=== PATIENT | male | born 1980 | race Caucasian/White ===

== ENCOUNTER 2016-10-06 14:22 | Outpatient (CLI) | payer MEDICAID ==
[~2016-10-06] VITALS: Ht 175.3 cm; Wt 69.5 kg
[~2016-10-06 14:22] MED LIST changes: -DICY20TA10 PO; -DONE10TA12 PO; -FLUO40CA12 PO; -GABA-488 PO; -MORP30CA16 PO; -OXYC-191 PO; -OXYC-202 PO
--- OUTSIDE RECORDS SUMMARY | 2016-10-06 14:30 | XMS REPORT | Continuity of Care Document ---
Author Author Jackelyn Ivey Jackelyn Address Unknown Phone Unavailable Care Team Providers Care Spray Technician Name Role Phone [employer] Unavailable Unavailable Problems Problem Status Onset Date Classification Date Reported Comments Source Acute diarrhea (disorder) Diagnosis 08/04/2016 [facility]. Intestinal obstruction co-occurrent and due to decreased peristalsis (disorder ) 07/31/2016 Diagnosis 08/04/2016 [facility]. Discharge Diagnosis: History of hydrocephalus 12/13/2015 12/17/2015 [facility] Discharge Diagnosis: Aching headache 12/12/20152015 [facility] Chronic migraine without aura, without mention of intractable migraine, without mention of status migrainosus 02/28/20152014 [facility] Drug induced headache, not elsewhere classified 02/28/2015 03/06/2015 [facility] Reaction to spinal or lumbar puncture 02/28/20152014 [facility] Headache 02/27/2015 03/06/2015 [facility] Obstructive hydrocephalus 03/06/2015 [facility] Opioid type dependence, in remission 12/26/2014 Diagnosis 12/31/2014 [facility]. Headache 11/18/2014 Diagnosis 11/23/2014 [facility]. Painful respiration 2014 Diagnosis 10/05/2014 [facility]. Post-traumatic headache, unspecified 07/26/2014 Diagnosis 07/31/2014 [facility]. Headache 05/11/2014 Diagnosis 05/15/2014 [facility]. Pain in limb 03/31/2014 Diagnosis 04/04/2014 [facility]. Personal history of other disorders of nervous system and sense organs 03/03/2014 Diagnosis 03/07/2014 [facility]. Tobacco user (finding) Resolved 05/27/2013 Problem 2016 Updated by Discern Expert based on Social History Documentation Added by Discern Expert based on Social History Documentation [email or web address] [employer] [facility], [place] [employer] [facility] [place] [employer] [facility], [place] [employer] [facility], [facility] Headache (finding) Active Problem 08/04/2016 [facility] [employer] [facility], [facility], [place] [employer] [facility], [facility] Headache disorder (disorder) Active Problem 08/04/2016 [place] [employer] [facility], [facility] Anxiety (finding) Active Problem 12/17/2015 [facility] Hydrocephalus (disorder) Active Problem 12/17/2015 [facility] Leukocytosis (disorder) Active Problem 12/17/2015 [facility] Migraine (disorder) Active Problem 12/17/2015 [facility] Anxiety state, unspecified 03/06/2015 [facility] Leukocytosis, unspecified 03/06/2015 [facility] Cannabis abuse, unspecified use 03/06/2015 [facility] History of tobacco use 03/06/2015 [facility] Unemployment 03/06/2015 [facility] Final: HEADACHES WO [facility] 03/06/2015 [facility] Other specified visual disturbances 03/02/2015 [facility] Medications Medication Details Route Status Patient Instructions Ordering Provider Order Date Source No Known Medications No known medications Active [place] [employer] [facility] Tdap 0.5 mL, SUSP, IM, ONCE, NOW, 03/09/11 13:58:00, Stop date 03/09/11 13:58:00 Inactive [facility] [place] [email or web address] [facility] propranolol 20 mg oral tablet </br>=40 mg, 2 tab, PO, BID, # 120 tab, 0 Refill(s), tab Active [facility] Acetaminophen 300 MG / butalbital 50 MG / Caffeine 40 MG Oral Capsule </br>1 cap, PO, Q4H, PRN Headache, # 10 cap, 1 Refill(s) Inactive [facility] Acetaminophen 325 MG / Hydrocodone Bitartrate 5 MG Oral Tablet [[place] 5/325] </br>1 tab, tab, ONCE, PO, Start date 03/01/15 11:52:00, Stop date 03/01/15 11: 52:00 </br>Notes: Not to exceed 4000 mg of acetaminophen TOTAL in 24 hours. TIME CRITICAL MED IF SCHEDULED Inactive [facility] Allergies, Adverse Reactions, Alerts Substance Category Reaction Severity Reaction type Status Date Reported Comments Source Morphine Assertion headache Drug intolerance [facility], [place] [employer] morphine drug intolerance headache Adverse Reaction Active [facility] Immunizations Immunization Date Given Site Status Last Updated Comments Source Tdap 03/09/2011 Left Deltoid tetanus/diphth/pertuss (Tdap) adult[facility]ad[facility], [place] [email or web address] [facility] tetanus/diphth/pertuss (Tdap) adult/adol 03/09/2011 completed [facility] No data available for this section No data available for this section [facility] Results Order Name Results Value Reference Range Date Interpretation Comments Source Consultation Consultation Patient: MAURIZIO PARRA Age: 35 years Sex: Male : 78 Associated Diagnoses: None Author: Michelle Balderas History of Present Illness Maurizio Parra is a 35 yo M with a PMHx significant for hydrocephalus s/p shunt removal in 2012. Patient presents to ED today with headache. Patient states that he has had about seven brain surgeries d/t hydrocephalus, the first around 2007 when he had a cerebral drain placed. He had a shunt placed at by Dr. Amaya with several subsequent revisions and a replacement. In 2012, the patient suffered an injury at work in which a heavy object was dropped on his head which resulted in shunt damage and the shunt was eventually removed at [facility] by Dr. Tao. Since that time, the patient has had chronic headaches, bilaterally retro-orbital. The headaches have become worse over the past 5-6 days. Denies fevers, chills or nuchal rigidity. Patient reports nausea and vomiting. Patient denies any recent change to his vision, although states that he just got new glasses yesterday. Patient was seen at [facility] ED in 2014 for similar complaints at which time patient was admitted with lumbar puncture was WNL and brain CT and MRI were obtained which did not demonstrate any acute intracranial process. CT Head was obtained today which demonstrated slight enlargement of 3rd ventricle and frontal horns of lateral ventricle. Review of Systems Constitutional: Negative except as documented in history of present illness. Eye: Negative except as documented in history of present illness. Ear/Nose/Mouth/Throat: Negative except as documented in history of present illness. Respiratory: Negative except as documented in history of present illness. Cardiovascular: Negative except as documented in history of present illness. Gastrointestinal: Negative except as documented in history of present illness. Genitourinary: Negative except as documented in history of present illness. Hematology/Lymphatics: Negative except as documented in history of present illness. Endocrine: Negative except as documented in history of present illness. Immunologic: Negative except as documented in history of present illness. Musculoskeletal: Negative except as documented in history of present illness. Integumentary: Negative except as documented in history of present illness. Neurologic: Negative except as documented in history of present illness. Psychiatric: Negative except as documented in history of present illness. Histories Past Medical History: Hydrocephalus, migraines, GERD Family History: Denies any significant FHx Procedure history: MRSA debridement of R axilla and L thigh "7 Cerebral Surgeries" - 4 at , 3 at [facility] - unsure of dates and exact procedures but states had a cerebral drain placed , a shunt placement, a shunt revision, and a shunt replacement and a shunt removal Social History Denies alcohol, tobacco and drug use. Physical Examination VS/Measurements Vital Signs 12/12/15 19:41 Temperature Route Oral Temperature Oral 97.9 DegF Heart Rate 80 bpm Resp. Rate 18 BRMIN Systolic BP 118 mmHg Diastolic BP 73 mmHg Oxygen Saturation 97 % Oxygen Therapy Room air Respiratory: Lungs are clear to auscultation, Respirations are non-labored, Breath sounds are equal, Symmetrical chest wall expansion. General: Alert and oriented, No acute distress. Cognition and Speech: Oriented, Speech clear and coherent. Eye: Pupils are equal, round and reactive to light, Extraocular movements are intact, Normal conjunctiva, Vision unchanged. HENT: Tympanic membranes are clear, Normal hearing, Oral mucosa is moist, No pharyngeal erythema, scars over right frontemporal scalp. Neck: Supple. Cardiovascular: Normal rate, Regular rhythm, No murmur, No gallop, Good pulses equal in all extremities, Normal peripheral perfusion. Musculoskeletal Normal range of motion. Normal strength. No tenderness. No swelling. No deformity. Normal gait. Integumentary: Warm, Dry, [place]. Neurologic: Alert, Oriented, Normal sensory, Normal motor function, No focal defects, Cranial Nerves II-XII are grossly intact. Review / Management CT Head w/o Cont [id number] - 02/25/15 15:09 Impression: No evidence of acute intracranial pathology. THIS IS AN ELECTRONICALLY VERIFIED REPORT 02/25/2015 3:25 PM: Jaime Brower M.D.GR:robert 03:24 PMT: 02/25/201503:25 pmRI MRI Brain w/o Cont [id number] - 03/01/15 09:26 Impression: 1. Stable dilation of the lateral ventricles and 3rd ventricle as compared to head CT of 02/25/2015. Given associated thinning of the corpus callosum, findings suggest chronicity. Differential considerations include aqueductus stenosis, likely from web or adhesion.2. Post surgical changes of right frontotemporal craniotomy and old right frontal ventriculostomy catheter tract.Dr. Faisal CarrizalesDr. Faisal Carrizales and the staff radiologist have jointly reviewed and interpreted the above examination CT Head w/o Cont [id number] - 12/12/15 20:49 Impression: 1. Enlargement of the ventricles, with slight interval enlargement of the third ventricle as well as the frontal horns of the lateral ventricles compared to the prior examination.2. No acute intracranial hemorrhage.3. Hypodensity in the right frontal region, stable.4. No depressed calvarial fracture. Portion of a prior shunt is visualized within the soft tissues of the right scalp, stable. THIS IS AN ELECTRONICALLY VERIFIED REPORT 2015 9:33 PM: Jaime Ashford M.D.TB:alexandria D: 201509:29 PMT: 12/12/201509:33 pmBO Impression and Plan Maurizio Parra is a 35 yo M with a PMHx significant for hydrocephalus s/p shunt removal in 2012 with slight interval enlargement of ventricles. -no need for acute neurosurgical intervention or admission at this time -request made for patient to follow up with Dr. Riggins in Neurosurgery Clinic Discussed case with Dr. Riggins. Michelle Balderas MD Emergency Medicine, PGY-1 Neurosurgery attending note: As above. I reviewed the imaging studies and discussed with the resident. CT scan is unchanged from previous scan in 2014. Patient's ventricles are slightly larger than his underlying edema but there is no evidence of active hydrocephalus. Suggested that the patient follow-up in the neurosurgery clinic for further evaluation. Possible lumbar puncture to measure opening pressure would be appropriate. 12/12/2015 [facility] CT Head w/o Cont [id number] CT Head w/o Cont [id number] Name: MAURIZIO PARRA CT Scan Accession Number Exam Exam Date/Time Ordering Physician [id number] CT Head w/o Cont 12/12/2015 20:49 CDT Joe Tubbs CPT code 37382 Reason For Exam (CT Head w/o Cont) headache, h/o hydrocephalus Report EXAMINATION: CT brain without contrast HISTORY: Headaches. History of hydrocephalus. Prior shunts. TECHNIQUE: Axial images were obtained through the brain without contrast administration. COMPARISON: 02/25/2015 FINDINGS: There is no depressed calvarial fracture. Burrholes within the calvarium are stable in appearance. There is no destructive osseous lesion. There is a portion of a prior shunt noted within the subcutaneous tissues of the right scalp, stable in appearance compared to the previous examination. There is no acute intracranial hemorrhage. There is no extra-axial fluid collection. The ventricles are enlarged. The third ventricle measures 1.6 cm, which is slightly larger than prior examination at which time it measured 1.3 cm. The frontal horns are also slightly larger than on the previous examination. Hypodensity in the right frontal region is stable. There is some periventricular hypodensity which has also remained stable compared to the previous examinations. IMPRESSION: 1. Enlargement of the ventricles, with slight interval enlargement of the third ventricle as well as the frontal horns of the lateral ventricles compared to the prior examination. 2. No acute intracranial hemorrhage. 3. Hypodensity in the right frontal region, stable. 4. No depressed calvarial fracture. Portion of a prior shunt is visualized within the soft tissues of the right scalp, stable. THIS IS AN ELECTRONICALLY VERIFIED REPORT 12/12/2015 9:33 PM: Jaime Ashford M.D. TB:tb 09:29 PM 09:33 pm Name: MAURIZIO PARRA CT Scan Accession Number Exam Exam Date/Time Ordering Physician [id number] CT Head w/o Cont 12/12/2015 20:49 CDT Joe Tubbs Report BOR Final Report Dictating Physician: Norma Marina ELECTRONIC SIGNATURE Signed: 12.12.2015 21:36 Signed by: Norma Marina Technologist: Hollie Forbes RT(R)(CT),Dale Yao RT(R) 12/12/2015 [facility] ED Note - Provider ED Note - Provider Patient: MAURIZIO PARRA Age: 35 years Sex: Male : 78 Associated Diagnoses: None Author: Joe Tubbs Basic Information History source: Patient. Arrival mode: Private vehicle. Additional information: Chief Complaint from Nursing Triage Note : Chief Complaint 12/12/15 19:41 Chief Complaint PT C/O HEADACHE AND DIZZINESS. PT HAS HYDROCEPHALUS , NO SHUNT CURRENTLY. DENIES VOMITING OR VISION CHANGES . History of Present Illness 35 y/o male with hydrocephalus and multiple prior surgeries presents for headache for the past week. Notes headache general and exactly like prior headaches. Also notes bilateral ear pressure. No f/c, n/v, dizziness, abd pain, chest pain, vision changes, numbness, tingling, weakness, trauma. He does not have a PCP or any home meds. He does not have insurance and has problems getting into clinics. Notes only medication that helps headache is dilaudid. Has tried toradol/compazine/zofran/benadryl/depakote/others in past without help. Notes problems since 2011 when he was hit in head at work and shunt malfunctioned and has had multiple surgeries since that time. Review of Systems Constitutional symptoms: Negative except as documented in HPI. Skin symptoms: Negative except as documented in HPI. Eye symptoms: Negative except as documented in HPI. ENMT symptoms: Negative except as documented in HPI. Respiratory symptoms: Negative except as documented in HPI. Cardiovascular symptoms: Negative except as documented in HPI. Gastrointestinal symptoms: Negative except as documented in HPI. Genitourinary symptoms: Negative except as documented in HPI. Musculoskeletal symptoms: Negative except as documented in HPI. Neurologic symptoms: Negative except as documented in HPI. Psychiatric symptoms: Negative except as documented in HPI. Additional review of systems information: All other systems reviewed and otherwise negative. Health Status Allergies: Allergic Reactions (Selected) No Known Allergies. Medications: (Selected) Prescriptions Prescribed propranolol 20 mg oral tablet: 40 mg, 2 tab, PO, BID, 120 tab, 0 Refill(s). Past Medical/ Family/ Social History Medical history h/o hydrocephalus s/p shunt and drain placements and removals. Surgical history: shunt and drain placements and removals. Family history: No family history items have been selected or recorded.. Social history: Alcohol 02/27/2015 Type: Beer Use: Past Comment: 12pack/week. Quit 2 years ago - 02/27/2015 16:21 - Kathrin Brown Recreational Drugs 02/27/2015 Frequency: Daily Type: Marijuana Use: Current Tobacco 02/27/2015 Type: Cigarettes Use: Current every day smoker Comment: 1 ciggarette/ day - 02/27/2015 16:21 - Kathrin Brown , Reviewed as documented in chart. Physical Examination Vital Signs Vital Signs 12/12/15 19:41 Temperature Route Oral Temperature Oral 97.9 DegF Heart Rate 80 bpm Resp. Rate 18 BRMIN Systolic BP 118 mmHg Diastolic BP 73 mmHg Oxygen Saturation 97 % Oxygen Therapy Room air . Weights and Measurements 12/12/15 19:41 Weight 73 kg Height 175 cm Body Mass Index 23.8 kg/m2 Weight Obtained Stated Weight . General: Alert, no acute distress. Skin: Warm, dry, pink. Head: Normocephalic, atraumatic. Neck: Supple, trachea midline. Eye: Pupils are equal, round and reactive to light, extraocular movements are intact. Ears, nose, mouth and throat: Tympanic membranes clear, oral mucosa moist, no pharyngeal erythema or exudate. Cardiovascular: Regular rate and rhythm, Normal peripheral perfusion, No edema. Respiratory: Lungs are clear to auscultation, respirations are non-labored, breath sounds are equal, Symmetrical chest wall expansion. Gastrointestinal: Soft, Nontender, Non distended, Normal bowel sounds. Musculoskeletal: Normal ROM, ambulatory with steady gait. Neurological: Alert and oriented to person, place, time, and situation, No focal neurological deficit observed, CN II-XII intact, normal sensory observed, normal motor observed, normal speech observed, normal coordination observed. Medical Decision Making Rationale: Will give pain meds and get head CT. Reassess.. Documents reviewed: Emergency department nurses' notes, emergency department records, prior records. Radiology results: IMPRESSION: 1. Enlargement of the ventricles, with slight interval enlargement of the third ventricle as well as the frontal horns of the lateral ventricles compared to the prior examination. 2. No acute intracranial hemorrhage. 3. Hypodensity in the right frontal region, stable. 4. No depressed calvarial fracture. Portion of a prior shunt is visualized within the soft tissues of the right scalp, stable. . Reexamination/ Reevaluation Time: 12/12/15 21:30:00 . Notes: Redose pain meds awaiting head CT. Time: 12/12/15 22:05:00 . Interventions: PowerOrders Patient Care: ED Consult (Order): 12/12/15 22:06, Neurosurgery. Notes: CT as above. Will have NSGY see him. . Time: 12/12/15 22:55:00 . Interventions: PowerOrders Non-Net Orders: Clinic Consult Neurosurgery HH (Order): 12/12/2015, headache, hydrocephalus, Clinically Significant MRI or CT Scan, 1 Week, Future Order, Dena Wheatley, Fidencio Non-Net Orders: ED Discharge Patient (Order): 12/12/15 22:56, Home. Notes: NSGY rec no intervention and to f/u in clinic. Pain improved. Return precautions given. He understood.. Impression and Plan Aching headache ([id number]) Hydrocephalus ([id number]) Plan Condition: Improved, Stable. Patient was given the following educational materials: Financial Assistance ( Custom). Follow up with: Follow up with primary care provider Take tylenol or ibuprofen as needed for pain. Follow up with your primary care doctor and Neurosurgery clinic. Return for any concerns. ; ; [facility]. Counseled: Patient, Regarding diagnosis, Regarding diagnostic results, Regarding treatment plan, Patient indicated understanding of instructions. Notes: Seen with Dr Wheatley. Attending Attestation Teaching-Supervisory Addendum I participated in the following activities of this patient's care: the medical history, the physical exam, medical decision making. I personally performed: supervision of the patient's care, the medical history, the physical exam, the medical decision making. The case was discussed with: the resident. Resident documentation: I agree with the resident's documentation. Results interpretation: I agree with the study interpretation in this patient's care. Notes: Patient interviewed and examined by me and I agree with above documentation and any changes/corrections are reflected in my note below. Attending signature: Dena Wheatley. 35 yo M with hydrocephalus (no shunt in), migraines, anxiety, PSA here with typical migraine. Not worst MORILLO of life, not thunderclap in onset. Afebrile, atraumatic, not on AC. Would like pain meds. VSS as above. Gen: NAD, A+Ox4, Neck : Supple, no tenderness, trachea midline, CV: RRR, nml S1 and S2, no edema, Lungs: CTAb, not labored, Abd: Soft, NTND, NRNG, +BS, Extrs: wnl, Neuro: A+Ox4, non focal, moving all 4 extrs. MORILLO: CT as above - will d/w Neurosurg-c, pain meds , dispo Dena Wheatley MD 12/12/2015 [facility] Discharge Summary Discharge Summary Patient: MAURIZIO PARRA Age: 34 years Sex: Male : 78 Associated Diagnoses: None Author: Gerda Irizarry Discharge Information Date of Admission: Admitted 02/27/2015, 03/01/2015. Attending Physician: Carolina Craig Primary Service: [facility]. Primary Diagnosis present or suspected on admission: Headache, worsening - ICD9 784.0 Secondary Diagnosis present or suspected on admission: Chronic migraine without aura - ICD9 346.70 Opioid-induced Headache Discharge or Transfer Condition: At discharge, Stable. Disposition: Home: Self-care. Services Provided in Hospital Consults Neurology consulted for intactable headache. Discharge Diet: Diet Type: Regular. Activity: Ambulate. Hospital Course Home Medication List Home Medications Current APAP/butalbital/caffeine: 1 cap, PO, Q4H, PRN: Headache, 10 cap, 1 Refill(s). propranolol: 40 mg, 2 tab, PO, BID, 120 tab, 0 Refill(s). MRI Head on 03/01: Impression: 1. Stable dilation of the lateral ventricles and 3rd ventricle as compared to head CT of 02/25/2015. Given associated thinning of the corpus callosum, findings suggest chronicity. Differential considerations include aqueductus stenosis, likely from web or adhesion. 2. Post surgical changes of right frontotemporal craniotomy and old right frontal ventriculostomy catheter tract. Mr. Parra is a 34 yo CM with a PMH of Hydrocephalus s/p shunt removal 2012, polysubstance abuse, and anxiety who presented to the ED with a CC of excruciating headache associated with nausea, photophobia, and phonophobia. Pt had been seen the previous day at [facility] for similar complaint. Pt states his headache had gotten worse and not resolved since his initial presentation. In the ED, results of prior lumbar puncture and CT were reviewed. Lumbar puncture WNL and CT did not demonstrate acute intracranial processes. Pt given diphenhydramine, metoclopramide, dilaudid 3 mg, and valium 5 mg. Pt remained restless and did not achieve relief with pain medication. As a result, pt was admitted to inpatient service. Upon initial evaluation, pt was mildly distressed complaining of excruciating headache that began in periorbital region wrapping around bilaterally and radiating down to his spine. Pt requested adjustment of pain management, requesting Throughout stay for a high dose of Dilaudid.He did not tolerate a dose of 50mcg Fentanyl and was switched back to Dilaudid 1mg Q3H Neurology was consulted.They recommended starting Caffeine pills and Propranolol 40mg. MRI done today shows no acute changes that can explain the intractable headache. On discharge today,patient is hemodynamically stable.He will go home with the above mentioned medications.PCP will follow up on pain management. Gerda Irizarry Internal Medicine PGY1 Attending Statement: I personally interviewed and examined Mr. Parra on the day of discharge, 03/01/15. Patient was ambulating and talking on the phone. He related headache was improved and was asking to go home. Neuro evaluation is detailed above and did not yield any acute issue. He will follow up with his local PCP. Carolina Craig MD molded grid and parts inspector 03/01/2015 [facility] Neurology Documents Neurology Documents Patient: MAURIZIO PARRA Age: 34 years Sex: Male : 78 Associated Diagnoses: None Author: Dereck Vu. Continues to complain of MORILLO, also notes worsening in back pain. Pt fixated on obtaining stronger pain medication, had to redirect to symptoms and exam 2-3 times a min. States dialudid only lasts for 2 hr out of 3, demands higher dose. Health Status Allergies: Allergic Reactions (Selected) No Known Allergies Current medications: (Selected) Inpatient Medications Ordered APAP/butalbital/caffeine: 1 tab, PO, Q4H, PRN: Headache Dilaudid: 1 mg, 1 mL, IVPush, Q3H, PRN: Pain, Breakthrough Valium: 10 mg, 2 tab, PO, Daily, PRN: Anxiety metoclopramide: 5 mg, 1 mL, IVPush, Q6H, PRN: Nausea/Vomiting ondansetron: 4 mg, 1 tab, PO, BID, PRN: Nausea/Vomiting propranolol: 40 mg, 2 tab, PO, BID Objective VS/Measurements Vital Signs 03/01/15 08:21 Temperature Oral 98.0 DegF Heart Rate 55 bpm LOW Resp. Rate 18 BRMIN Systolic BP 124 mmHg Diastolic BP 53 mmHg LOW Mean Arterial Pressure 77 mmHg BP Site Left Arm Oxygen Saturation 97 % Oxygen Therapy Room air , Bariatric Measurements : Bariatric View 03/01/15 05:00 Weight 72.8 kg Gen: Mild distress HEENT: normocephalic atruamatic Cards: RRR Resp: CTAB Extremities: no edema Neuro Exam: Neurological Mental Status Exam Arousal - Alert and interactive Orientation - Oriented to person, place, and time Attention - Intact Memory - 3/3 at 5 min Speech- normal rate and tone, fluent Neurological Elemental Examination: Cranial nerves: 1st cranial nerve: Not tested 2nd cranial nerve: VF intact, fundoscopic exam WNL 5th cranial nerve: symetrical to vibration, fine touch, and temp 7th cranial nerve: symetrical facial movements, no droop 8th cranial nerve: Not tested 11th cranial nerve: shoulder shrug 5/5 bilat 12th cranial nerve: tongue midline Sensory Exam: vibration, fine touch, and temp intact over all limbs Motor Exam: 5/5 all major muscle groups Coordination: F2N intact bilat Gait/Station: not assessed Deep tendon reflexes: Biceps Brachioradialis Patella Achilles Babinski R 2 2 2 2 Down L 2 2 2 2 Down Results Review LP 02/25/2015: Pt is left lateral decubitus, [id number] openning pressure, bloody tap but normal protein, glucose, and WBC CT Head 02/25/2015: FINDINGS: There is good villeda-white differentiation. The sulcal and gyral patterns are normal and abut the calvarium. The ventricles and subarachnoid spaces are normal. There is no evidence of hemorrhage or mass effect. The paranasal sinuses are well aerated without evidence of sinusitis. The calvarium is intact. The orbits are unremarkable. IMPRESSION: No evidence of acute intracranial pathology. MRI Brain 03/01/2015 Findings: Remote postsurgical changes of right frontotemporal craniotomy. Old right frontal ventriculostomy catheter tract is visualized. There is no restricted diffusion to indicate acute infarct. Tiny focus of gradient susceptibility in the right anterior limb/caudothalamic region likely relates to remote injury or trauma versus small cavernoma or calcification. No intracranial mass is identified. Stable dilation of the lateral and 3rd ventricles with thinning of the corpus callosum. The 3rd ventricle measures 13 mm, unchanged from the prior head CT. No evidence of Chiari malformation. Major arterial flow voids are present, indicating patency. The paranasal sinuses and mastoids are clear. The visualized orbits are unremarkable. Impression: 1. Stable dilation of the lateral ventricles and 3rd ventricle as compared to head CT of 02/25/2015. Given associated thinning of the corpus callosum, findings suggest chronicity. Differential considerations include aqueductus stenosis, likely from web or adhesion. 2. Post surgical changes of right frontotemporal craniotomy and old right frontal ventriculostomy catheter tract. Impression and Plan Pt is a 34 y/o CM with PMH of hydrocephalus with drain placement and subsequent removal, anxiety, h/o migranes, and h/o polysubstance abuse for whom neurology was consulted for the evaluation of intractable headaches. Pt is a poor historian 2/2 anxiety and pain. Burns-positive nature of HPI makes diagnosis of specfic MORILLO type impossible at this time. Unknown cause of hydrocephalus, but [place] records very clear that ICP does not play a significant role in his MORILLO. Suspect current headache multifactoral and includes rebound headache 2/2 opoid overuse vs spinal headache vs caffeine withdrawl headache vs atypical migrane vs post TBI headache. Feel that spinal MORILLO is unlikely given observed pt movements without noticable pain response and no MRI findings. 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 Pt exhibits strong cluser B traits with attempts to indimidate and bargain with staff for increased pain medications. Has lied several times about what other services/ nurses have done/said. Recs: - MRI brain as above, no cause identified. - Caffeine pills while inpatient, d/c on discharge - Propranolol 40mg BID, it appears pt has not used this class of medication for prophalaxis previously - Ibuprofen 800mg TID scheduled - Attempt to wean pt from narcotics as much as possible Neurology will sign off, page will questions Dereck Vu MD PGY1 Psychiatry Neurology attending: I saw and evaluated the patient on 03/01/15. I discussed the patient with Dr. Vu and agree with the findings and plan as documented. In addition, I note the following: Medication overuse headaches. MRI brain did not show acute abnormalities or underlying mass. Hydrocephalus chronic finding and probably not contributing to clinical presentation, patient had extensive evaluation in the past, including ICP monitoring ([facility]) and brain imaging with stable findings, condition probably related to congenital problem (could be aqueductus stenosis) but no clear documentation on prior records. Would recommend continue pain management and avoid chronic opioid use if possible. Patient was advised about the plan, including follow up with PCP and consider pain clinic referral in the future if needed. 03/01/2015 [facility] MRI Brain wo Cont [id number] MRI Brain wo Cont [id number] Name: MAURIZIO PARRA MRI Accession Number Exam Exam Date/Time Ordering Physician [id number] MRI Brain w/o Cont 03/01/2015 09:26 CDT Gerda Irizarry CPT code 42583 Reason For Exam (MRI Brain w/o Cont) headache Report Procedure: MRI Brain wo Cont [id number] Reason for exam: headache ; history of hydrocephalus Comparison: Head CT from 02/25/2015 Technique: Whole brain noncontrast 5 mm sagittal T1, 5 mm axial T2-SHAWN, 5 mm axial T2-FLAIR images, DWI with ADC maps, 5 mm axial T1-weighted images and axial GRE images. Findings: Remote postsurgical changes of right frontotemporal craniotomy. Old right frontal ventriculostomy catheter tract is visualized. There is no restricted diffusion to indicate acute infarct. Tiny focus of gradient susceptibility in the right anterior limb/caudothalamic region likely relates to remote injury or trauma versus small cavernoma or calcification. No intracranial mass is identified. Stable dilation of the lateral and 3rd ventricles with thinning of the corpus callosum. The 3rd ventricle measures 13 mm, unchanged from the prior head CT. No evidence of Chiari malformation. Major arterial flow voids are present, indicating patency. The paranasal sinuses and mastoids are clear. The visualized orbits are unremarkable. Impression: 1. Stable dilation of the lateral ventricles and 3rd ventricle as compared to head CT of 02/25/2015. Given associated thinning of the corpus callosum, findings suggest chronicity. Differential considerations include aqueductus stenosis, likely from web or adhesion. 2. Post surgical changes of right frontotemporal craniotomy and old right frontal ventriculostomy catheter tract. Dr. Faisal Carrizales and the staff radiologist have jointly reviewed and interpreted the above examination. Final Report Dictating Physician: Faisal Carrizales Resident Physician: Faisal Carrizales ELECTRONIC SIGNATURE Signed: 03.01.2015 13:14 Signed by: Atilio Burroughs M.D. Technologist: Ale Rider, RT(R)(CT)(MR),Serene Cam, RT(R)(MR) 03/01/2015 [facility] Student Note - Education Only Student Note - Education Only Patient: MAURIZIO PARRA Age: 34 years Sex: Male : [birth year] Associated Diagnoses: None Author: Jackeline Tavera Discharge Information Date of Admission: Admitted 02/26/2015. Hospital Course Mr. Parra is a 34 yo CM with a PMH of Hydrocephalus s/p shunt removal 2012, polysubstance abuse, and anxiety who presented to the ED with a CC of excruciating headache associated with nausea, photophobia, and phonophobia. Pt had been seen the previous day at [facility] for similar complaint. Pt states his headache had gotten worse and not resolved since his initial presentation. In the ED, results of prior lumbar puncture and CT were reviewed. Lumbar puncture WNL and CT did not demonstrate acute intracranial processes. Pt given diphenhydramine, metoclopramide, dilaudid 3 mg, and valium 5 mg. Pt remained restless and did not achieve relief with pain medication. As a result, pt was admitted to inpatient service. Upon initial evaluation, pt was mildly distressed complaining of excruciating headache that began in periorbital region wrapping around bilaterally and radiating down to his spine. Pt requested adjustment of pain management, requesting decreased dosing of Dilaudid at shorter intervals. Pt was switched to Dilaudid 1 mg Q3H. Throughout stay 03/01/2015 [facility] Student Note - Education Only Student Note - Education Only Patient: MAURIZIO PARRA Age: 34 years Sex: Male : [birth year] Associated Diagnoses: None Author: Jackeline Tavera Discharge Information Date of Admission: Admitted 02/26/2015. Hospital Course Mr. Parra is a 34 yo CM with a PMH of Hydrocephalus s/p shunt removal 2012, polysubstance abuse, and anxiety who presented to the ED with a CC of excruciating headache associated with nausea, photophobia, and phonophobia. Pt had been seen the previous day at [facility] for similar complaint. Pt states his headache had gotten worse and not resolved since his initial presentation. In the ED, results of prior lumbar puncture and CT were reviewed. Lumbar puncture WNL and CT did not demonstrate acute intracranial processes. Pt given diphenhydramine, metoclopramide, dilaudid 3 mg, and valium 5 mg. Pt remained restless and did not achieve relief with pain medication. As a result, pt was admitted to inpatient service. Upon initial evaluation, pt was mildly distressed complaining of excruciating headache that began in periorbital region wrapping around bilaterally and radiating down to his spine. Pt requested adjustment of pain management, requesting Throughout stay 03/01/2015 [facility] Urinalysis UA Leuk Est Negative (02/28/15 11:40 AM) Negative 02/28/2015 [facility] Urine Drug Screen U Barbiturates Negative *NA* (02/28/15 11:40 AM) 2014 [facility] Urine culture bacterial No growth at 24 hours 2014 [facility] Neurology Documents Neurology Documents Patient: MAURIZIO PARRA Age: 34 years Sex: Male : [birth year] Associated Diagnoses: None Author: Dereck Vu Chief Complaint 02/27/15 15:54 "It's worse, I was here last night". Reports here last noc for MORILLO and had LP done. "From my eyes to my back, everything hurts". Reports pain worsened after getting home from ER visit at [place]. + blurry vision. Pt. went to [facility] this morning History of Present Illness Mr. Parra is a 34 y/o CM with pmh of hydrocephalus since 2006, anxiety, and history of polysubstance abuse. He presented to the ED 02/26/2015 with MORILLO, he was also seen in the ED 02/25/2015 for MORILLO. Pt has been having headaches since the age of 26, no headaches in childhood. Pt unable to give definate frequency of headaches, but seem to range from 1-2 a month to daily. Headaches are usually throbbing and are bilaterally fronto-occipital and retroorbital with some radiation down the neck. Pt states pain radiates further down his back after LP in ER. Notes photophobia, phonophobia, n/v, double vision, blurry vision, pain on extreme gaze. Denies incontinence, seizures, blindness, gait disturbances, or dysmetria. Pt states pain is 10/10 and has been since admitted. Pt was sleeping at begining of examination, became increasingly distressed during examination and frequently asked for pain medication. Review of Systems 12 point review of systems negative except as above Health Status Allergies: Allergic Reactions (Selected) No Known Allergies Current medications: (Selected) Inpatient Medications Ordered APAP/butalbital/caffeine: 1 tab, PO, Q4H, PRN: Headache Valium: 10 mg, 1 tab, PO, Daily, PRN: Anxiety fentaNYL: 50 mcg, 1 mL, IVPush, Q2H metoclopramide: 15 mg, 3 mL, IVPush, Q4H, PRN: Nausea/Vomiting ondansetron: 4 mg, 1 tab, PO, BID, PRN: Nausea/Vomiting Histories Past Medical History: h/o migraines, h/o hydrocephalus of unknown cause, anxiety Past Surgical History: MRSA debridement of R axilla and L thigh "7 Cerebral Surgeries" - 4 at , 3 at [facility] - unsure of dates and exact procedures but states had a cerebral drain placed , a shunt placment, a shunt revision, and a shunt replacment. Shunt was removed in the past Family History: Sister with fibromyalgia Mother, Father, and 3 Brothers living and healthy with no known medical conditions Social History: Single, has 1 son unemployed Smokes 1 cigar daily, former smoker of 1/2 ppd x 5 years quit in 2013. Smokes marijuana daily Denies Alcohol Denies illicits Physical Examination VS/Measurements Vital Signs 02/28/15 12:00 Temperature Oral 98.4 DegF Heart Rate 87 bpm Resp. Rate 16 BRMIN Systolic BP 126 mmHg Diastolic BP 71 mmHg Mean Arterial Pressure 89 mmHg BP Site Left Arm Cuff Size Adult Long Cuff Oxygen Saturation 97 % Oxygen Therapy Room air , Bariatric Measurements : Bariatric View 02/28/15 05:00 Weight 69.7 kg Gen: Moderate distress HEENT: normocephalic atruamatic Cards: RRR Resp: CTAB Extremities: no edema Neuro Exam: Neurological Mental Status Exam Arousal - Alert and interactive Orientation - Oriented to person, place, and time Attention - Intact Memory - 3/3 at 5 min Speech- normal rate and tone, fluent Neurological Elemental Examination: Cranial nerves: 1st cranial nerve: Not tested 2nd cranial nerve: VF intact, fundoscopic exam WNL 5th cranial nerve: symetrical to vibration, fine touch, and temp 7th cranial nerve: symetrical facial movements, no droop 8th cranial nerve: Not tested 11th cranial nerve: shoulder shrug 5/5 bilat 12th cranial nerve: tongue midline Sensory Exam: vibration, fine touch, and temp intact over all limbs Motor Exam: 5/5 all major muscle groups Coordination: F2N intact bilat Gait/Station: not assessed Deep tendon reflexes: Biceps Brachioradialis Patella Achilles Babinski R 2 2 2 2 Down L 2 2 2 2 Down Health Maintenance Health Maintenance Pending (in the next year) Due HIV Testing due 02/28/15 One-time only Lipid Screening due 02/28/15 and every 5 yr MMR Vaccine Dose 1 due 02/28/15 One-time only Tetanus Vaccine due 02/28/15 and every 10 yr Due In Future Influenza Vaccine not due until 03/21/15 and every 1 yr Satisfied (in the past 1 year) There are no satisfied recommendations within the defined date range Review / Management Results review: Lab results 02/28/15 11:40 U Amphetamines Negative U Barbiturates Negative U Benzodiazepines Positive U Cannabinoids Positive U Cocaine Negative U Opiates Positive U PCP Negative . LP 02/25/2015: Pt is left lateral decubitus, [id number] openning pressure, bloody tap but normal protein, glucose, and WBC CT Head 02/25/2015: FINDINGS: There is good villeda-white differentiation. The sulcal and gyral patterns are normal and abut the calvarium. The ventricles and subarachnoid spaces are normal. There is no evidence of hemorrhage or mass effect. The paranasal sinuses are well aerated without evidence of sinusitis. The calvarium is intact. The orbits are unremarkable. IMPRESSION: No evidence of acute intracranial pathology. Impression and Plan Pt is a 34 y/o CM with PMH of hydrocephalus with drain placement and subsequent removal, anxiety, h/o migranes, and h/o polysubstance abuse for whom neurology was consulted for the evaluation of intractable headaches. Pt is a poor historian 2/2 anxiety and pain. Burns-positive nature of HPI makes diagnosis of specfic MORILLO type impossible at this time. Unknown cause of hydrocephalus, but [facility] records very clear that ICP does not play a significant role in his MORILLO. Suspect current headache multifactoral and includes rebound headache 2/2 opoid overuse vs spinal headache vs caffeine withdrawl headache vs atypical migrane vs post TBI headache. Feel that spinal MORILLO is unlikely given observed pt movements without noticable pain response. Obtaining records from as to initial indication for shunt and initial presentation/cause of hydrocephalus will be ramachandran for buttermaker continuous churn therapy success. Recs: - MRI brain - Caffeine pills while inpatient, d/c on discharge - Propranolol 40mg BID, it appears pt has not used this class of medication for prophalaxis previously - Ibuprofen 800mg TID scheduled - Attempt to wean pt from narcotics as much as possible - No blood patch at this time, will continue to monitor Neurology will continue to follow, page with questions Dereck Vu MD PGY1 Psychiatry Neurology attending: I saw and evaluated the patient on 02/28/15. I discussed the patient with Dr. Vu and agree with the findings and plan as documented. In addition, I note the following: Consult requested by: Dr. Craig (Internal Medicine Department) History: Headaches have been chronic per patient report (years), localized at the top of his head and radiated to his whole head, pressure-type in quality, associated with photophobia, phonophobia and nausea. Patient reports worsening of the headaches with Valsalva maneuver and with position changes, this has happened chronically. He has tried numerous medications in the past for headache prevention without success. Patient denies family history of headaches or migraines. He reports worsening symptoms after lumbar puncture yesterday. Exam: Neuro exam: Alert, oriented x 3, following commands. Speech with intact comprehension, repetition and naming. No aphasia or dysarthria. CN: II-XII: Visual patel full to finger confrontation, pupils are equal and reactive to light, funduscopic exam with no papilledema, extraocular eye movements are intact. No nystagmus. Normal sensation. Shrug shoulder is symmetric. Tongue is midline. Motor: 5/5 in both upper and lower extremities. Normal tone, no abnormal movements during exam. Sensory intact to all modalities including pinprick, temperature and vibration in both upper and lower extremities. Coordination is intact to [id number] bilaterally. DTRs: 2+ in biceps, triceps, patellar reflex bilaterally, 1+ ankle reflex bilaterally. Babinski sign is absent, clonus is not elicited. Gait was not assessed Imaging: CT head non-contrast: No acute abnormality, chronic hydrocephalus (similar findings compared to previous CT scans at [facility]). Assessment: Patient with history of chronic daily headaches. Given chronic opiate use, main diagnosis is compatible with medication overuse headaches. Patient also has some features of migraines and component of post spinal headache is also possible. CSF studies, including opening pressure is basically unremarkable, CT scan had noncontrast showed chronic findings suggestive of hydrocephalus ( unclear etiology, probably congenital), but similar findings compared to previous studies done at . Neurological exam with no papilledema. Hydrocephalus is less likely to explain worsening headaches given stable brain imaging, unremarkable CSF findings as well as funduscopic exam. We recommend propranolol as prophylactic agent for headaches (however patient has tried numerous medications in the past without benefit), another consideration could be venlafaxine use in the future if needed given significant anxiety reported, decrease the amount of pain medications including opiates due to medication overuse headaches. We advised patient to keep appointment with psychiatry to manage his underlying mood problems which may also contribute to his multiple symptoms. Recommendations: 1. Continue with pain management, keep good hydration including use of IV fluids. 2. Start propranolol 40 mg by mouth bid for headache prophylaxis. 3. Consider use of antiemetics, NSAIDs (toradol, ibuprofen or naproxen) and/or oral caffeine. 4. MRI brain without contrast to evaluate for intracranial abnormalities. 02/28/2015 [facility] Student Note - Education Only Student Note - Education Only Patient: MAURIZIO PARRA Age: 34 years Sex: Male : 78 Associated Diagnoses: None Author: Jackeline Tavera Subjective Pt states his headache has not resolved. Pt rates pain at 9/10. States his pain medication has not helped. He is requesting pain medication Q2h and is willing to decrease dose. Pt reports he has been vomiting since yesterday, has not ate food. Pt reports NV. Pt states he has not urinated or had a BM. Health Status Current medications: (Selected) Inpatient Medications Ordered Dilaudid: 2 mg, 1 mL, IVPush, Q3H, PRN: Pain Severe Valium: 10 mg, 1 tab, PO, Daily, PRN: Anxiety metoclopramide: 15 mg, 3 mL, IVPush, Q4H, PRN: Nausea/Vomiting ondansetron: 4 mg, 1 tab, PO, BID, PRN: Nausea/Vomiting Objective VS/Measurements Vital Signs 02/28/15 12:00 Temperature Oral 98.4 DegF Heart Rate 87 bpm Resp. Rate 16 BRMIN Systolic BP 126 mmHg Diastolic BP 71 mmHg Mean Arterial Pressure 89 mmHg BP Site Left Arm Cuff Size Adult Long Cuff Oxygen Saturation 97 % Oxygen Therapy Room air General: Alert and oriented, Mild distress. Eye: pinpoint pupils. HENT: Normal hearing. Neck: Supple, Non-tender. Respiratory: Lungs are clear to auscultation, Respirations are non-labored, Breath sounds are equal, Symmetrical chest wall expansion. Cardiovascular: Normal rate, Regular rhythm, No murmur, Good pulses equal in all extremities, No edema. Gastrointestinal: Soft, Non-tender, Non-distended, decreased bowel sounds. Musculoskeletal Normal range of motion. Normal strength. tremor . Integumentary: Warm, Dry. Neurologic: Alert, Oriented, Normal sensory, Normal motor function, No focal defects, Cranial Nerves II-XII are grossly intact, Normal deep tendon reflexes. Psychiatric: Cooperative. Results Review General results Today's results 02/28/15 11:40 Creatinine, Urine Random 299.4 mg/dL NA U Amphetamines Negative U Barbiturates Negative U Benzodiazepines Positive U Cannabinoids Positive U Cocaine Negative U Opiates Positive U PCP Negative 02/28/15 02:55 Sodium 138 mmol/L Potassium 4.6 mmol/L Chloride 102 mmol/L CO2 22 mmol/L Anion Gap 14 mmol/L Glucose 85 mg/dL BUN 11 mg/dL Creatinine 0.71 mg/dL LOW BUN/Creat Ratio 15.5 GFR -M[place] >90 mL/min/1.73m2 GFR Non -M[place] >90 mL/min/1.73m2 Calcium 9.0 mg/dL Osmo (Calc) 285 mOsm/kg 3/cmm 6/cmm Hemoglobin 14.1 g/dL Hematocrit 43.5 % MCV 95.8 FL MCH 31.0 PG XR Chest 2 Views [id number] - 02/27/15 05:25 Impression: No acute cardiopulmonary process.Dr. Andrew CasperDr. Andrew Casper and the staff radiologist have jointly reviewed and interpreted the above examination CT Head w/o Cont [id number] - 02/25/15 15:09 Impression: No evidence of acute intracranial pathology. THIS IS AN ELECTRONICALLY VERIFIED REPORT 02/25/2015 3:25 PM: Oscar Casillas M.D. Oscar Casillas M.D.GR:robert 03:24 PMT: 02/25/201503:25 pmRI Impression and Plan Mr. Parra is a 34 yo CM with a PMH of Hydrocephalus, poly substance abuse, and anxiety who presented with a CC of MORILLO persisted for 4x without resolve. MORILLO: Opiod/drug withdrawal vs hydrocephalus vs infection vs intractable MORILLO -CT completed at ER visit 02/25 did not indicate acute intracranial pathology -LP completed 02/25 revealed opening pressure 21 cm, WBC 1, RBC 9; CSF stain negative -Pt reports hx of brain surgery starting in 2006 at and [facility], records requested -Pt will need outpatient f/u with Neuro -Adjust Dilaudid to 2 mg Q2H -Order UDS, CRP Leukocytosis -WBC 9.0 trending down, afebrile -Order UA, sputum culture, blood culture -Will not start abx at this time Anxiety -Continue home medication Valium 10 mg 02/28/2015 [facility] Inpatient Progress Note Inpatient Progress Note Patient: MAURIZIO PARRA Age: 34 years Sex: Male : [birth year] Associated Diagnoses: None Author: Carolina Craig continues to complain of headache nad nausea.Headache is at .Dilaudid dose decreased to 2mg Q3H this morning since nurses called in to say he has been really somnolent with 2.5mg. Records from and [facility] yet to be recieved. Objective General: Alert and oriented, Mild distress, crying when discussing pain management.. Eye: Pupils are equal, round and reactive to light, Vision unchanged, EOM painful+. Respiratory: Lungs are clear to auscultation, Respirations are non-labored, Breath sounds are equal. Cardiovascular: Normal rate, Regular rhythm, No murmur. Gastrointestinal: Soft, Non-tender, Non-distended, Normal bowel sounds. Neurologic: Alert, Oriented, Normal sensory, Normal motor function, No focal defects, Normal deep tendon reflexes. Does have hand rest tremor, not worse with intention. Assessment Last Vital Signs 02/28/15 07:52:12 Heart Rate 69 bpm Respiratory Rate 17 BRMIN 98.4 DegF BP Primary (Left Arm) 147/54 BP Optional () / Height 175 cm Weight 69.7 kg BMI 23.7 kg/m2 Last Lab Results BMP: (Date 02/28/15 ) Hematology Tests: (Date) Others: (Date) Lipid Profile: ( Date ) Sodium 138 mmol/L Hgb 14.1 (02/28/15) TSH () Triglycerides Potassium 4.6 mmol/L HgbA1C () CPK () Cholesterol Phosphorus WBC 9.00 (02/28/15) AST /ALT () HDL Magnesium PLT 141 (02/28/15) Tropinin () LDL Creatinine 0.71 mg/dL INR () Albumin () BUN 11 mg/dL Ur MAB/Cr () CrCl 0.71 ml/min Plan 1. Headache 2/2 Opioid-induced vs increased icp 2/2 hydrocephalus: does not appear to have an acute change. We will get Neurology's input on diagnosis and treatment. Withdrawal is a consideration with no urine drug test and tremulousness. As has been sommulent, will begin to decrease IV narcotics and then proceed as per Neuro recs. We are attempting to get UDS. Appreciate neuro seeing. 2. Leukocytosis, resolving. No fever. Not able to evaluate UA as not collected. Gerda Irizarry, PGY-1 Attending Statement: I personally interviewed and examined Mr. Parra on . I confirmed the history and PE as noted above by Dr. Irizarry. I reviewed the data with the team and directed the plan. Carolina Craig MD molded grid and parts inspector 02/28/2015 [facility] Chemistry Potassium 4.6 mmol/ L 3.6 - 5.1 02/28/2015 [facility] Hematology Baso % 0.6 % 0.0 - 2.0 02/28/2015 [facility] GS Specimen rejected: Contains >25 squamous epithelial cells. Please resubmit. Person Notified: Yanique Dutta on 02/28/15 at 0850 on 4 green [id number]. 02/28/2015 [facility] Inpatient Progress Note Inpatient Progress Note Patient: MAURIZIO PARRA Age: 34 years Sex: Male : 78 Associated Diagnoses: None Author: Yola Castañeda I was called by the caring nurse that the patient has nausea and had an episode of billious vomiting Impression: opiod or headache induced Plan: Add metoclopramide 10 mg I.V. q 6 hours Yola Castañeda M.D. PGY-1, Internal Medicine Pager [phone] 02/27/2015 [facility] Blood culture bacterial No growth at 5 days. 2014 [facility] Blood culture bacterial No growth at 5 days. 2014 [facility] Student Note - Education Only Student Note - Education Only Patient: MAURIZIO PARRA Age: 34 years Sex: Male : [birth year] Associated Diagnoses: None Author: Jackeline Tavera Subjective Mr. Parra states his headache has gotten worse since last night. He describes the pain as excruciating 04/28. He reports pain subsided to 2 after receiving dilaudid 2mg. He describest the MORILLO starting behind his eyes and wrapping around his head bilaterally going down his neck and back. Pt reports difficulty with memory. MORILLO is associated with photophobia, phonophobia, nausea, and diziness. Pt reports clear productive cough. Pt denies vomiting. ROS completed, positives noted above. Health Status Current medications: (Selected) Inpatient Medications Ordered Dilaudid: 3 mg, 3 mL, IVPush, Q2H, PRN: Pain Severe Valium: 10 mg, 1 tab, PO, Daily, PRN: Anxiety Objective VS/Measurements Vital Signs 02/27/15 06:05 Heart Rate 57 bpm LOW Resp. Rate 18 BRMIN Systolic BP 123 mmHg Diastolic BP 67 mmHg Mean Arterial Pressure 86 mmHg Oxygen Saturation 97 % Oxygen Therapy Room air General: Alert and oriented, Mild distress, Pt shivering, sitting upright in bed and rocking, visibly in pain, tearful. Eye: Extraocular movements are intact, pupils constricted. HENT: frontal and maxillary sinus TTP. Neck: Supple, No lymphadenopathy, TTP posteriorly . Respiratory: Lungs are clear to auscultation, Respirations are non-labored, Breath sounds are equal, Symmetrical chest wall expansion. Cardiovascular: Normal rate, Regular rhythm, No murmur. Gastrointestinal: Soft, Non-tender. Musculoskeletal Normal range of motion. Normal strength. strength 5/5, cervical and thoracic spine TTP. Neurologic: Alert, Oriented, Normal motor function, No focal defects, Cranial Nerves II-XII are grossly intact, Normal deep tendon reflexes. Psychiatric: Cooperative. Results Review General results Today's results 02/26/15 23:17 Sodium 141 mmol/L Potassium Hemolysis Chloride 105 mmol/L CO2 23 mmol/L Anion Gap 13 mmol/L Glucose 95 mg/dL BUN 8 mg/dL Creatinine 0.82 mg/dL LOW BUN/Creat Ratio 9.8 LOW GFR -Moldovan >90 mL/min/1.73m2 GFR Non -Moldovan >90 mL/min/1.73m2 Calcium 9.3 mg/dL Osmo (Calc) 290 mOsm/kg 3/cmm HI 6/cmm Hemoglobin 13.9 g/dL LOW Hematocrit 41.8 % CT Head w/o Cont [id number] - 02/25/15 15:09 Impression: No evidence of acute intracranial pathology. THIS IS AN ELECTRONICALLY VERIFIED REPORT 02/25/2015 3:25 PM: Oscar Casillas M.D. Oscar Casillas M.D.GR:robert 03:24 PMT: 02/25/201503:25 pmRI XR Chest 02/27/15 No acute cardiopulm process Impression and Plan Mr. Parra is a 34 yo CM with a PMH of Hydrocephalus, poly substance abuse, and anxiety who presented with a CC of MORILLO persisted for 4x without resolve. MORILLO: Opiod/drug withdrawal vs hydrocephalus vs encephalitis -CT completed at ER visit 02/25 did not indicate acute intracranial pathology -LP completed 02/25 revealed opening pressure 21 cm, WBC 1, RBC 9; CSF stain negative -Pt reports hx of brain surgery starting in 2006 at and [facility], records requested -Pt will need outpatient f/u with Neuro -Start Caffeine pills -Adjust Dilaudid to 2.5 mg Q2H -Order UDS, CRP Leukocytosis -WBC elevated 16.8, afebrile -Order UA, sputum culture, blood culture -Will not start abx at this time Anxiety -Continue home medication Valium 10 mg 02/27/2015 [facility] XR Chest 2 Views [id number] XR Chest 2 Views [id number] Name: MAURIZIO PARRA Diagnostic Radiology Accession Number Exam Exam Date/Time Ordering Physician [id number] XR Chest 2 Views 02/27/2015 05:25 CDT Bianca Navarro CPT code 32655 Reason For Exam (XR Chest 2 Views) Cough, leukocytosis Report Study: XR Chest 2 Views [id number] Reason for exam: Cough, leukocytosis Comparison: None. Findings: Lungs: Normal lung volume. No focal consolidations. Normal pulmonary vasculature. Pleura: No pleural effusion or pneumothorax. Heart and mediastinum: The cardiomediastinal silhouette and great vessels are normal. Bones: No acute osseous abnormality. Remote left posterior lower rib fractures. Impression: No acute cardiopulmonary process. Dr. Andrew Casper and the staff radiologist have jointly reviewed and interpreted the above examination. Final Report Dictating Physician: Andrew Casper Resident Physician: Andrew Casper ELECTRONIC SIGNATURE Signed: 02.27.2015 18:38 Signed by: Faby Neal Technologist: Shanell Nassar RT(R)(CT) 02/27/2015 [facility] Blood Bank Cumulativ ABORH TYPE A POS 02/27/2015 [facility] POS 02/27/2015 [facility] Chemistry CO2 23 mmol/L 22 - 32 02/27/2015 [facility] Hematology NRBC Auto 0.0 / 100WBC 02/27/2015 [facility] Special Hematology Sed Rate 5 mm/h 1 - 10 02/27/2015 [facility] History and Physical History and Physical Patient: MAURIZIO PARRA Age: 34 years Sex: Male : [birth year] Associated Diagnoses: None Author: Bianca Navarro Chief Complaint 02/26/15 19:27 "It's worse, I was here last night". Reports here last noc for MORILLO and had LP done. "From my eyes to my back, everything hurts". Reports pain worsened after getting home from ER visit at [place]. + blurry vision. Pt. went to [facility] this morning History of Present Illness Mr. Parra is a 34 y/o male with past medical history significant for Hydrocephalus since 2006, anxiety, and history of polysubstance abuse. He presented to the ED today with MORILLO, he was also seen in the ED yesterday for MORILLO. MORILLO started Thursday, he woke up with it. It is located retro-orbital b/l and radiates down his neck and his back to his waistline. The pain started as retro- ortibal and didn't start to radiate until he received the Lumbar Puncture in ED yesterday. It is a 10/10 and throbbing in nature. It has been constant since onset. It is worse with bending forward, coughing, laughing, sneezing, and bearing down. It is better when he lays down and turns the lights off. It is associated with photosensitivity, neck stiffness, nausea, llightheadedness, dizziness, presyncope, blurry vision, double vision, ocular pain with eye movement. He denies fever/chills, vomiting, diarrhea, loss of bowel/bladder control, syncope. He reports similar episodes in the past, he averages 1-2 episodes per month but never this severe. His previous episodes are a 6-7/10. He reports a constant headache at baseline that doesn't require pain medication if it is <4-5/10. He has been seeing a new PCP Dr. Easton Chappell for the last month. He switched his medication from Dilaudid 16 mg q d to Oxycodone 20 mg q d last week and patient believes he is having a rebound headache because of this. He reports that he has been on the Dilaudid 16 mg q d for at least the last year and it is the only thing that controls his pain. Review of Systems ROS positive for chronic tingling in b/l hands, cough producing clear phlegm, headache, nausea, blurry/double vision, lightheadedness, dizziness, neack pain, eye pain, back pain, photosynsitivity, otherwise negative. Health Status Allergies: Allergic Reactions (Selected) No Known Allergies Current medications: Medications (10) Active Scheduled: (10) diazepam , PYXIS, ONCE diazepam 10mg/2ml inj 5 mg 1 mL, IVPush, ONCE diphenhydrAMINE inj 50 mg/ml 25 mg 0.5 mL, IVPush, ONCE HYDROmorphone 2 mg/ml inj 2 mg 1 mL, IVPush, ONCE ketorolac 30mg/1ml inj 30 mg 1 mL, IVPush, ONCE metoclopramide 10 mg/2 ml inj 10 mg 2 mL, IVPush, ONCE ondansetron , PYXIS, ONCE ondansetron 4 mg/2 ml inj 4 mg 2 mL, IVPush, ONCE sodium chloride , PYXIS, ONCE sodium chloride , PYXIS, ONCE Continuous: (0) PRN: (0) Problem list: All Problems Anxiety / SNOMED CT 17970261 / Confirmed Hydrocephalus / SNOMED CT 376643136 / Confirmed Migraines / SNOMED CT 67893180 / Confirmed Histories Past Medical History: All Problems Anxiety / SNOMED CT 72286647 / Confirmed Hydrocephalus / SNOMED CT 180371150 / Confirmed Migraines / SNOMED CT 04174320 / Confirmed Procedure history: No active procedure history items have been selected or recorded. Past Surgical History: MRSA debridement of R axilla and L thigh "7 Cerebral Surgeries" - 4 at , 3 at [facility] - unsure of dates and exact procedures but states had a cerebral drain placed , a shunt placment, a shunt revision, and a shunt replacment. Family History: Sister with fibromyalgia Mother, Father, and 3 Brothers living and healthy with no known medical conditions Social History: Single, has 1 son unemployed Smokes 1 cigar daily, former smoker of 1/2 ppd x 5 years quit in 2013. Smokes marijuana daily Denies Alcohol Denies illicits Physical Examination VS/Measurements Vital Signs 02/26/15 21:41 Temperature Route Oral Temperature Oral 98.0 DegF Heart Rate 79 bpm Resp. Rate 20 BRMIN Systolic BP 120 mmHg Diastolic BP 56 mmHg LOW Oxygen Saturation 100 % Oxygen Therapy Room air 02/26/15 19:27 Temperature Route Oral Temperature Oral 98.1 DegF Heart Rate 68 bpm Resp. Rate 20 BRMIN Systolic BP 107 mmHg Diastolic BP 63 mmHg Oxygen Saturation 97 % Oxygen Therapy Room air General: Alert, no acute distress. Skin: Warm, dry, pink. Head: Normocephalic, atraumatic. Eye: Pupils are equal, extraocular movements are intact, normal conjunctiva. Cardiovascular: Regular rate and rhythm, No murmur, Normal peripheral perfusion , No edema. Respiratory: Lungs are clear to auscultation, respirations are non-labored, breath sounds are equal, Symmetrical chest wall expansion. Gastrointestinal: Soft, Nontender, non distended, bowel sounds present Musculoskeletal: Normal ROM, normal strength, Extremities: no clubbing, cyanosis, edema Neurological: Alert and oriented to person, place, time, and situation, No focal neurological deficit observed, normal motor observed, normal speech observed. Impression and Plan Headache -differential includes: rebound MORILLO/opioid withdrawal, Hydrocephalus, Intractable MORILLO vs Migraine -If pain continues consider Neuro Consult and MRI brain vs Repeat Lumbar Puncture -On previous ED visit on 02/25/15: Given dilaudid as requested with partial relief, CT here was WNL, records from unenlightening. Attempted Compazine cocktail, 30 minutes later pt states no relief. Performed LP 8mL clear fluid was obtained, opening pressure was 21cm, normal except RBC: 9. CSF culture was neg. Pain controlled, He was discharged to f/u with PCP in several days, advised further f/u with Neurology or Neurosurgery. -Dilaudid 3 mg q 3 h prn headache Leukocytosis -UA -Chest X ray -sputum culture -monitor CBC/BMP Anxiety -continue home dose Vallium 10 mg q d Bianca Navarro PGY-1 Internal Medicine - Requesting outside records from and [facility] for Discharge summaries, med recs, and imaging. Agree with above assessment and plan. In brief, Mr Parra is a 34 yo male with past medical history significant Hydrocephalus since 2006, anxiety, and history of polysubstance abuse presenting with intractable headache. Of note, pt was seen in ED 02/25/15 when LP was performed and CT head negative. Pt states headache is a chronic issue, occuring when pt wakes up, associated with nausea, photophobia, blurry vison, mostly pre-frontal, non radiating. He does admit to narcotic dependence in the past. He is being seen by new PCP, Dr. 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 he was switched from dilaudid to oxycodone within the past month and states MORILLO has been more recurrent since then. In ED, pt has had multiple doses of dilaudid and toradol, which pt states has helped alleviate his MORILLO breifly. Labs significant for leukocytosis. ROS: +productive cough (clear sputum) PE: Afebrile. Mild distress 2/2 MORILLO/Pain. RRR. CTAB. Abdo soft/NT/ND +BS. No edema BLE. PERRLA. ASSESSMENT: Intractable MORILLO 2/2 rebound morillo from opiod withdrawal, MORILLO vs migraine , NPH?, Leukocytosis, Anxiety PLAN: CT head and LP negative on 02/25/15. Pt with chronic headaches. Will attempt pain control with dilaudid 3 mg q2H (pt is narcotic dependent, decreased interval from q3H to q2H). If pain persists, primary team to consider neuro consult vs repeat LP vs MRI brain. Will request records from and [facility] for further look into hydrocephalus and associated procedures. Will order U/A, CXR and sputum culture as pt with productive cough + leukocytosis. Hold on abx therapy for now. Shelly Payton MD PGY -2 continues to complain of severe 10/10 headache this AM.He has newly developed chills and is warm to touch. ROS: - Neurological examination: Limited EOM due to pain+. Normal sendory and motor function in all 4 extremities.Normal DTRs. Management: - LP study was normal except for 9 RBCs - Will order CRP and UDS - Will follow up on results of Urine analyisis and cultures - WIll perform Fundoscopy to look for signs od increased icp - WIll start Caffeine pills - Decrease dose of Dilaudid to 2.5mg Q2h for pain control as 3mg is causing the patient to sleep too much. Gerda Irizarry Internal Medcine PGY1 Attending Statement: I personally interviewed and examined Mr. Parra on for his admission evaluation. I confirmed the history and PE as noted above by Dr. Navarro, Dr. Payton, and Dr. Irizarry. I reviewed the data with the team and directed the plan. Carolina Craig MD molded grid and parts inspector 02/27/2015 [facility] ED Note - Provider ED Note - Provider Patient: MAURIZIO PARRA Age: 34 years Sex: Male : 78 Associated Diagnoses: None Author: Fer Barber Basic Information History source: Patient. History limitation: None. Additional information: Chief Complaint from Nursing Triage Note : Chief Complaint 02/26/15 19:27 Chief Complaint "It's worse, I was here last night". Reports here last noc for MORILLO and had LP done. "From my eyes to my back, everything hurts ". Reports pain worsened after getting home from ER visit at [place]. + blurry vision. Pt. went to [facility] this morning 02/25/15 12:18 Chief Complaint HERE FOR MORILLO THAT STARTED 3-4 DAYS AGO WIITH NAUSEA HAS HX OF 7 BRAIN SURGERIES AND HIS SHUNT WAS REMOVED . History of Present Illness 34 YO M with PMH of hydrocephalus and multiple brain surgeries who presents with two days of headache. Has chronic headaches, and this is similar in nature but worse in severity. Was seen yesterday with negative LP and CT head. Has PCP who manages pain with Valium and Oxycodone. This has been insufficient. Deneis f /c, recent illness, neck pain, COB, CP> Headache unchanged by position or activity. Review of Systems Constitutional symptoms: No fever, no chills, no weakness. Skin symptoms: No rash, no pruritus, no lesion. Eye symptoms: No recent vision problems, no pain, no discharge, no blurred vision. ENMT symptoms: No ear pain, no sore throat, no nasal congestion. Respiratory symptoms: No shortness of breath, no cough. Cardiovascular symptoms: No chest pain, no palpitations. Gastrointestinal symptoms: No abdominal pain, no nausea, no vomiting, no diarrhea. Genitourinary symptoms: No dysuria, no hematuria, no discharge. Musculoskeletal symptoms: No back pain, no Muscle pain, no Joint pain. Neurologic symptoms: Headache, no numbness, no tingling. Health Status Allergies: Allergic Reactions (Selected) No Known Allergies. Medications: Valium, oxycodone. Past Medical/ Family/ Social History Medical history h/o hydrocephalus s/p shunt and drain placements and removals. Social history: Tobacco - Denies Alcohol - Denies Other drugs - MJ, not today. Problem list: All Problems Anxiety / SNOMED CT 96240484 / Confirmed Hydrocephalus / SNOMED CT 413803007 / Confirmed Migraines / SNOMED CT 58502944 / Confirmed. Physical Examination Vital Signs Vital Signs 02/26/15 19:27 Temperature Route Oral Temperature Oral 98.1 DegF Heart Rate 68 bpm Resp. Rate 20 BRMIN Systolic BP 107 mmHg Diastolic BP 63 mmHg Oxygen Saturation 97 % Oxygen Therapy Room air . General: Alert, moderate distress. Skin: Warm, dry, pink, intact, no rash. Head: Normocephalic, atraumatic. Neck: Trachea midline, no tenderness, no JVD, no LAD. Eye: Pupils are equal, round and reactive to light, extraocular movements are intact, normal conjunctiva. Ears, nose, mouth and throat: Oral mucosa moist, no pharyngeal erythema or exudate. Cardiovascular: Regular rate and rhythm, No murmur, Normal peripheral perfusion , No edema. Respiratory: Lungs are clear to auscultation, respirations are non-labored, breath sounds are equal, Symmetrical chest wall expansion. Chest wall: No tenderness, No deformity. Musculoskeletal: Normal ROM, normal strength, no tenderness, no swelling, no deformity. Gastrointestinal: Soft, Nontender, Non distended, Normal bowel sounds, No organomegaly. Neurological: Alert and oriented to person, place, time, and situation, No focal neurological deficit observed, CN II-XII intact, normal sensory observed, normal motor observed, normal speech observed, normal coordination observed. Medical Decision Making Rationale: Pain acute on chronic. Will attempt pain control. Story atypical for spinal headache. Concern for IC abnormality or infection low.. Documents reviewed: Emergency department nurses' notes, emergency department records, prior records. Orders Launch Orders Laboratory: Type and Screen (Order): Stat, ST, 02/26/15 22:45, Blood Sedimentation rate (Order): STAT, ST, 02/26/15 22:45, Blood Basic Metabolic Profile (Order): STAT, 02/26/15 22:45, Blood, Nurse Collect CBC w/auto diff (Order): STAT, 02/26/15 22:45, Blood, Nurse Collect Patient Care: Peripheral IV Insertion (Order): 02/26/15 22:45 Pharmacy: hydromorphone (Order): 2 mg, IVPush, ONCE. Results review: Lab results : All Laboratory 02/26/15 23:31 I ABORH A POS 02/26/15 23:17 Sodium 141 mmol/L Potassium Hemolysis Chloride 105 mmol/L CO2 23 mmol/L Anion Gap 13 mmol/L Glucose 95 mg/dL BUN 8 mg/dL Creatinine 0.82 mg/dL LOW BUN/Creat Ratio 9.8 LOW GFR -Moldovan >90 mL/min/1.73m2 GFR Non -Moldovan >90 mL/min/1.73m2 Calcium 9.3 mg/dL Osmo (Calc) 290 mOsm/kg 3/cmm HI 6/cmm Hemoglobin 13.9 g/dL LOW Hematocrit 41.8 % MCV 92.9 FL MCH 30.8 PG MCHC 33.2 % 3/cmm MPV 8.4 FL RDW 14.5 % Gran % 79.4 % HI Lymph % 13.7 % LOW [place] % 6.0 % Eos % 0.4 % LOW Baso % 0.5 % 3/cmm HI 3/cmm 3/cmm HI 3/cmm 3/cmm NRBC Auto 0.0 /100WBC NA I ABORH A POS ABSC INT Negative Sed Rate 5 mm/hr . Notes: Appreciate hemolyzed potassium. Not required for presentation and patient refusing redraw. Otherwise, appreciate leukocytosis. Will plan for pain control admission.. Reexamination/ Reevaluation Interventions: PowerOrders Pharmacy: diphenhydramine (Order): 25 mg, IVPush, ONCE metoclopramide (Order): 10 mg, IVPush, ONCE ketorolac (Order): 30 mg, IVPush, ONCE . Notes: Headache persists.. Time: 02/27/15 02:09:00 . Interventions: [facility]ders Pharmacy: Valium (Order): 5 mg, IVPush, ONCE , [facility]ders Pharmacy: Zofran (Order): 4 mg, IVPush, ONCE , PowerOrders Patient Care: Urinalysis POC (Order): 02/27/15 02:13, ONCE . Notes: Spoke [facility] admitting team. Informed of patient course and status. Will take admission. Spoke with patient. Requesting more pain control and nausea control. Informed of lab results. Discussed plan to admit. Patient agreed with plan and verbalized understanding. . Time: 02/27/15 02:58:00 . Interventions: PowerOrders Pharmacy: Dilaudid (Order): 2 mg, IVPush, ONCE . Notes: Patient still in pain.. Time: 02/27/15 04:01:00 . Notes: Inpatient orders placed. ERNIE to admitting team. . Impression and Plan MORILLO (headache) (ICD9 784.0) Plan Condition: Stable. Disposition: Admit: to Inpatient Unit. Counseled: Patient, Regarding diagnosis, Regarding diagnostic results, Regarding treatment plan, Regarding prescription, Patient indicated understanding of instructions. Notes: Fer Barber MD, EM PGY-2 . Attending Attestation Teaching-Supervisory Addendum I participated in the following activities of this patient's care: the medical history, the physical exam, medical decision making. I personally performed: the medical history, the physical exam. The case was discussed with: the resident. Resident documentation: I agree with the resident's documentation. Attending signature: Severino Gray. Pt with a headache that is not able to go away with days worth of treatment. pt was seen here yesterday and had an LP done. He came back because headhace isn't going away. pt is requiring very high dose of opioids for headache. the amount of meds he is requiring is concerning so I feel like he needs to be admitted for further work up. Pt is currently sleeping in room 02/26/2015 [facility] CSF Studies CSF Protein 28.0 mg/dL 15.0 - 45.0 2014 [facility] GS No WBC's seen. No organisms seen. Due to insufficient volume, sensitivity of microbial culture may be compromised. 02/26/2015 [facility] CT Head w/o Cont [id number] CT Head w/o Cont [id number] Name: MAURIZIO PARRA CT Scan Accession Number Exam Exam Date/Time Ordering Physician [id number] CT Head w/o Cont 02/25/2015 15:09 CDT Rell Watson CPT code 50161 Reason For Exam (CT Head w/o Cont) headache, h/o hydrocephalus Report EXAMINATION: CT OF THE HEAD WITHOUT CONTRAST HISTORY: Headache COMPARISON: None TECHNIQUE: Examination performed without contrast. For point a mm axial images were obtained. FINDINGS: There is good villeda-white differentiation. The sulcal and gyral patterns are normal and abut the calvarium. The ventricles and subarachnoid spaces are normal. There is no evidence of hemorrhage or mass effect. The paranasal sinuses are well aerated without evidence of sinusitis. The calvarium is intact. The orbits are unremarkable. IMPRESSION: No evidence of acute intracranial pathology. THIS IS AN ELECTRONICALLY VERIFIED REPORT 02/25/2015 3:25 PM: Oscar Casillas M.D. Oscar Casillas M.D. GR:robert 03:24 PM 03:25 pm MARIAM Final Report Dictating Physician: Oscra Casillas ELECTRONIC SIGNATURE Signed: 02.25.2015 15:28 Signed by: Oscar Casillas Technologist: Heidi Mackay, RT(R)(CT) 02/25/2015 [facility] ED Note - Provider ED Note - Provider Patient: MAURIZIO PARRA Age: 34 years Sex: Male : 78 Associated Diagnoses: None Author: Parish Contreras Basic Information History source: Patient. Additional information: Chief Complaint from Nursing Triage Note : Chief Complaint 02/25/15 12:18 Chief Complaint HERE FOR MORILLO THAT STARTED 3- 4 DAYS AGO ANNE-MARIE MCKAY HAS HX OF 7 BRAIN SURGERIES AND HIS SHUNT WAS REMOVED . History of Present Illness 34 yo M presents with headache. Current headache X 4 days. Pain is located at bilateral retroorbital area and bifrontal, states this is the same headache he has been having ever since his shunt was removed. States mild worsening of blurry vision. States he has shunt placed for hydrocephalus, 7 operations that has to do with shunt placement/revision/removal. Shunt was taken out in 2012. Denies fever/ chills, n/v, neck pain/stiffness, Patient states he is on oxycodone 20mg, dilaudid 2 mg, that is prescribed by his PCP. Patient does not follow up with a neurosurgeon. Review of Systems Constitutional symptoms: Negative except as documented in HPI. Skin symptoms: Negative except as documented in HPI. Eye symptoms: Negative except as documented in HPI. ENMT symptoms: Negative except as documented in HPI. Respiratory symptoms: Negative except as documented in HPI. Cardiovascular symptoms: Negative except as documented in HPI. Gastrointestinal symptoms: Negative except as documented in HPI. Genitourinary symptoms: Negative except as documented in HPI. Musculoskeletal symptoms: Negative except as documented in HPI. Neurologic symptoms: Negative except as documented in HPI. Psychiatric symptoms: Negative except as documented in HPI. Health Status Allergies: Allergic Reactions (Selected) No Known Allergies. Past Medical/ Family/ Social History Medical history h/o hydrocephalus s/p shunt placement and removal. Surgical history: shunt placement/removal. Social history: Denies tobacco, etoh. + MJ. . Physical Examination Vital Signs Vital Signs 02/25/15 12:18 Temperature Route Oral Temperature Oral 98.2 DegF Heart Rate 74 bpm Resp. Rate 20 BRMIN Systolic BP 129 mmHg Diastolic BP 72 mmHg Oxygen Saturation 99 % Oxygen Therapy Room air . General: Alert, no acute distress. Skin: Warm, dry, pink. Head: Normocephalic, atraumatic. Eye: Pupils are equal, round and reactive to light, extraocular movements are intact, normal conjunctiva. Ears, nose, mouth and throat: Oral mucosa moist, no pharyngeal erythema or exudate. Cardiovascular: Regular rate and rhythm, No murmur, Normal peripheral perfusion , No edema. Respiratory: Lungs are clear to auscultation, respirations are non-labored, breath sounds are equal, Symmetrical chest wall expansion. Gastrointestinal: Soft, Nontender. Musculoskeletal: Normal ROM, normal strength, no swelling. Neurological: Alert and oriented to person, place, time, and situation, No focal neurological deficit observed, normal motor observed, normal speech observed, normal coordination observed, Neg cerebellar signs. Medical Decision Making Documents reviewed: Emergency department nurses' notes, prior records. Orders Launch Orders Patient Care: Peripheral IV Insertion (Order): 02/25/15 13:14 Radiology: CT Head w/o Cont [id number] (Order): Stat, 02/25/15 13:14, headache, h/o hydrocephalus, ED Location 20 , Launch Orders Pharmacy: Dilaudid (Order): 1 mg, IVPush, ONCE . Results review: Lab results : All Laboratory 02/25/15 19:17 CSF Appearance Clear CSF Xanthochromia Negative CSF WBC Count 1 /cmm (Modified) CSF RBC Count 9 /cmm HI CSF Protein 28.0 mg/dL CSF Glucose 66 mg/dL . Radiology results: Emergency physician interpretation: WNL, CT Head w/o Cont [id number] - 02/25/15 15:09 Impression: No evidence of acute intracranial pathology. THIS IS AN ELECTRONICALLY VERIFIED REPORT 02/25/2015 3:25 PM: Jaime Brower M.D.GR:robert D: :24 PMT: :[address] Head w/o cont IMPRESSION: No evidence of acute intracranial pathology. THIS IS AN ELECTRONICALLY VERIFIED REPORT 02/25/2015 3:25 PM: Jaime Brower M.D. GR:robert 03:24 PM T: :25 pm RIL Signature Line Final Report Reexamination/ Reevaluation Time: 02/25/15 15:00:00 . Interventions: Power[facility] Pharmacy: Dilaudid (Order): 1 mg, IVPush, ONCE . Notes: Patient states he gets 2mg Dilaudid, requesting another dose. ERNIE to Dr. Contreras at shift change. Pending CT Head and records from and [facility]. . Time: 02/25/15 15:36:00 . Interventions: [email or web address] Pharmacy: Benadryl (Order): 25 mg, IVPush, ONCE Compazine (Order): 10 mg, IVPush, ONCE Toradol (Order): 30 mg, IVPush, ONCE Sodium Chloride 0.9% (Normal Saline bolus) (Order): 1,000 mL, IVPB, ONCE . Time: 02/25/15 17:15:00 . Assessment: Patient states pain uncontrolled. Agrees to LP and was told will get dilaudid for pain control. - Iván Contreras. Interventions: [email or web address] Laboratory: CSF culture (Order): Collect Routine, 02/25/15 17:16, Cerebrospinal Fluid, Nurse Collect CSF protein (Order): STAT, 02/25/15 17:16, Cerebrospinal Fluid CSF Glucose (Order): STAT, 02/25/15 17:16, Cerebrospinal Fluid CSF cell count (Order): STAT, ST, 02/25/15 17:16, Cerebrospinal Fluid Patient Care: ED Supply Setup (Order): 02/25/15 17:16, Lidocaine 1% w/ epi 1:100,000 20 mL vial, Lumbar Puncture, Chlorhexidine, Spinal needle 20G 3-1/2" . Time: 02/25/15 20:18:00 . Vital signs results included from flowsheet : Vital Signs 02/25/15 18:59 Temperature Oral 97.6 DegF Heart Rate 64 bpm Resp. Rate 18 BRMIN Systolic BP 125 mmHg Diastolic BP 80 mmHg Mean Arterial Pressure 95 mmHg BP Site Right Arm Cuff Size Adult Regular Cuff Oxygen Saturation 96 % Assessment: Patient states pain resolved and wants to go home. Marii cazares phone number [phone] or [phone] d/w Dr. Strauss who agrees with this plan. Strict return precuations given. . Procedure Lumbar Puncture Time: 02/25/15 18:28:00 . Confirmed: Patient, procedure, and site correct. Consent: Patient, Has signed consent. Indication: Headache. Pre procedure exam: Circulation, motor, and sensory intact. Procedural sedation: None. Monitoring: Cardiac, blood pressure, continuous pulse oxymetry. Patient position: Lateral decubitus. Location: L4-L5. Preparation: Skin prepped with betadine, Local anesthesia: 8 ml 1% lidocaine injected locally. Technique: 20 gauge spinal needle inserted, Opening pressure 22 cm, Fluid return : clear. Post procedure exam: Circulation, motor, sensory examination intact. Patient tolerated: Well. Complications: None. Performed by: Resident, Dr. Iván Contreras. Total time: 30 minutes. Impression and Plan Episodic headache (ICD9 784.0) Plan Condition: Improved, Stable. Disposition: Discharged: ED Discharge(02/25/15 20:18:00, Home), time 02/25/15 20:18:00, to home. Patient was given the following educational materials: Follow up with: [facility] You were seen here today for headache. While you were here we gave you medications for your headache. Please call our neurology clinic for further evaluation. Please return to the emergency department if you develop worsening headache, fever > 100.4, persistent vomiting, blurry vision or any other concern. . Counseled: Patient, Regarding diagnosis, Regarding diagnostic results, Regarding treatment plan, Patient indicated understanding of instructions. Notes: Mayelin Watson PGY-3. Attending Attestation Teaching-Supervisory Addendum I participated in the following activities of this patient's care: the medical history, the physical exam, medical decision making. I personally performed: supervision of the patient's care, the medical history, the physical exam, the medical decision making. The case was discussed with: the resident: Rell Watson . Procedures: I directly supervised the entire procedure, type: lumbar puncture. Resident documentation: I agree with the resident's documentation. Results interpretation: I agree with the study interpretation in this patient's care. 8mL clear fluid was obtained, opening pressure was 21cm, pt tolerated procedure. Sent to lab to eval for xanthocrhomia / leukocytosis: negative. Pain controlled, will dc to f/u with PCP in several days , advised further f/u with Neurology or Neurosurgery advisable. Attending signature: Arian Guzmán. Attending Medical Decision Making Orders Launch Orders Diagnosis: *Lumbar Puncture, Diagnostic (Prof [id number]) (Order): 1, 02/25/15 18:26, Episodic headache, 02/25/15 18:26 , Launch Orders Diagnosis: *Level 4 ED Visit (Prof [id number]) (Order): 1, 02/25/15 20:40, Episodic headache , 02/25/15 20:40 . 02/25/2015 [facility] Vital Signs Vital Sign Value Date Comments Source Systolic BP 121 mmHg 2015 [facility] Diastolic BP 74 mmHg 2015 [facility] Mean Arterial Pressure 90 mmHg 12/13/2015 [facility] Oxygen Therapy Room air </br>(12/12/15 11:08 PM) 12/13/2015 [facility] Oxygen Saturation 98 % 2015 [facility] Temperature Oral 98.1 [degF] 12/13/2015 [facility] Resp. Rate 18 BRMIN 2015 [facility] Heart Rate 82 bpm 12/13/2015 [facility] Systolic BP 118 mmHg 2015 [facility] Diastolic BP 73 mmHg 2015 [facility] Oxygen Saturation 97 % 2015 [facility] Oxygen Therapy Room air </br>(12/12/15 7:41 PM) 12/13/2015 [facility] Temperature Route Oral </br>(12/12/15 7:41 PM) 12/13/2015 [facility] Temperature Oral 97.9 [degF] 12/13/2015 [facility] Heart Rate 80 bpm 12/13/2015 [facility] Resp. Rate 18 BRMIN 2015 [facility] Heart Rate 55 bpm 03/01/2015 [facility] BP Site Left Arm </br>(03/01/15 8:21 AM) 03/01/2015 [facility] Systolic BP 124 mmHg 2014 [facility] Diastolic BP 53 mmHg 2014 [facility] Oxygen Saturation 97 % 2014 [facility] Oxygen Therapy Room air </br>(03/01/15 8:21 AM) 03/01/2015 [facility] Temperature Oral 98.0 [degF] 03/01/2015 [facility] Resp. Rate 18 BRMIN 2014 [facility] Mean Arterial Pressure 77 mmHg 03/01/2015 [facility] Temperature Oral 97.8 [degF] 03/01/2015 [facility] Systolic BP 128 mmHg 2014 [facility] Diastolic BP 70 mmHg 2014 [facility] Oxygen Saturation 97 % 2014 [facility] BP Site Left Arm </br>(03/01/15 4:39 AM) 03/01/2015 [facility] Oxygen Therapy Room air </br>(03/01/15 4:39 AM) 03/01/2015 [facility] Cuff Size Adult Long Cuff </br>(03/01/15 4:39 AM) 03/01/2015 [facility] Resp. Rate 20 BRMIN 2014 [facility] Heart Rate 60 bpm 03/01/2015 [facility] Oxygen Saturation 96 % 2014 [facility] Oxygen Therapy Room air </br>(02/28/15 11:41 PM) 03/01/2015 [facility] Resp. Rate 20 BRMIN 2014 [facility] Systolic BP 122 mmHg 2014 [facility] Diastolic BP 62 mmHg 2014 [facility] Heart Rate 65 bpm 03/01/2015 [facility] Temperature Oral 98.3 [degF] 03/01/2015 [facility] Cuff Size Adult Long Cuff </br>(02/28/15 11:41 PM) 03/01/2015 [facility] BP Site Right Arm </br>(02/28/15 11:41 PM) 03/01/2015 [facility] Cuff Size Adult Long Cuff </br>(02/28/15 7:47 PM) 03/01/2015 [facility] Mean Arterial Pressure 89 mmHg 02/28/2015 [facility] Mean Arterial Pressure 85 mmHg 02/28/2015 [facility] Mean Arterial Pressure 95 mmHg 02/27/2015 [facility] Heart Rate 92 bpm 02/27/2015 [facility] Oxygen Saturation 98 % 2014 [facility] Temperature Oral 98.7 [degF] 02/27/2015 [facility] Oxygen Therapy Room air </br>(02/27/15 2:01 PM) 02/27/2015 [facility] Resp. Rate 18 BRMIN 2014 [facility] BP Site Right Arm </br>(02/27/15 2:01 PM) 02/27/2015 [facility] Systolic BP 124 mmHg 2014 [facility] Diastolic BP 80 mmHg 2014 [facility] Oxygen Therapy Room air </br>(02/27/15 11:45 AM) 02/27/2015 [facility] Oxygen Saturation 95 % 2014 [facility] Oxygen Therapy Room air </br>(02/27/15 10:45 AM) 02/27/2015 [facility] Oxygen Saturation 95 % 2014 [facility] BP Site Right Arm </br>(02/27/15 8:39 AM) 02/27/2015 [facility] Cuff Size Adult Regular Cuff </br>(02/27/15 8:39 AM) 02/27/2015 [facility] Systolic BP 145 mmHg 2014 [facility] Diastolic BP 71 mmHg 2014 [facility] Mean Arterial Pressure 96 mmHg 02/27/2015 [facility] Resp. Rate 18 BRMIN 2014 [facility] Heart Rate 73 bpm 02/27/2015 [facility] Temperature Oral 97.5 [degF] 02/27/2015 [facility] Mean Arterial Pressure 86 mmHg 02/27/2015 [facility] Resp. Rate 18 BRMIN 2014 [facility] Heart Rate 57 bpm 02/27/2015 [facility] Systolic BP 123 mmHg 2014 [facility] Diastolic BP 67 mmHg 2014 [facility] Temperature Route Oral </br>(02/26/15 9:41 PM) 02/27/2015 [facility] Temperature Oral 98.0 [degF] 02/27/2015 [facility] Temperature Route Oral </br>(02/26/15 7:27 PM) 02/27/2015 [facility] BP Site Right Arm </br>(02/25/15 6:59 PM) 02/25/2015 [facility] Mean Arterial Pressure 95 mmHg 02/25/2015 [facility] Cuff Size Adult Regular Cuff </br>(02/25/15 6:59 PM) 02/25/2015 [facility] Temperature Oral 97.6 [degF] 02/25/2015 [facility] Resp. Rate 18 BRMIN 2014 [facility] Heart Rate 64 bpm 02/25/2015 [facility] Systolic BP 125 mmHg 2014 [facility] Diastolic BP 80 mmHg 2014 [facility] Oxygen Saturation 96 % 2014 [facility] Systolic BP 129 mmHg 2014 [facility] Diastolic BP 72 mmHg 2014 [facility] Oxygen Therapy Room air </br>(02/25/15 12:18 PM) 02/25/2015 [facility] Oxygen Saturation 99 % 2014 [facility] Temperature Oral 98.2 [degF] 02/25/2015 [facility] Resp. Rate 20 BRMIN 2014 [facility] Heart Rate 74 bpm 02/25/2015 [facility] Temperature Route Oral </br>(02/25/15 12:18 PM) 02/25/2015 [facility] Encounters Location Location Details Encounter Type Encounter Number Reason For Visit Attending Provider ADM Date DC Date Status Source [facility] CD:[id number] Emergency [id number] RICHARDDAX MOJICA 07/04/2012 Active [facility] CD:350427 Emergency [id number] KOLTON REESELIN 07/06/2012 07/06/2012 Active [facility] CD:573467 Emergency [id number] Jamil Carlitos 07/28/2012 Active [facility] CD:889475 Emergency [id number] RICHARD MOJICA 08/05/2012 Active [facility] CD:478894 Emergency [id number] RICHARD MOJICA 08/09/2012 Active [facility] CD:233656 Emergency [id number] Efrain Marilynnshwetha 12/03/2012 12/03/2012 [facility] CD:893529 Emergency [id number] Efrain Katshwetha 01/30/2013 01/30/2013 [facility] CD:806706 Emergency [id number] Osama Santino 01/30/2013 01/31/2013 Active [facility] CD:594301 Emergency [id number] Efrain Subramanianasani 03/05/2013 03/05/2013 Active [facility] CD:121171 Emergency [id number] SAMUEL LINDSAYGENESIS 03/06/2013 Active [facility]. [facility] CD:445161 Emergency [id number] Oscar Santino 03/07/2013 03/07/2013 Active [facility] CD:236308 Emergency [id number] KOLTON PETE 03/12/2013 03/12/2013 Active [facility]. [facility] CD:826570 Emergency [id number] Efrain Ortiz 03/12/2013 03/12/2013 [facility] CD:821686 Emergency [id number] Samuel Sabrina 03/13/2013 03/13/2013 [facility] CD:792484 Emergency [id number] Emir Oliva 03/18/2013 03/18/2013 [facility] CD:022489 Emergency [id number] Rafal Queen 2013 2013 [facility] CD:616066 Emergency [id number] Oscar De 05/06/2013 05/06/2013 Active [facility] CD:548352 Emergency [id number] Parviz Pinedo 05/06/2013 05/06/2013 Active [facility] CD:756463 Emergency [id number] Samuel Dyre 05/24/2013 Active [facility] CD:944440 Clinic ( Outpatient) [id number] Enrrique Baron 05/26/2013 Active [facility] CD:606649 Clinic ( Outpatient) [id number] Enrrique Baron 05/27/2013 Active [facility] CD:201912 Emergency [id number] Samuel Bennett 05/29/2013 05/29/2013 [facility] CD:437298 Emergency [id number] Oscar De 06/07/2013 06/07/2013 Active [facility] CD:183519 Emergency [id number] Richard Forensic Psychiatrist 03/01/2014 Active [facility] [employer] [facility] Emergency [id number] Enrrique Baron 03/01/2014 03/03/2014 [facility] CD:[id number] Clinic ( Outpatient) [id number] Demetris Kroen 03/03/2014 Active [facility] [id number] Demetris Kroen 03/03/2014 03/04/2014 [facility] [id number] Demetris Kroen 03/31/2014 04/01/2014 [facility] CD:007960 Emergency [id number] SAMUEL DANIEL 04/13/2014 Active [facility] CD:095437 Emergency [id number] DENISE MORELAND 04/18/2014 Active [facility] CD:[id number] Clinic ( Outpatient) [id number] Demetris Kroen 04/27/2014 Active [facility] [id number] Demetris Kroen 04/27/2014 04/28/2014 [facility] CD:[id number] Clinic ( Outpatient) [id number] Demetris Kroen 04/28/2014 Active [facility] CD:[id number] Clinic ( Outpatient) [id number] Demetris Kroen 05/11/2014 Active [facility] [id number] Demetris Kroen 05/11/2014 05/12/2014 [facility] CD:569460 Emergency [id number] Dereck Adebayo 06/29/2014 06/29/2014 Active [facility] CD:847566 Emergency [id number] Richard Montes 06/30/2014 Active [facility] Cancel/No Show [id number] Demetris Hernandez 07/14/2014 07/12/2014 [facility] CD:399024 Emergency [id number] Dereck Fiore 07/26/2014 07/26/2014 Active [facility] CD:740916 Emergency [id number] Cosme Gaitan 09/30/2014 09/30/2014 Active [facility] CD:229316 Emergency [id number] Rafal Williambry 10/05/2014 10/05/2014 Active [facility] CD:951091 Emergency [id number] Dereck Fiore 10/06/2014 10/06/2014 Active [facility] CD:602931 Emergency [id number] Oscar De 11/18/2014 11/18/2014 Active [facility] CD:213318 Emergency [id number] Cruzito Tierney 12/26/2014 12/26/2014 Active [facility] CD:973450 Emergency [id number] Rafla Queen 12/28/2014 12/28/2014 Active [facility] Emergency [id number] Samson Gamal 02/25/2015 02/26/2015 [facility] Emergency [id number] Ronny Monroe 02/27/2015 02/27/2015 [facility] Inpatient Admission [id number] Carolina Kiara 05/201503/01/2015 [facility] Emergency [id number] Dena Wheatley 12/13/2015 12/13/2015 [facility] CD:025846 Inpatient [id number] Easton Houston 07/31/2016 [facility] [employer] Procedures Procedure Code Date Perfomer Comments Source No data available for this section [facility] Plan of Care Social History Assessment and Plan Assessment and Plan Date Source Title:ED Discharge Instructions Author:Slime New Date:12/12/[address] [address] Emergency Department [phone] Emergency Department Discharge Instructions Name : MAURIZIO PARRA Visit Date: 12/12/2015 7:41 PM Reason For Visit: HEADACHE Comment: Emergency Department Care Providers: Thank you for the opportunity to provide your emergency medical care. It is important that you understand that emergency medical services are not a substitute for complete medical care. For your protection, make arrangements to see the doctor indicated below. All smokers are encouraged to stop smoking. If you would like help, talk to your doctor or call [facility] [place] [facility] at 0-433-XBWUNOW ([phone]- 5924). If you have thoughts about committing suicide or otherwise hurting yourself, please call 911 or call Crisis Line at . If your primary care provider is a [facility] physician or you would like to establish care at [facility] please call [phone] to schedule an appointment. If you are a new patient you may have to wait up to 60 days for a scheduled appointment. If you need to establish care sooner, you may want to look for other options. PAYMENT GUIDELINES FOR [facility] PATIENTS: [facility] now requires all self-pay and partial C discount patients to make a down payment before receiving non-emergency care. In most cases, your down payment will be 25 percent of your charges. If you currently receive a 100% [facility] discount , these new guidelines do not apply to you. We accept khan, check, Visa and MasterCard. If you are a self-pay patient and would like to discuss discounted services or Medicaid, please contact [facility] at [phone]. Remember: at the time of your appointment, you must present a photo ID as well as your insurance card or the required down payment, or your appointment will be rescheduled for another day. If you have commercial insurance and C is not on your list of providers, please call your insurance company and make your follow-up appointment with your PCP or a provider who takes your insurance. FIDEL MAURIZIO BARAJAS has been given the following list of patient education materials, prescriptions and follow-up instructions: Follow-up Instructions: With: Address: When: [facility] [address] [place] [address] [place] [address] Work (1) With: Address: When: Follow up with primary care provider Comments: Take tylenol or ibuprofen as needed for pain. Follow up with your primary care doctor and Neurosurgery clinic. Return for any concerns. Patient Education Materials : Financial Assistance [facility] (No Appointment Necessary) Fourth floor, off the clinic elevators (former patient registration) [address] [place] [address] Thursday/Thursday 7:30 am - 6:00 pm Thursday, and Thursday 7:30 am - 5:00 pm Prescription leaflets: Prescriptions : No Prescriptions given this visit Comment: Your Upcoming Appointments/Edith proximas citas Please bring all home medications to every visit with us at [facility]. Your safety and education around medications is our goal. (Prescription , non prescription and herbal supplements) Date Time Location Appointment Type Provider No Appointments found Future Orders Placed Today/ Ordenes de Doctor Order Name Details Ordering Provider Clinic Consult Neurosurgery HH Requested Start Date/Time: 12/12/15 22:55:00 Reason For Exam: headache, hydrocephalus Clinically Significant MRI or CT Scan: Yes RTC Appointment Request: 1 Week Future Order: Yes Requesting Attending Physician: Dena Wheatley Stop Date/Time: 12/12/15 22:55:00 Joe Tubbs Inpatient Follow Up Neurosurgery Clinic Requested Start Date/Time: 12/12/15 23: 03:00 Reason For Exam: history of hydrocephalus with slight enlargement of ventricles on CT scan RTC Appointment Request: 1 Week Callback Requested Provider: Sandip Riggins Special Instructions: Patient requested that his fianceSwapna be contacted at the number provided to make the appointment as he has memory difficulties Future Order: Yes Stop Date/Time: 12/12/15 23:03:00 Michelle Balderas Major procedures/tests performed during your ED visit: Laboratory Orders No laboratory orders were placed. Radiology Orders Name Status Details CT Head w/o Cont [id number] Completed Stat, 12/12/15 20:31:00, headache, h/o hydrocephalus, ED Location 13 [ ] (If checked) Do not drive or operate heavy machinery for 12 hours. The exam and treatment that you received today has been provided on an emergency basis only. If your problem worsens or new symptoms appear, contact your doctor or return to this facility for further care. YOU MUST MAKE A FOLLOW-UP APPOINTMENT IN THE CLINIC LISTED ABOVE TO RECEIVE YOUR TEST RESULTS! Take Charge of Your Health with [facility] Sign up today for [facility] for access to your health records 09/02. [employer] allows you to: Request an appointment Check your lab results Communicate with your providers and care team See provider notes from your visit View immunization records View current medication Sign up Today! Ask your healthcare provider or a [facility] associate for help, or email [email or web address] MAURIZIO PARRA, have received the attached patient education materials/instructions and have verbalized understanding/Yo recibi educacion, materiales instrucciones de paciente y se me a explicado verbalmente para mi propia comprension: Patient/Guardian Signature Date Firma de paciente/guardian Fecha Witness Signature Date Firma de Testigo Fecha [facility] Title:Neurosurgery consultation Author:Michelle Balderas Date:12/12/15 Patient: MAURIZIO PARRA Age: 35 years Sex: Male : 78 Associated Diagnoses: None Author: Michelle Balderas History of Present Illness Maurizio Parra is a 35 yo M with a PMHx significant for hydrocephalus s/p shunt removal in 2012. Patient presents to ED today with headache. Patient states that he has had about seven brain surgeries d/t hydrocephalus, the first around 2007 when he had a cerebral drain placed. He had a shunt placed at by Dr. Amaya with several subsequent revisions and a replacement. In 2012, the patient suffered an injury at work in which a heavy object was dropped on his head which resulted in shunt damage and the shunt was eventually removed at [facility] by Dr. Tao. Since that time, the patient has had chronic headaches, bilaterally retro-orbital. The headaches have become worse over the past 5-6 days. Denies fevers, chills or nuchal rigidity. Patient reports nausea and vomiting. Patient denies any recent change to his vision, although states that he just got new glasses yesterday. Patient was seen at [facility] ED in 2014 for similar complaints at which time patient was admitted with lumbar puncture was WNL and brain CT and MRI were obtained which did not demonstrate any acute intracranial process. CT Head was obtained today which demonstrated slight enlargement of 3rd ventricle and frontal horns of lateral ventricle. Review of Systems Constitutional: Negative except as documented in history of present illness. Eye: Negative except as documented in history of present illness. Ear/Nose/Mouth/Throat: Negative except as documented in history of present illness. Respiratory: Negative except as documented in history of present illness. Cardiovascular: Negative except as documented in history of present illness. Gastrointestinal: Negative except as documented in history of present illness. Genitourinary: Negative except as documented in history of present illness. Hematology/Lymphatics: Negative except as documented in history of present illness. Endocrine: Negative except as documented in history of present illness. Immunologic: Negative except as documented in history of present illness. Musculoskeletal: Negative except as documented in history of present illness. Integumentary: Negative except as documented in history of present illness. Neurologic: Negative except as documented in history of present illness. Psychiatric: Negative except as documented in history of present illness. Histories Past Medical History: Hydrocephalus, migraines, GERD Family History: Denies any significant FHx Procedure history: MRSA debridement of R axilla and L thigh "7 Cerebral Surgeries" - 4 at , 3 at [facility] - unsure of dates and exact procedures but states had a cerebral drain placed, a shunt placement, a shunt revision, and a shunt replacement and a shunt removal Social History Denies alcohol, tobacco and drug use. Physical Examination VS/Measurements Vital Signs 12/12/15 19:41 Temperature Route Oral Temperature Oral 97.9 DegF Heart Rate 80 bpm Resp. Rate 18 BRMIN Systolic BP 118 mmHg Diastolic BP 73 mmHg Oxygen Saturation 97 % Oxygen Therapy Room air Respiratory: Lungs are clear to auscultation, Respirations are non-labored, Breath sounds are equal, Symmetrical chest wall expansion. General: Alert and oriented, No acute distress. Cognition and Speech: Oriented, Speech clear and coherent. Eye: Pupils are equal, round and reactive to light, Extraocular movements are intact, Normal conjunctiva, Vision unchanged. HENT: Tympanic membranes are clear, Normal hearing, Oral mucosa is moist, No pharyngeal erythema, scars over right frontemporal scalp. Neck: Supple. Cardiovascular: Normal rate, Regular rhythm, No murmur, No gallop, Good pulses equal in all extremities, Normal peripheral perfusion. Musculoskeletal Normal range of motion. Normal strength. No tenderness. No swelling. No deformity. Normal gait. Integumentary: Warm, Dry, [place]. Neurologic: Alert, Oriented, Normal sensory, Normal motor function, No focal defects, Cranial Nerves II-XII are grossly intact. Psychiatric: Cooperative, Appropriate mood & affect. Review / Management CT Head w/o Cont [id number] - 02/25/15 15:09 Impression: No evidence of acute intracranial pathology. THIS IS AN ELECTRONICALLY VERIFIED REPORT 02/25/2015 3:25 PM: Oscar Casillas M.D. Oscar Casillas M.D.GR:robert 03:24 PMT: 02/25/201503:25 pmRI MRI Brain w/o Cont [id number] - 03/01/15 09:26 Impression: 1. Stable dilation of the lateral ventricles and 3rd ventricle as compared to head CT of 02/25/2015. Given associated thinning of the corpus callosum, findings suggest chronicity. Differential considerations include aqueductus stenosis, likely from web or adhesion.2. Post surgical changes of right frontotemporal craniotomy and old right frontal ventriculostomy catheter tract.Dr. Faisal CarrizalesDr. Faisal Carrizales and the staff radiologist have jointly reviewed and interpreted the above examination CT Head w/o Cont [id number] - 12/12/15 20:49 Impression: 1. Enlargement of the ventricles, with slight interval enlargement of the third ventricle as well as the frontal horns of the lateral ventricles compared to the prior examination.2. No acute intracranial hemorrhage.3. Hypodensity in the right frontal region, stable.4. No depressed calvarial fracture. Portion of a prior shunt is visualized within the soft tissues of the right scalp, stable. THIS IS AN ELECTRONICALLY VERIFIED REPORT 12/12/2015 9:33 PM: Norma Marina M.D. Norma Marina M.D.TB:alexandria 09:29 PMT: 09:33 pmBO Impression and Plan Maurizio Parra is a 35 yo M with a PMHx significant for hydrocephalus s/p shunt removal in 2012 with slight interval enlargement of ventricles. -no need for acute neurosurgical intervention or admission at this time -request made for patient to follow up with Dr. Riggins in Neurosurgery Clinic Discussed case with Dr. Riggins. Michelle Balderas MD Emergency Medicine, PGY-1 Addendum Neurosurgery attending note: by Gilson As above. I reviewed the imaging studies and discussed with the resident. CT scan is , Sandip W unchanged from previous scan in 2014. Patient's ventricles are slightly larger than his on December 12, underlying edema but there is no evidence of active hydrocephalus. Suggested that the 2015 15:00 patient follow-up in the neurosurgery clinic for further evaluation. Possible lumbar puncture to measure opening pressure would be appropriate. [facility] Title:Headache *ED Author:Joe Tubbs Date:12/12/15 Impression and Plan Aching headache ([id number]) Hydrocephalus ([id number] G91) Plan Condition: Improved, Stable. Patient was given the following educational materials: Financial Assistance ( Custom). Follow up with: Follow up with primary care provider Take tylenol or ibuprofen as needed for pain. Follow up with your primary care doctor and Neurosurgery clinic. Return for any concerns. ; ; [facility]. Counseled: Patient, Regarding diagnosis, Regarding diagnostic results, Regarding treatment plan, Patient indicated understanding of instructions. Notes: Seen with Dr Wheatley. [facility] Title:Admission H&P * Author:Bianca Navarro Date:02/27/15 Patient: MAURIZIO PARRA Age: 34 years Sex: Male : 78 Associated Diagnoses: None Author: Bianca Navarro Chief Complaint 02/26/15 19:27 "It's worse, I was here last night". Reports here last noc for MORILLO and had LP done. "From my eyes to my back, everything hurts". Reports pain worsened after getting home from ER visit at [place]. + blurry vision. Pt. went to [facility] this morning History of Present Illness Mr. Parra is a 34 y/o male with past medical history significant for Hydrocephalus since 2006, anxiety, and history of polysubstance abuse. He presented to the ED today with MORILLO, he was also seen in the ED yesterday for MORILLO. MORILLO started Thursday, he woke up with it. It is located retro-orbital b/l and radiates down his neck and his back to his waistline. The pain started as retro- ortibal and didn't start to radiate until he received the Lumbar Puncture in ED yesterday. It is a 10/10 and throbbing in nature. It has been constant since onset. It is worse with bending forward, coughing, laughing, sneezing, and bearing down. It is better when he lays down and turns the lights off. It is associated with photosensitivity, neck stiffness, nausea, llightheadedness, dizziness, presyncope, blurry vision, double vision, ocular pain with eye movement. He denies fever/chills, vomiting, diarrhea, loss of bowel/bladder control, syncope. He reports similar episodes in the past, he averages 1-2 episodes per month but never this severe. His previous episodes are a 6-7/10. He reports a constant headache at baseline that doesn't require pain medication if it is Review of Systems ROS positive for chronic tingling in b/l hands, cough producing clear phlegm, headache, nausea, blurry/double vision, lightheadedness, dizziness, neack pain, eye pain, back pain, photosynsitivity, otherwise negative. Health Status Allergies: Allergic Reactions (Selected) No Known Allergies Current medications: Medications (10) Active Scheduled: (10) diazepam , PYXIS, ONCE diazepam 10mg/2ml inj 5 mg 1 mL, IVPush, ONCE diphenhydrAMINE inj 50 mg/ml 25 mg 0.5 mL, IVPush, ONCE HYDROmorphone 2 mg/ml inj 2 mg 1 mL, IVPush, ONCE ketorolac 30mg/1ml inj 30 mg 1 mL, IVPush, ONCE metoclopramide 10 mg/2 ml inj 10 mg 2 mL, IVPush, ONCE ondansetron , PYXIS, ONCE ondansetron 4 mg/2 ml inj 4 mg 2 mL, IVPush, ONCE sodium chloride , PYXIS, ONCE sodium chloride , PYXIS, ONCE Continuous: (0) PRN: (0) Problem list: All Problems Anxiety / SNOMED CT 97601929 / Confirmed Hydrocephalus / SNOMED CT 224857351 / Confirmed Migraines / SNOMED CT 31493789 / Confirmed Histories Past Medical History: All Problems Anxiety / SNOMED CT 20474998 / Confirmed Hydrocephalus / SNOMED CT 170722005 / Confirmed Migraines / SNOMED CT 89832984 / Confirmed Procedure history: No active procedure history items have been selected or recorded. Past Surgical History: MRSA debridement of R axilla and L thigh "7 Cerebral Surgeries" - 4 at , 3 at [facility] - unsure of dates and exact procedures but states had a cerebral drain placed, a shunt placment, a shunt revision, and a shunt replacment. Family History: Sister with fibromyalgia Mother, Father, and 3 Brothers living and healthy with no known medical conditions Social History: Single, has 1 son unemployed Smokes 1 cigar daily, former smoker of 1/2 ppd x 5 years quit in 2013. Smokes marijuana daily Denies Alcohol Denies illicits Physical Examination VS/Measurements Vital Signs 02/26/15 21:41 Temperature Route Oral Temperature Oral 98.0 DegF Heart Rate 79 bpm Resp. Rate 20 BRMIN Systolic BP 120 mmHg Diastolic BP 56 mmHg LOW Oxygen Saturation 100 % Oxygen Therapy Room air 02/26/15 19:27 Temperature Route Oral Temperature Oral 98.1 DegF Heart Rate 68 bpm Resp. Rate 20 BRMIN Systolic BP 107 mmHg Diastolic BP 63 mmHg Oxygen Saturation 97 % Oxygen Therapy Room air General: Alert, no acute distress. Skin: Warm, dry, pink. Head: Normocephalic, atraumatic. Eye: Pupils are equal, extraocular movements are intact, normal conjunctiva. Cardiovascular: Regular rate and rhythm, No murmur, Normal peripheral perfusion , No edema. Respiratory: Lungs are clear to auscultation, respirations are non-labored, breath sounds are equal, Symmetrical chest wall expansion. Gastrointestinal: Soft, Nontender, non distended, bowel sounds present Musculoskeletal: Normal ROM, normal strength, Extremities: no clubbing, cyanosis, edema Neurological: Alert and oriented to person, place, time, and situation, No focal neurological deficit observed, normal motor observed, normal speech observed. Impression and Plan Headache -differential includes: rebound MORILLO/opioid withdrawal, Hydrocephalus, Intractable MORILLO vs Migraine -If pain continues consider Neuro Consult and MRI brain vs Repeat Lumbar Puncture -On previous ED visit on 02/25/15: Given dilaudid as requested with partial relief, CT here was WNL, records from unenlightening. Attempted Compazine cocktail, 30 minutes later pt states no relief. Performed LP ~8mL clear fluid was obtained, opening pressure was ~21cm, normal except RBC: 9. CSF culture was neg. Pain controlled, He was discharged to f/u with PCP in several days, advised further f/u with Neurology or Neurosurgery. -Dilaudid 3 mg q 3 h prn headache Leukocytosis -UA -Chest X ray -sputum culture -monitor CBC/BMP Anxiety -continue home dose Vallium 10 mg q d Bianca Navarro PGY-1 Internal Medicine Addendum - Requesting outside records from and [facility] for Discharge summaries, med recs, and by imaging. Bianca Navarro on 27 February 2015 04:11 Addendum Agree with above assessment and plan. In brief, Mr Parra is a 34 yo male with past by Tata , medical history significant Hydrocephalus since 2006, anxiety, and history of Shelly L on polysubstance abuse presenting with intractable headache. Of note , pt was seen in ED 02/25/15 when LP was performed and CT head negative. Pt states headache is a chronic issue, 2014 06:43 occuring when pt wakes up, associated with nausea, photophobia, blurry vison, mostly pre-frontal, non radiating. He does admit to narcotic dependence in the past. He is being seen by new PCP, Dr. 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 he was switched from dilaudid to oxycodone within the past month and states MORILLO has been more recurrent since then. In ED, pt has had multiple doses of dilaudid and toradol, which pt states has helped alleviate his MORILLO breifly. Labs significant for leukocytosis. ROS: +productive cough (clear sputum) PE: Afebrile. Mild distress 2/2 MORILLO/Pain. RRR. CTAB. Abdo soft/NT/ND +BS. No edema BLE. PERRLA. ASSESSMENT: Intractable MORILLO 2/2 rebound morillo from opiod withdrawal, MORILLO vs migraine, NPH?, Leukocytosis, Anxiety PLAN: CT head and LP negative on 02/25/15. Pt with chronic headaches. Will attempt pain control with dilaudid 3 mg q2H (pt is narcotic dependent, decreased interval from q3H to q2H). If pain persists, primary team to consider neuro consult vs repeat LP vs MRI brain. Will request records from and [facility] for further look into hydrocephalus and associated procedures. Will order U/A, CXR and sputum culture as pt with productive cough + leukocytosis. Hold on abx therapy for now. Shelly Payton MD PGY -2 Addendum continues to complain of severe 10/10 headache this AM.He has newly developed by Edie aguila and is warm to touch. , Gerda ROS: B on - Neurological examination: Limited EOM due to pain+. Normal sendory and motor function in February all 4 extremities.Normal DTRs. 2014 12:26 Management: - LP study was normal except for 9 RBCs - Will order CRP and UDS - Will follow up on results of Urine analyisis and cultures - WIll perform Fundoscopy to look for signs od increased icp - WIll start Caffeine pills - Decrease dose of Dilaudid to 2.5mg Q2h for pain control as 3mg is causing the patient to sleep too much. Gerda Irizarry Internal Medcine PGY1 Addendum Attending Statement: I personally interviewed and examined Mr. Parra on 02/27/15 for his by Kiara , admission evaluation. I confirmed the history and PE as noted above by Dr. Navarro, Dr. Carolina Payton, and Dr. Irizarry. I reviewed the data with the team and directed the plan. 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 Disposition: Admit: to Inpatient Unit. Counseled: Patient, Regarding diagnosis, Regarding diagnostic results, Regarding treatment plan, Regarding prescription, Patient indicated understanding of instructions. Notes: Fer Barber MD, EM PGY-2 . [facility] Title:Inpatient Clinical Summary Author:Rosa Casey Date:03/01/15 [facility] Patient Discharge Instructions Visit Information/Informacion de Visita Name/Nombre:MAURIZIO PARRA Date of /Fecha de Nacimiento: 1980 12:00 AM Current Date/Time/Fecha/Hora Actual: 03/01/15 13:51:39 Physicians/Medicos Clinic Provider/Proveedor de Clinica: Resident Provider: Bianca Navarro Attending Provider: Carolina Craig Discharge Diagnosis/Diagnstico al ser dado de david: Analgesic rebound headache ; Chronic migraine without aura; Headache, worsening; Hydrocephalus; Post lumbar puncture headache The [facility] would like to thank you for allowing us to assist you with your healthcare needs. The following includes patient education materials and information regarding your injury/illness. [facility] quisieran agradecerle por permitirnos ayudarlo con edith necesidades sobre franco cuidado de shai. A continuacin incluimos materiales para la educacin al paciente e informacin sobre franco nick/enfermedad. Discharge Information Discharge Vitals: No Language Spoken: [place] Citizen Collateral Specialist Needed at Discharge: No Pain Present Upon Discharge: Yes Discharge STK Dx: No Discharge VTE Dx: No Location of Pain: Head Patient's Discharge Diet is: Regular Patient's Discharge Activity is: As Tolerated Patient Discharged to: Home Acute Nursing/Discharge Grid IV Removed: Yes Telemetry Removed: Yes Personal belongings returned: Yes Home medications retrieved from pharmacy: No Comment: n/a All outstanding immunizations administered: No Comment: n/a Valuables/Belongings ED Valuables and Belongings Grid Clothing (Valuables and Belongings) Clothing Valuables/Belongings Admission With patient Jewelry (Valuables and Belongings) Jewlery Valuables/Belongings Admission Denies Medications (Valuables and Belongings) Meds Valuables/Belongings Admission Denies Other Valuables (Valuables/Belongings) Other Valuables/Belongings Admission With patient Weapons Declared (Valuables/Belongings): No Medication List/Lista de Medicamentos Please take only the medications listed below/Por favor tome slo los medicamentos mostrados a continuacin Fill New Prescriptions: APAP/butalbital/caffeine (acetaminophen/butalbital/caffeine 300 mg-50 mg-40 mg oral capsule) 1 cap By Mouth Every 4 Hours as needed for Headache 1 Refills propranolol (propranolol 20 mg oral tablet) 40 mg By Mouth twice per day Please contact your primary care physician to discuss all medications. Por favor comunquese con franco doctor de cabecera para discutir todos edith medicamentos Additional Patient Information/Informacion Adicional del Paciente: Height: 5 ft 8 in Weight: 160 lb 7 oz Blood Pressure: 124/53 mmHg Future Orders Placed Today/Ordenes de Doctor If you haven't been contacted for an appointment within two weeks, please call for [facility] or for [place]. Por favor llame al [facility] o [place] , en chidi no lo hayan llamado dentro de dos semanas para darle oracio ammon. Your Upcoming Appointments/Edith proximas citas Please bring all home medications to every visit with us at [facility]. Your safety and education around medications is our goal. (Prescription , non prescription and herbal supplements) Date Time Location Appointment Type Provider No Appointments found MAURIZIO PARRA has been given the following list of follow-up instructions, prescriptions, and patient education materials/ se le morillo dado la siguiente lista de instrucciones de seguimiento, recetas y materiales de educaci n al paciente: Patient Follow-up Information/Informacion de seguimiento del paciente Prescription leaflets, if any, will display below/ Si hay algunas recetas, se mostrarn a continuacin acetaminophen, butalbital, and caffeine (a SEET a MIN oh fen, bue GISELL bi gisell, and KAF een) Alagesic, Anolor 300, Esgic, Fioricet, Margesic, Medigesic, Orbivan, Repan What is the most important information I should know about acetaminophen, butalbital, and caffeine? You should not use this medicine if you have porphyria, or if you have recently used alcohol, sedatives, tranquilizers, or other narcotic medications. Do not use this medicine if you have taken an MAO inhibitor in the past 14 days. A dangerous drug interaction could occur. MAO inhibitors include isocarboxazid, linezolid, phenelzine, rasagiline, selegiline, and tranylcypromine. Do not take more of this medication than is recommended. An overdose of acetaminophen can damage your liver or cause . Call your doctor at once if you have nausea, pain in your upper stomach, itching, loss of appetite, dark urine, francisco-colored stools, or jaundice (yellowing of your skin or eyes). In rare cases, acetaminophen may cause a severe skin reaction. Stop taking this medicine and call your doctor right away if you have skin redness or a rash that spreads and causes blistering and peeling. What is acetaminophen, butalbital, and caffeine? Acetaminophen is a pain reliever and fever divisional human resources director. Butalbital is in a group of drugs called barbiturates. It relaxes muscle contractions involved in a tension headache. Caffeine is a central nervous system stimulant. It relaxes muscle contractions in blood vessels to improve blood flow. Acetaminophen, butalbital, and caffeine is a combination medicine used to treat tension headaches that are caused by muscle contractions. Acetaminophen, butalbital, and caffeine may also be used for purposes not listed in this medication guide. What should I discuss with my healthcare provider before taking acetaminophen, butalbital, and caffeine? Do not use this medicine if you have taken an MAO inhibitor in the past 14 days. A dangerous drug interaction could occur. MAO inhibitors include isocarboxazid, linezolid, phenelzine, rasagiline, selegiline, and tranylcypromine. You should not use acetaminophen, butalbital, and caffeine if you are allergic to it, if you have porphyria, or if you have recently used alcohol, sedatives, tranquilizers, or other narcotic medications. To make sure acetaminophen, butalbital, and caffeine is safe for you, tell your doctor if you have: liver disease, cirrhosis, a history of alcoholism or drug addiction, or if you drink more than 3 alcoholic beverages per day; kidney disease; asthma, sleep apnea, or other breathing disorder; stomach ulcer or bleeding; a history of skin rash caused by any medication; a history of mental illness or suicidal thoughts; or if you use medicine to prevent blood clots. Butalbital may be habit forming. Never share this medicine with another person, especially someone with a history of drug abuse or addiction. Keep the medication in a place where others cannot get to it. FDA category C. It is not known whether acetaminophen, butalbital, and caffeine will harm an unborn baby. Tell your doctor if you are or plan to become while using this medication. This medicine can pass into breast milk and may harm a nursing baby. Tell your doctor if you are breast-feeding a baby. How should I take acetaminophen, butalbital, and caffeine? Follow all directions on your prescription label. Do not take more of this medication than recommended. An overdose can damage your liver or cause . Tell your doctor if the medicine seems to stop working as well in relieving your pain. Take the medicine with food or milk if it upsets your stomach. Store at room temperature away from moisture and heat. Keep track of the amount of medicine used from each new bottle. Butalbital is a drug of abuse and you should be aware if anyone is using your medicine improperly or without a prescription. What happens if I miss a dose? Since this medicine is used when needed, you may not be on a dosing schedule. If you are on a schedule, use the missed dose as soon as you remember. Skip the missed dose if it is almost time for your next scheduled dose. Do not use extra medicine to make up the missed dose. What happens if I overdose? Seek emergency medical attention or call the Poison Help line at 7-414-498- 3800. An overdose of acetaminophen, butalbital, and caffeine can be fatal. The first signs of an acetaminophen overdose include loss of appetite, nausea, vomiting, stomach pain, sweating, and confusion or weakness. Later symptoms may include pain in your upper stomach, dark urine, and yellowing of your skin or the whites of your eyes. Overdose symptoms may also include insomnia, restlessness, tremor, diarrhea, increased shallow breathing, uneven heartbeats, seizure (convulsions), or fainting. What should I avoid while taking acetaminophen, butalbital, and caffeine? This medication can cause side effects that may impair your thinking or reactions. Be careful if you drive or do anything that requires you to be awake and alert. Avoid drinking alcohol. It may increase your risk of liver damage while taking acetaminophen. Ask a doctor or pharmacist before using any other cold, allergy, pain, or sleep medication. Acetaminophen (sometimes abbreviated as APAP) is contained in many combination medicines. Taking certain products together can cause you to get too much acetaminophen which can lead to a fatal overdose. Check the label to see if a medicine contains acetaminophen or APAP. While you are taking this medication, avoid taking diet pills, caffeine pills, or other stimulants (such as ADHD medications) without your doctor's advice. What are the possible side effects of acetaminophen, butalbital, and caffeine? Get emergency medical help if you have any of these signs of an allergic reaction: hives; difficulty breathing; swelling of your face, lips, tongue, or throat. In rare cases, acetaminophen may cause a severe skin reaction that can be fatal. This could occur even if you have taken acetaminophen in the past and had no reaction. Stop taking this medicine and call your doctor right away if you have skin redness or a rash that spreads and causes blistering and peeling. If you have this type of reaction, you should never again take any medicine that contains acetaminophen. Stop using this medicine and call your doctor at once if you have: confusion, seizure (convulsions); shortness of breath; a light-headed feeling, like you might pass out; or nausea, upper stomach pain, itching, loss of appetite, dark urine, francisco- colored stools, jaundice (yellowing of the skin or eyes). Common side effects may include: drowsiness, dizziness; feeling anxious or restless; drunk feeling; or sleep problems (insomnia). This is not a complete list of side effects and others may occur. Call your doctor for medical advice about side effects. You may report side effects to FDA at 6-676-JVS-2862. What other drugs will affect acetaminophen, butalbital, and caffeine? Taking this medicine with other drugs that make you sleepy or slow your breathing can cause dangerous or life-threatening side effects. Ask your doctor before taking acetaminophen, butalbital, and caffeine with a sleeping pill, narcotic pain medicine, muscle relaxer, or medicine for anxiety, depression, or seizures. Other drugs may interact with acetaminophen, butalbital, and caffeine, including prescription and lvzq-ahg-jlgwlnk medicines, vitamins, and herbal products. Tell each of your health care providers about all medicines you use now and any medicine you start or stop using. Where can I get more information? Your pharmacist can provide more information about acetaminophen, butalbital, and caffeine. Remember, keep this and all other medicines out of the reach of children, never share your medicines with others, and use this medication only for the indication prescribed. Every effort has been made to ensure that the information provided by [facility]. ('[employer]') is accurate, up-to-date, and complete, but no guarantee is made to that effect. Drug information contained herein may be time sensitive. [facility] information has been compiled for use by healthcare practitioners and consumers in the [place] and therefore [facility] does not warrant that uses outside of the [place] are appropriate, unless specifically indicated otherwise. [employer] drug information does not endorse drugs, diagnose patients or recommend therapy. [employer] drug information is an informational resource designed to assist licensed healthcare practitioners in caring for their patients and/or to serve consumers viewing this service as a supplement to, and not a substitute for, the expertise, skill, knowledge and judgment of healthcare practitioners. The absence of a warning for a given drug or drug combination in no way should be construed to indicate that the drug or drug combination is safe, effective or appropriate for any given patient. [facility] does not assume any responsibility for any aspect of healthcare administered with the aid of information [facility] provides. The information contained herein is not intended to cover all possible uses, directions, precautions, warnings, drug interactions, allergic reactions, or adverse effects. If you have questions about the drugs you are taking, check with your doctor, nurse or pharmacist. Copyright 4995-4115 [employer]. Version: 6.01. Revision Date: 2012. propranolol (pro PRAN oh lol) Hemangeol, Inderal LA, Inderal XL, InnoPran XL What is the most important information I should know about propranolol? You should not use this medicine if you are allergic to propranolol, if you have asthma, very slow heart beats, or a serious heart condition such as 'sick sinus syndrome' or 'AV block' (unless you have a pacemaker). Babies who weigh less than 4.5 pounds should not be given Hemangeol oral liquid. What is propranolol? Propranolol is a beta-radha. Beta-blockers affect the heart and circulation ( blood flow through arteries and veins). Propranolol is used to treat tremors, angina (chest pain), hypertension (high blood pressure), heart rhythm disorders, and other heart or circulatory conditions. It is also used to treat or prevent heart attack, and to reduce the severity and frequency of migraine headaches. Hemangeol (propranolol oral liquid 4.28 milligrams) is given to infants who are at least 5 weeks old to treat a genetic condition called infantile hemangiomas. Hemangiomas are caused by blood vessels grouping together in an abnormal way. These blood vessels form benign (non-cancerous) growths that can develop into ulcers or red estrada on the skin. Hemangiomas can also cause more serious complications inside the body (in the liver, brain, or digestive system). Propranolol may also be used for purposes not listed in this medication guide. What should I discuss with my healthcare provider before taking propranolol? You should not use propranolol if you are allergic to it, or if you have: asthma; very slow heart beats that have caused you to faint; or a serious heart condition such as 'sick sinus syndrome' or 'AV block' ( unless you have a pacemaker). Babies who weigh less than 4.5 pounds should not be given Hemangeol oral liquid. To make sure propranolol is safe for you, tell your doctor if you have: a muscle disorder; bronchitis, emphysema, or other breathing disorders; low blood sugar, or diabetes (propranolol can make it harder for you to tell when you have low blood sugar); slow heartbeats, low blood pressure; congestive heart failure; depression; liver or kidney disease; a thyroid disorder; pheochromocytoma (tumor of the adrenal gland); or problems with circulation (such as Raynaud's syndrome). FDA category C. It is not known whether propranolol will harm an unborn baby. Tell your doctor if you are or plan to become while using this medicine. Propranolol can pass into breast milk and may harm a nursing baby. Tell your doctor if you are breast-feeding a baby. How should I take propranolol? Follow all directions on your prescription label. Your doctor may occasionally change your dose to make sure you get the best results. Do not take this medicine in larger or smaller amounts or for longer than recommended. Adults may take propranolol with or without food, but take it the same way each time. Take this medicine at the same time each day. Do not crush, chew, break, or open an extended-release capsule. Swallow it whole. Hemangeol must be given to an infant during or just after a feeding. Doses should be spaced at least 9 hours apart. Make sure your child gets fed regularly while taking this medicine. Tell your doctor when the child has any changes in weight. Hemangeol doses are based on weight in children, and any changes may affect your child's dose. Call your doctor if a child taking Hemangeol is sick with vomiting, or has any loss of appetite. Measure liquid medicine with the dosing syringe provided, or with a special dose -measuring spoon or medicine cup. If you do not have a dose-measuring device, ask your pharmacist for one. Do not shake Hemangeol liquid. Your blood pressure will need to be checked often. If you need surgery, tell the surgeon ahead of time that you are using propranolol. You may need to stop using the medicine for a short time. Do not skip doses or stop using propranolol suddenly. Stopping suddenly may make your condition worse. Follow your doctor's instructions about tapering your dose. This medicine can cause unusual results with certain medical tests. Tell any doctor who treats you that you are using propranolol. If you are being treated for high blood pressure, keep using this medicine even if you feel well. High blood pressure often has no symptoms. You may need to use blood pressure medicine for the rest of your life. Propranolol is only part of a complete program of treatment for hypertension that may also include diet, exercise, and weight control. Follow your diet, medication, and exercise routines very closely if you are being treated for hypertension. Store at room temperature away from moisture and heat. Do not allow liquid medicine to freeze. Throw away any unused Hemangeol 2 months after you first opened the bottle. What happens if I miss a dose? For regular (short-acting) propranolol: Take the missed dose as soon as you remember. Skip the missed dose if your next dose is less than 4 hours away. For extended-release propranolol (Inderal LA, InnoPran XL and others): Take the missed dose as soon as you remember. Skip the missed dose if your next dose is less than 8 hours away. Do not take extra medicine to make up the missed dose. What happens if I overdose? Seek emergency medical attention or call the Poison Help line at . Overdose symptoms may include slow or uneven heartbeats, dizziness, weakness, or fainting. What should I avoid while taking propranolol? Avoid drinking alcohol. It may increase your blood levels of propranolol. Avoid getting up too fast from a sitting or lying position, or you may feel dizzy. Get up slowly and steady yourself to prevent a fall. What are the possible side effects of propranolol? Get emergency medical help if you have any of these signs of an allergic reaction: hives; difficult breathing; swelling of your face, lips, tongue, or throat. Call your doctor at once if you have: slow or uneven heartbeats; a light-headed feeling, like you might pass out; wheezing or trouble breathing; shortness of breath (even with mild exertion), swelling, rapid weight gain; sudden weakness, vision problems, or loss of coordination (especially in a child with hemangioma that affects the face or head); cold feeling in your hands and feet; depression, confusion, hallucinations; liver problems--nausea, upper stomach pain, itching, tired feeling, loss of appetite, dark urine, francisco-colored stools, jaundice (yellowing of the skin or eyes); low blood sugar--headache, hunger, weakness, sweating, confusion, irritability, dizziness, fast heart rate, or feeling jittery; low blood sugar in a baby--pale skin, blue or purple skin, sweating, fussiness, crying, not wanting to eat, feeling cold, drowsiness, weak or shallow breathing (breathing may stop for short periods), seizure (convulsions) , or loss of consciousness; or severe skin reaction--fever, sore throat, swelling in your face or tongue, burning in your eyes, skin pain, followed by a red or purple skin rash that spreads (especially in the face or upper body) and causes blistering and peeling. Common side effects may include: nausea, vomiting, diarrhea, constipation, stomach cramps; decreased sex drive, impotence, or difficulty having an orgasm; sleep problems (insomnia); or tired feeling. This is not a complete list of side effects and others may occur. Call your doctor for medical advice about side effects. You may report side effects to FDA at 3-897-CJB-8247. What other drugs will affect propranolol? Tell your doctor about all medicines you use, and those you start or stop using during your treatment with propranolol, especially: a blood thinner--warfarin, Coumadin, Jantoven; an antidepressant--amitriptyline, clomipramine, desipramine, imipramine, and others; drugs to treat high blood pressure or a prostate disorder--doxazosin, prazosin, terazosin; heart or blood pressure medicine--amiodarone, diltiazem, propafenone, quinidine, verapamil, and others; NSAIDs (nonsteroidal anti-inflammatory drugs)--aspirin, ibuprofen (Advil, Motrin), naproxen (Aleve), celecoxib, diclofenac, indomethacin, meloxicam, and others; or steroid medicine-prednisone and others. This list is not complete. Other drugs may interact with propranolol, including prescription and yghc-cyt-ljgzrgx medicines, vitamins, and herbal products. Not all possible interactions are listed in this medication guide. Where can I get more information? Your pharmacist can provide more information about propranolol. Remember, keep this and all other medicines out of the reach of children, never share your medicines with others, and use this medication only for the indication prescribed. Every effort has been made to ensure that the information provided by [facility]. ('[employer]') is accurate, up-to-date, and complete, but no guarantee is made to that effect. Drug information contained herein may be time sensitive. [facility] information has been compiled for use by healthcare practitioners and consumers in the [place] and therefore [facility] does not warrant that uses outside of the [place] are appropriate, unless specifically indicated otherwise. [employer] drug information does not endorse drugs, diagnose patients or recommend therapy. [employer] drug information is an informational resource designed to assist licensed healthcare practitioners in caring for their patients and/or to serve consumers viewing this service as a supplement to, and not a substitute for, the expertise, skill, knowledge and judgment of healthcare practitioners. The absence of a warning for a given drug or drug combination in no way should be construed to indicate that the drug or drug combination is safe, effective or appropriate for any given patient. [facility] does not assume any responsibility for any aspect of healthcare administered with the aid of information [facility] provides. The information contained herein is not intended to cover all possible uses, directions, precautions, warnings, drug interactions, allergic reactions, or adverse effects. If you have questions about the drugs you are taking, check with your doctor, nurse or pharmacist. Copyright 3615-9516 [facility] Version: 05.21. Revision Date: 2013. Patient Instructions/Instrucciones para el Paciente All smokers are encouraged to stop smoking. If you would like help, talk to your doctor or call [facility] [place] [facility]uit[facility] at 6-670-UIZNNOW (3-259-719- 0360). If you have thoughts about committing suicide or otherwise hurting yourself, please call 911 or call Crisis Line at . Migraine Headache A migraine headache is very bad, throbbing pain on one or both sides of your head. Talk to your doctor about what things may bring on (trigger ) your migraine headaches. HOME CARE Only take medicines as told by your doctor. Lie down in a dark, quiet room when you have a migraine. Keep a journal to find out if certain things bring on migraine headaches. For example, write down: What you eat and drink. How much sleep you get. Any change to your diet or medicines. Lessen how much alcohol you drink. Quit smoking if you smoke. Get enough sleep. Lessen any stress in your life. Keep lights dim if bright lights bother you or make your migraines worse. GET HELP RIGHT AWAY IF: Your migraine becomes really bad. You have a fever. You have a stiff neck. You have trouble seeing. Your muscles are weak, or you lose muscle control. You lose your balance or have trouble walking. You feel like you will pass out (faint ), or you pass out. You have really bad symptoms that are different than your first symptoms. MAKE SURE YOU: Understand these instructions. Will watch your condition. Will get help right away if you are not doing well or get worse. Document Released: 04/14/2009 Document Revised: 09/27/2012 Document Reviewed: [facility] Patient Information 2013 [employer]. Take Charge of Your Health with [facility] Sign up today for [facility] for access to your health records 09/02. [facility] allows you to: Request an appointment Check your lab results Communicate with your providers and care team See provider notes from your visit View immunization records View current medication Sign up Today! Ask your healthcare provider or a [facility] associate for help, or email [email or web address]. [email or web address] Title:Discharge Summary Author:Gerda Irizarry Date:03/01/15 Discharge Information Date of Admission: Admitted 02/27/2015, 03/01/2015. Attending Physician: Carolina Craig Primary Service: [facility]. Primary Diagnosis present or suspected on admission: Headache, worsening - ICD9 784.0 Secondary Diagnosis present or suspected on admission: Chronic migraine without aura - ICD9 346.70 Opioid-induced Headache Discharge or Transfer Condition: At discharge, Stable. Disposition: Home: Self-care. Services Provided in Hospital Consults Neurology consulted for intactable headache. Discharge Diet: Diet Type: Regular. Activity: Ambulate. [facility] Title:Neuro F/u Author:Dereck Vu Date:03/01/15 Patient: MAURIZIO PARRA Age: 34 years Sex: Male : 78 Associated Diagnoses: None Author: Dereck Vu Subjective NAEON. Continues to complain of MORILLO, also notes worsening in back pain. Pt fixated on obtaining stronger pain medication, had to redirect to symptoms and exam 2-3 times a min. States dialudid only lasts for 2 hr out of 3, demands higher dose. Health Status Allergies: Allergic Reactions (Selected) No Known Allergies Current medications: (Selected) Inpatient Medications Ordered APAP/butalbital/caffeine: 1 tab, PO, Q4H, PRN: Headache Dilaudid: 1 mg, 1 mL, IVPush, Q3H, PRN: Pain, Breakthrough Valium: 10 mg, 2 tab, PO, Daily, PRN: Anxiety metoclopramide: 5 mg, 1 mL, IVPush, Q6H, PRN: Nausea/Vomiting ondansetron: 4 mg, 1 tab, PO, BID, PRN: Nausea/Vomiting propranolol: 40 mg, 2 tab, PO, BID Objective VS/Measurements Vital Signs 03/01/15 08:21 Temperature Oral 98.0 DegF Heart Rate 55 bpm LOW Resp. Rate 18 BRMIN Systolic BP 124 mmHg Diastolic BP 53 mmHg LOW Mean Arterial Pressure 77 mmHg BP Site Left Arm Oxygen Saturation 97 % Oxygen Therapy Room air , Bariatric Measurements : Bariatric View 03/01/15 05:00 Weight 72.8 kg Gen: Mild distress HEENT: normocephalic atruamatic Cards: RRR Resp: CTAB Extremities: no edema Neuro Exam: Neurological Mental Status Exam Arousal - Alert and interactive Orientation - Oriented to person, place, and time Attention - Intact Memory - 3/3 at 5 min Speech- normal rate and tone, fluent Neurological Elemental Examination: Cranial nerves: 1st cranial nerve: Not tested 2nd cranial nerve: VF intact, fundoscopic exam WNL 3rd, 4th & 6th cranial nerves: PERRL, EOMI, MORILLO worsens with extreme gaze 5th cranial nerve: symetrical to vibration, fine touch, and temp 7th cranial nerve: symetrical facial movements, no droop 8th cranial nerve: Not tested 9th & 10th cranial nerves: palate raise symetrical 11th cranial nerve: shoulder shrug 5/5 bilat 12th cranial nerve: tongue midline Sensory Exam: vibration, fine touch, and temp intact over all limbs Motor Exam: 5/5 all major muscle groups Coordination: F2N intact bilat Gait/Station: not assessed Deep tendon reflexes: Biceps Brachioradialis Patella Achilles Babinski R 2 2 2 2 Down L 2 2 2 2 Down Results Review LP 02/25/2015: Pt is left lateral decubitus, [id number] openning pressure, bloody tap but normal protein, glucose, and WBC CT Head 02/25/2015: FINDINGS: There is good villeda-white differentiation. The sulcal and gyral patterns are normal and abut the calvarium. The ventricles and subarachnoid spaces are normal. There is no evidence of hemorrhage or mass effect. The paranasal sinuses are well aerated without evidence of sinusitis. The calvarium is intact. The orbits are unremarkable. IMPRESSION: No evidence of acute intracranial pathology. MRI Brain 03/01/2015 Findings: Remote postsurgical changes of right frontotemporal craniotomy. Old right frontal ventriculostomy catheter tract is visualized. There is no restricted diffusion to indicate acute infarct. Tiny focus of gradient susceptibility in the right anterior limb/caudothalamic region likely relates to remote injury or trauma versus small cavernoma or calcification. No intracranial mass is identified. Stable dilation of the lateral and 3rd ventricles with thinning of the corpus callosum. The 3rd ventricle measures 13 mm, unchanged from the prior head CT. No evidence of Chiari malformation. Major arterial flow voids are present, indicating patency. The paranasal sinuses and mastoids are clear. The visualized orbits are unremarkable. Impression: 1. Stable dilation of the lateral ventricles and 3rd ventricle as compared to head CT of 02/25/2015. Given associated thinning of the corpus callosum, findings suggest chronicity. Differential considerations include aqueductus stenosis, likely from web or adhesion. 2. Post surgical changes of right frontotemporal craniotomy and old right frontal ventriculostomy catheter tract. Impression and Plan Pt is a 34 y/o CM with PMH of hydrocephalus with drain placement and subsequent removal, anxiety, h/o migranes, and h/o polysubstance abuse for whom neurology was consulted for the evaluation of intractable headaches. Pt is a poor historian 2/2 anxiety and pain. Burns-positive nature of HPI makes diagnosis of specfic MORILLO type impossible at this time. Unknown cause of hydrocephalus, but [facility] records very clear that ICP does not play a significant role in his MORILLO. Suspect current headache multifactoral and includes rebound headache 2/2 opoid overuse vs spinal headache vs caffeine withdrawl headache vs atypical migrane vs post TBI headache. Feel that spinal MORILLO is unlikely given observed pt movements without noticable pain response and no MRI findings. 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 Pt exhibits strong cluser B traits with attempts to indimidate and bargain with staff for increased pain medications. Has lied several times about what other services/ nurses have done/said. Recs: - MRI brain as above, no cause identified. - Caffeine pills while inpatient, d/c on discharge - Propranolol 40mg BID, it appears pt has not used this class of medication for prophalaxis previously - Ibuprofen 800mg TID scheduled - Attempt to wean pt from narcotics as much as possible Neurology will sign off, page will questions Dereck Vu MD PGY1 Psychiatry Addendum Neurology attending: by I saw and evaluated the patient on 03/01/15. I discussed the patient with Dr. Vu and Nelson agree with the findings and plan as documented. In addition, I note the following: tillo , Medication overuse headaches. MRI brain did not show acute abnormalities or underlying Darwin F on mass. 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 Would recommend continue pain management and avoid chronic opioid use if possible. Patient was advised about the plan, including follow up with PCP and consider pain clinic referral in the future if needed. [facility] Title:Medicine Progress Note Author:Carolina Craig Date:02/28/15 Plan 1. Headache 2/2 Opioid-induced vs increased icp 2/2 hydrocephalus: does not appear to have an acute change. We will get Neurology's input on diagnosis and treatment. Withdrawal is a consideration with no urine drug test and tremulousness. As has been sommulent, will begin to decrease IV narcotics and then proceed as per Neuro recs. We are attempting to get UDS. Appreciate neuro seeing. 2. Leukocytosis, resolving. No fever. Not able to evaluate UA as not collected. Gerda Irizarry, PGY-1 Attending Statement: I personally interviewed and examined Mr. Parra on . I confirmed the history and PE as noted above by Dr. Irizarry. I reviewed the data with the team and directed the plan. Carolina Craig MD molded grid and parts inspector [facility] Family History Value Date Source Advance Directives Order Name Results Value Date Source
[2016-10-06] MEDS ORDERED: FLUO40CA12 PO (14:39)
[2016-10-06] MEDS ORDERED: MORP30CA16 PO (14:39)
[2016-10-06] MEDS ORDERED: DICY20TA10 PO (14:39)
[2016-10-06] MEDS ORDERED: GABA-488 PO (14:39)
[2016-10-06] MEDS ORDERED: DONE10TA12 PO (14:39)
[2016-10-06] MEDS ORDERED: OXYC-202 PO (14:39)
[2016-10-06 14:44] VITALS: BP 114/64
[2016-10-06 15:53] LABS: BASOPHILS % (AUTO) 0 % (0-10); EOSINOPHILS # (AUTO) 0.1 10^3/uL (0.0-0.3); EOSINOPHILS % (AUTO) 2 % (0-10); LYMPHOCYTES # (AUTO) 3.2 X 10^3 (1.0-4.0); LYMPHOCYTES % (AUTO) 36 % (12-44); MEAN CORPUSCULAR HEMOGLOBIN 32 PG (25-34); MEAN CORPUSCULAR HGB CONC 35 G/DL (32-36); MEAN CORPUSCULAR VOLUME 91 FL (80-99); MEAN PLATELET VOLUME 9.4 FL (7.4-10.4); MONOCYTES # (AUTO) 0.8 X 10^3 (0.0-1.0); MONOCYTES % (AUTO) 9 % (0-12); NEUTROPHILS # (AUTO) 4.8 X 10^3 (1.8-7.8); NEUTROPHILS % (AUTO) 54 % (42-75); PLATELET COUNT 215 10^3/uL (130-400); RED BLOOD COUNT 4.98 10^6/uL (4.35-5.85); RED CELL DISTRIBUTION WIDTH 12.9 % (10.0-14.5)
[2016-10-06 16:11] LABS: ALANINE AMINOTRANSFERASE 23 U/L (0-55); ALBUMIN 4.5 G/DL (3.2-4.5); ANION GAP 13 MMOL/L (5-14); ASPARTATE AMINO TRANSFERASE 25 U/L (5-34); BILIRUBIN,DIRECT 0.2 MG/DL (0.0-0.3); BILIRUBIN,INDIRECT 0.3 MG/DL; BILIRUBIN,TOTAL 0.5 MG/DL (0.1-1.0); BLOOD UREA NITROGEN 8 MG/DL (7-18); BUN/CREATININE RATIO 9; CALCIUM 9.4 MG/DL (8.5-10.1); CARBON DIOXIDE 21 MMOL/L (21-32); CHLORIDE 104 MMOL/L (98-107); CREATININE SERUM 0.86 MG/DL (0.60-1.30); GFR ESTIMATED > 60; GLUCOSE 80 MG/DL (70-105); POTASSIUM 4.3 MMOL/L (3.6-5.0); SODIUM 138 MMOL/L (135-145); TOTAL PROTEIN 7.6 G/DL (6.4-8.2)
== END 2016-10-06 16:00 | disposition home or self-care (01) ==
LOC: PREOP 14:22
PROVIDERS: ATTEND Surgery
DX: Z01.812 Encounter for preprocedural laboratory examination (principal); K82.8 Other specified diseases of gallbladder
CPT/HCPCS: 36415; 80053; 80076; 82248; 85025

== ENCOUNTER → 2016-10-06 | Outpatient (CLI) | payer MEDICAID ==
[~2016-10-06] MED LIST: CLON2TAB45 PO; CYCL10TA9 PO; DICY20TA10 PO; DONE10TA12 PO; FLUO20CA25 PO; FLUO40CA12 PO; GABA-488 PO; HYDR2TAB31 PO; MORP30CA16 PO; OXYC-191 PO; OXYC-202 PO
--- NOTE | 2016-10-06 12:18 | Diagnostic Imaging Report ---
PROCEDURE: US Gallbladder. TECHNIQUE: Multiple real-time grayscale images were obtained over the right upper quadrant in various projections. INDICATION: Right abdominal pain. FINDINGS: The visualized portions of the pancreas appear unremarkable. The liver demonstrates no focal lesion. Hepatopetal flow in the portal vein is seen. No intrahepatic biliary dilatation is noted. The CBD is 4 mm in caliber. The gallbladder demonstrates no stones or wall thickening. A small amount of layering sludge, however, is seen. The right kidney is 10.6 cm in length with no hydronephrosis or focal lesion. No fluid collection in the upper right abdomen. IMPRESSION: Mild layering sludge in the gallbladder is seen with no stones or evidence of cholecystitis. Dictated by: Dictated on workstation # [id number]
== END ==
LOC: RAD 11:32
PROVIDERS: ATTEND Nurse Practitioner Community Health
DX: R10.11 Right upper quadrant pain (principal)
CPT/HCPCS: 76705

== ENCOUNTER 2016-10-10 07:28 | Day surgery (SDC) | payer MEDICAID ==
[~2016-10-10] VITALS: Ht 175.3 cm; Wt 69.5 kg
[~2016-10-10 07:28] MED LIST changes: +DICY20TA10 PO; +DONE10TA12 PO; +FLUO40CA12 PO; +GABA-488 PO; +MORP30CA16 PO; +OXYC-202 PO
--- NOTE | 2016-10-10 07:34 | Progress Note-Pre Operative ---
Pre-Operative Progress Note H&P Reviewed The H&P was reviewed, patient examined and no changes noted. Date H&P Reviewed: Oct 10, 2016 Time H&P Reviewed: 07:34 Pre-Operative Diagnosis: Sludge in GB WALDO WRAY MD Oct 10, 2016 7:34 am
[2016-10-10] MEDS ORDERED: ceFAZolin 1 GM/NS 50 ML IVPB IV ONE ×2 (07:45)
[2016-10-10] MEDS ORDERED: metroNIDAZOLE 500 MG/100 ML IVPB (PRE-MIX) IV ONE (07:45)
[2016-10-10] MEDS ORDERED: fentaNYL INJECTION 250 MCG/5 ML AMP ONE (07:47)
[2016-10-10] MEDS ORDERED: KETAMINE HCL 100 MG/ML 5 ML VIAL ONE (07:47)
[2016-10-10] MEDS ORDERED: ONDANSETRON 4 MG/2 ML (SDV) Z0FRAN ONE (07:47)
[2016-10-10] MEDS ORDERED: ROCURONIUM 50 MG/5 ML (ZEMURON) VIAL IV ONE ×2 (07:47→09:30)
[2016-10-10] MEDS ORDERED: proPOfol 200 MG/20 ML (DIPRIVAN) VIAL IV ONE (07:47)
[2016-10-10] MEDS ORDERED: BUP/EPI 0.25% 1:200,000 (MARCAINE) 30 ML VIAL ONE (07:48)
[2016-10-10] MEDS ORDERED: MIDAZOLAM 2 MG/2 ML (VERSED) VIAL ONE ×2 (07:49→08:22)
[2016-10-10] MEDS ORDERED: FAMOTIDINE 20MG/2ML IV (PEPCID) IV ONE (08:00)
[2016-10-10] MEDS ORDERED: fentaNYL INJECTION 100 MCG/2 ML AMP IV ONE (08:00)
[2016-10-10] MEDS: LACTATED RINGERS 1,000 ML IV PRN ×2 (08:10→09:03)
[2016-10-10] MEDS ORDERED: LACTATED RINGERS 1,000 ML IV ONE ×2 (08:17→08:58)
[2016-10-10] MEDS ORDERED: SEVOFLURANE (ULTANE) 15 ML INHAL SOLN ONE ×2 (08:17→09:51)
[2016-10-10] MEDS ORDERED: GLYCOPYRROLATE 0.2 MG/ML (ROBINUL) 2 ML VIAL ONE ×2 (08:54→09:36)
[2016-10-10 09:08] VITALS: BP_SYST 0; BP_SYST 121; BP_DIAS 0; BP_DIAS 71
[2016-10-10] MEDS ORDERED: NEOSTIGMINE (BLOXIVERZ ) 1 MG/1ML 10 ML VIAL ONE (09:36)
[2016-10-10] MEDS ORDERED: KETOROLAC 30 MG/ML VIAL ONE (09:45)
[2016-10-10] MEDS ORDERED: morphine INJ 10 MG/ML 1ML (SYR OR VIAL) ONE (09:45)
--- NOTE | 2016-10-10 09:55 | Progress Note-Post Operative ---
Post-Operative Progess Note Pre-Operative Diagnosis Sludge in GB Post-Operative Diagnosis same Post-Op Procedure Note Date of Procedure: Oct 10, 2016 Name of Procedure: robotic-assisted cholecystectomy Cholangiogram( NORMAL) Anesthesia Type Gen. Estimated blood loss (mL): minimal Specimen(s) collected gallbladder WALDO WRAY MD Oct 10, 2016 9:55 am
[2016-10-10] MEDS ORDERED: OXYC-191 PO (09:56)
--- NOTE | 2016-10-10 09:57 | Discharge Inst-Simple/Standard ---
Discharge Inst-Standard Discharge Medications New, Converted or Re-Newed RX: RX on Chart Patient Instructions/Follow Up Plan of Care/Instructions/FU: ddressings off in 48 hours. Incentive spirometry. Follow-up in 3 weeks. Activity as Tolerated: Yes Discharge Diet: No Restrictions WALDO WRAY MD Oct 10, 2016 9:57 am
[2016-10-10] MEDS ORDERED: ONDANSETRON 4 MG/2 ML (SDV) Z0FRAN IV PRN (10:15)
[2016-10-10] MEDS: HYDROmorphone (DILAUDID) 2 MG/ML VIAL IV PRN ×4 (10:23→10:53)
[2016-10-10 11:15] VITALS: BP 127/60
[2016-10-10] MEDS ORDERED: oxyCODONE/APAP 10/325MG (PERCOCET 10) TABLET PO ONE ×2 (11:20→11:30)
--- NOTE | 2016-10-10 11:28 | OPERATIVE REPORT ---
PROCEDURE PHYSICIAN: WALDO WRAY DATE OF PROCEDURE: 10/10/2016 PREOPERATIVE DIAGNOSIS: Sludge in the gallbladder. POSTOPERATIVE DIAGNOSIS: Sludge in the gallbladder. OPERATION: 1. Robotic assisted cholecystomy. 2. Intraoperative cholangiogram. SURGEON: Michi. ANESTHESIA: General anesthesia. BLOOD LOSS: Minimal FLUIDS: 1600 mL crystalloids. TYPE OF WOUND: Type I (clean wound). INDICATION FOR THE PROCEDURE: Evaluation for right upper quadrant abdominal pain confirmed sludge in the gallbladder. Therefore, he was offered cholecystectomy using minimally invasive technique with robotic assistance, combined with cholangiogram, to rule out choledocholithiasis. Informed consent was obtained after reviewing the operative details and complications of wound infection, bile leak and persistence of his pain. It is notable that his pain was out of proportion to what would be expected from uncomplicated sludge, compounded by chronic pain syndrome and narcotic use. DESCRIPTION OF PROCEDURE: He was placed supine on the operative table and general anesthesia induced using an endotracheal tube. A gram of Ancef and 500 mg of Flagyl were administered intravenously as prophylaxis against wound infection. Sequential compression devices were placed around his legs, to minimize the risk of venous thrombosis. Abdomen was prepared and draped in the usual sterile manner. A supraumbilical incision was made and pneumoperitoneum established using a Veress needle. Intra-abdominal pressure was maintained at 15 mmHg. A 12 mm trocar was placed and anatomy visualized using a 30 degree laparoscope associated with da Alessio system. The gallbladder was obscured by adhesions involving the pylorus of the stomach and small bowel over the epigastric and right upper quadrant regions. In addition, previously placed CONCRETE ENGINEER shunt catheters were also seen over the right upper quadrant and along the midline. Under direct view, I placed an 8 mm cannula over each side of the abdomen, followed by a 5 mm trocar over the epigastric area, avoiding the small bowel, that was adherent to the anterior abdominal wall. The patient was then turned into reverse Trendelenburg position with the right side tilted up. The robotic system was then docked in place. The fundus of the gallbladder was visualized and retracted using a grasper introduced via the 5 mm trocar. The pylorus of the stomach was taken down carefully using hook cautery without any iatrogenic injury. Peritoneum overlying Calot's triangle was then incised using hook cautery, delineating the cystic duct and artery. Cholangiogram was obtained using a Taut catheter. It revealed normal anatomy with no filling defects in the common bile duct. There was no ductal dilatation either. The contrast flowed freely into the duodenum. The catheter was then removed and the cystic duct controlled using locking clips. The cystic artery was also divided between locking clips. Cholecystectomy was then completed using hook cautery. Hemostasis was satisfactory. The gallbladder was then placed in an EndoCatch bag and removed via the supraumbilical trocar site. The fascia over this incision was then closed using number 1 Vicryl using an Endo Close device, under direct laparoscopic view. Skin incisions were closed using 4-0 Vicryl, in a subcuticular fashion. 0.25% Marcaine with epinephrine was infiltrated along the incision both preemptively and at the conclusion of the operation. He tolerated the procedure well, was extubated in the operating room and taken to the recovery room in a stable condition. [place], sponges, and instruments were correct at the end of operation. Job ID: [id number] Dictated Date: 10/10/2016 09:54:09 Taffy Puller Date: 10/10/2016 11:11:51 / soumya GUTIERREZ
[2016-10-10 11:45] VITALS: BP 127/63
[2016-10-10] MEDS ORDERED: HYDROmorphone (DILAUDID) 2 MG/ML VIAL IVP PRN (12:00)
[2016-10-10 12:15] VITALS: BP 124/74
[2016-10-10 12:35] VITALS: BP 124/74
--- NOTE | 2016-10-10 14:37 | Diagnostic Imaging Report ---
Intraoperative view. INDICATION: Abdominal pain. Cholecystectomy performed by Dr. Borden. 44 seconds of fluoroscopy time is provided. 10 cc of Omnipaque-300 is injected in the cystic duct. FINDINGS: Normal caliber of the CBD is demonstrated with no filling defect to suggest stone or obstruction. There is overlapping density of contrast in the distal aspect of the CBD from overlying contrast within the duodenal lumen. Partial opacification of intrahepatic biliary ducts is seen with no definite abnormality. IMPRESSION: No evidence of CBD obstruction. Dictated by: Dictated on workstation # [id number]
--- OUTSIDE RECORDS SUMMARY | 2016-10-12 11:58 | XMS REPORT ---
Author JUSTIN Shah [facility] eClinicalWorks Address Unknown Phone Unavailable Care Team Providers Care Building Inspector Name Role Phone JUSTIN JEFFERY CP Unavailable Allergies, Adverse Reactions, Alerts Substance Reaction Event Type N.K.D.A. Info Not Available Non Drug Allergy Problems Problem Type Condition Code Onset Dates Condition Status Assessment Dental caries K02.9 Active Medications Medication Code System Code Instructions Start Date End Date Status Dosage Winger [facility] [address]-19 5-325 MG Orally every 6 hrs 1 tablet as needed Amoxicillin [facility] [address]-84 500 MG Orally 4 times a day 1 tablet Procedures Procedure Coding System Code Date EXTRAC ERUPTED TOOTH/EXPOSED ROOT CPT-4 D7140 Aug 14, 2015 EXTRAC ERUPTED TOOTH/EXPOSED ROOT CPT-4 D7140 Aug 14, 2015 Vital Signs Date/Time: Aug 22, 2015 Blood Pressure Diastolic 67 mmHg Blood Pressure Systolic 126 mmHg Results No Known Results Summary Purpose eClinicalWorks Submission
--- OUTSIDE RECORDS SUMMARY | 2016-10-12 11:58 | XMS REPORT | Continuity of Care Document ---
Author Author [facility] Organization [facility] Address Unknown Phone Unavailable Care Team Providers Care Tar Boiler Name Role Phone Self, Referral PCP Unavailable Source Comments Some departments are not documenting in the electronic medical record. If you do not see the information that you expected, contact Release of Information in the Health Information Management department at [phone] for further assistance in locating additional records.[facility] Active Allergies and Adverse Reactions No Known Allergies Current Medications Prescription Sig. Disp. Refills Start End Date Status Date citalopram (CELEXA) 10 mg Take 10 mg by mouth Active tablet daily. clonazePAM (KLONOPIN) 2 Take 2 mg by mouth twice Active mg tablet daily. oxyCODONE-acetaminophen Take 1 Tab by mouth twice Active (PERCOCET; ENDOCET) daily 10-325 mg tablet carisoprodol(+) (SOMA) Take 350 mg by mouth Active 350 mg tablet daily. ranitidine(+) (ZANTAC) Take 150 mg by mouth as Active 150 mg tablet Needed. HYDROmorphone (DILAUDID) Take 2 mg by mouth every Active 2 mg tablet [address] Take 20 mg by mouth Active (PROTONIX) 20 mg tablet daily. rejwcufsu-gmauytgpl-[id number] Apply 1 Patch to affected 21 Patch 0 Active ol 1-0.0375-5 % ptmd area daily. 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 Acute infection of nasal sinus 08/27/2007 Hydrocephalus 08/02/2007 Immunizations Name Dates Previously Given Next Due FLU VACCINE >3YO 06/08/2012 (Preservative Free) Pneumococcal Vaccine 01/31/2013, 01/12/2012 (23-Mone Adult) Social History Tobacco Use Types Packs/Day Years Used Date Former Smoker 0.5 10 Smokeless Tobacco: Former User Comments: quite 4 months ago Alcohol Use Drinks/Week oz/Week Comments Yes drinks monthly Last Filed Vital Signs Vital Sign Reading Time Taken Blood Pressure 137/68 12/17/2015 4:10 PM CDT Pulse 108 12/17/2015 4:10 PM CDT Temperature 36.5 C (97.7 F) 04/23/2015 10:46 AM CDT Respiratory Rate - - Height 1.753 m (5' 9.02") 12/17/2015 9:55 AM CDT Weight 72.576 kg (160 lb) 12/17/2015 9:55 AM CDT Body Mass Index 23.62 12/17/2015 9:55 AM CDT Oxygen Saturation 97% 12/17/2015 4:54 PM CDT Plan of Care Health Maintenance Due Date Last Done Comments Physical (Comprehensive) 1986 Exam Pertussis Vaccine 1990 Tetanus Vaccine 1996 Influenza Vaccine 03/20/2017 06/08/2012 Results from Last 3 Months Not on file
--- OUTSIDE RECORDS SUMMARY | 2016-10-12 11:58 | XMS REPORT ---
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
--- OUTSIDE RECORDS SUMMARY | 2016-10-12 11:58 | XMS REPORT ---
Author Author VALERY GIBSON Organization [employer] Address Unknown Phone Unavailable Care Team Providers Care Car Worker Name Role Phone VALERY GIBSON CP Unavailable Allergies, Adverse Reactions, Alerts Substance Reaction Event Type N.K.D.A. 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 Assessment Other chronic pain G89.29 Active Problem Pain in right shoulder M25.511 Active Problem Nausea R11.0 Active Medications Medication Code System Code Instructions Start Date End Date Status Dosage MS Contin [facility] [address]-12 30 MG Orally every 12 hrs January 02, 2016 1 tablet Percocet [facility] [address]-30 10-325 MG Orally every 6 hrs December 27, 2015 1 tablet as needed Procedures Procedure Coding System Code Date Office Visit, Est Pt., Level 3 CPT-4 28338 May 12, 2016 Vital Signs Date/Time: May 12, 2016 Cardiac Monitoring Heart Rate 76 bpm Weight 146.7 lbs Height 69 in BMI 21.66 Index Blood Pressure Diastolic 80 mmHg Blood Pressure Systolic 140 mmHg Results No Known Results Summary Purpose eClinicalWorks Submission
--- OUTSIDE RECORDS SUMMARY | 2016-10-12 11:58 | XMS REPORT | Continuity of Care Document ---
Author Author [employer] Organization [facility] Address Unknown Phone Unavailable Care Team Providers Care Electrical Engineer Name Role Phone [employer] Unavailable Unavailable Problems Problem Status Onset Date Classification Date Reported Comments Source Acute diarrhea (disorder) Diagnosis 08/04/2016 [facility] Intestinal obstruction co-occurrent and due to decreased peristalsis (disorder ) 07/31/2016 Diagnosis 08/04/2016 [facility] Discharge Diagnosis: History of hydrocephalus 12/13/2015 12/17/2015 [facility] Discharge Diagnosis: Aching headache 12/12/20152015 [facility] Chronic migraine without aura, without mention of intractable migraine, without mention of status migrainosus 02/28/20152014 [facility] Drug induced headache, not elsewhere classified 02/28/2015 03/06/2015 [facility] Reaction to spinal or lumbar puncture 02/28/20152014 [facility] Headache 02/27/2015 03/06/2015 [facility] Obstructive hydrocephalus 03/06/2015 [facility] Opioid type dependence, in remission 12/26/2014 Diagnosis 12/31/2014 [facility] Headache 11/18/2014 Diagnosis 11/23/2014 [facility] Painful respiration 2014 Diagnosis 10/05/2014 [facility] Post-traumatic headache, unspecified 07/26/2014 Diagnosis 07/31/2014 [facility] Headache 05/11/2014 Diagnosis 05/15/2014 [facility] Pain in limb 03/31/2014 Diagnosis 04/04/2014 [facility] Personal history of other disorders of nervous system and sense organs 03/03/2014 Diagnosis 03/07/2014 [facility] Tobacco user (finding) Resolved 05/27/2013 Problem 2016 Updated by Discern Expert based on Social History Documentation Added by Discern Expert based on Social History Documentation [facility], [facility], [facility], [facility] Headache (finding) Active Problem 08/04/2016 [facility], [facility], [facility], [facility] Headache disorder (disorder) Active Problem 08/04/2016 [facility], [facility] Anxiety (finding) Active Problem 12/17/2015 [facility] Hydrocephalus (disorder) Active Problem 12/17/2015 [facility] Leukocytosis (disorder) Active Problem 12/17/2015 [facility] Migraine (disorder) Active Problem 12/17/2015 [facility] Anxiety state, unspecified 03/06/2015 [facility] Leukocytosis, unspecified 03/06/2015 [facility] Cannabis abuse, unspecified use 03/06/2015 [facility] History of tobacco use 03/06/2015 [facility] Unemployment 03/06/2015 [facility] Final: HEADACHES WO SENIOR CARE 03/06/2015 [facility] Other specified visual disturbances 03/02/2015 [facility] Medications Medication Details Route Status Patient Instructions Ordering Provider Order Date Source No Known Medications No known medications Active [facility] Tdap 0.5 mL, SUSP, IM, ONCE, NOW, 03/09/11 13:58:00, Stop date 03/09/11 13:58:00 Inactive [facility], [facility] propranolol 20 mg oral tablet
</br>=40 mg, 2 tab, PO, BID, # 120 tab, 0 Refill(s), tab Active [facility] Acetaminophen 300 MG / butalbital 50 MG / Caffeine 40 MG Oral Capsule
</br>1 cap, PO, Q4H, PRN Headache, # 10 cap, 1 Refill(s) Inactive [facility] Acetaminophen 325 MG / Hydrocodone Bitartrate 5 MG Oral Tablet [[place] 5/325]
</br>1 tab, tab, ONCE, PO, Start date 03/01/15 11:52 :00, Stop date 03/01/15 11:52:00
</br>Notes: Not to exceed 4000 mg of acetaminophen TOTAL in 24 hours. TIME CRITICAL MED IF SCHEDULED Inactive [facility] Allergies, Adverse Reactions, Alerts Substance Category Reaction Severity Reaction type Status Date Reported Comments Source Morphine Assertion headache Drug intolerance [facility] morphine drug intolerance headache Adverse Reaction Active [facility], [facility] Immunizations Immunization Date Given Site Status Last Updated Comments Source Tdap 03/09/2011 Left Deltoid tetanus/diphth/pertuss (Tdap) adult/adol [facility], [facility] tetanus/diphth/pertuss (Tdap) adult/adol 03/09/2011 completed [facility], [facility] No data available for this section No data available for this section [facility] Results Order Name Results Value Reference [...] and the shunt was eventually removed at [facility] by Dr. Tao. Since that time, the patient has had chronic headaches, bilaterally retro-orbital. The headaches have become worse over the past 5-6 days. Denies fevers, chills or nuchal rigidity. Patient reports nausea and vomiting. Patient denies any recent change to his vision, although states that he just got new glasses yesterday. Patient was seen at [facility] ED in 2014 for similar complaints [...] Surgeries" - 4 at , 3 at [facility] - unsure of dates and exact procedures [...] No deformity. Normal gait. Integumentary: Warm, Dry, [place]. Neurologic: Alert, Oriented, Normal sensory, Normal motor function, No focal defects, Cranial Nerves II-XII are grossly intact. Review / Management CT Head w/o Cont [id number] - 02/25/15 15:09 Impression: No evidence of acute intracranial pathology. THIS IS AN ELECTRONICALLY VERIFIED REPORT 02/25/2015 3:25 PM: Jaime Brower M.D.GR:robert 03:24 PMT: 02/25/201503:25 pmRI MRI Brain w/o Cont [id number] - 03/01/15 09:26 Impression: 1. Stable dilation [...] the above examination CT Head w/o Cont [id number] - 12/12/15 20:49 Impression: 1. Enlargement of [...] measure opening pressure would be appropriate. 12/12/2015 [facility] CT Head w/o Cont [id number] CT Head w/o Cont [id number] Name: MAURIZIO PARRA CT Scan Accession Number Exam Exam Date/Time Ordering Physician [id number] CT Head w/o Cont 12/12/2015 20:49 CDT Joe Tubbs CPT code 64160 Reason For Exam (CT Head w/o Cont) [...] Accession Number Exam Exam Date/Time Ordering Physician [id number] CT Head w/o Cont 12/12/2015 20:49 CDT Joe Tubbs Report BOR Final Report Dictating Physician: Norma Marina ELECTRONIC SIGNATURE Signed: 12.12.2015 21:36 Signed by: Norma Marina Technologist: Hollie Forbes RT(R)(CT),Dale Yao RT(R) 12/12/2015 [facility] ED Note - Provider ED Note [...] CT Scan, 1 Week, Future Order, Dena Wheatley Power[employer]ders Non-Net Orders: ED Discharge Patient (Order): 12/12/15 22:56, Home. Notes: NSGY rec no intervention and to f/u in clinic. Pain improved. Return precautions given. He understood.. Impression and Plan Aching headache ([id number]) Hydrocephalus ([id number] G91) Plan Condition: Improved, Stable. Patient was given the following educational materials: Financial Assistance ( Custom). Follow up with: Follow up with primary care provider Take tylenol or ibuprofen as needed for pain. Follow up with your primary care doctor and Neurosurgery clinic. Return for any concerns. ; ; [facility]. Counseled: Patient, Regarding diagnosis, Regarding [...] meds , dispo Dena Wheatley MD 12/12/2015 [facility] Discharge Summary Discharge Summary Patient: MAURIZIO [...] had been seen the previous day at [facility] for similar complaint. Pt states his [...] with his local PCP. Carolina Craig MD microbiology instructor 03/01/2015 [facility] Neurology Documents Neurology Documents Patient: MAURIZIO [...] LP 02/25/2015: Pt is left lateral decubitus, [id number] openning pressure, bloody tap but normal protein, [...] cause of hydrocephalus will be ramachandran for jail therapy success. 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 Would recommend continue pain management and avoid chronic opioid use if possible. Patient was advised about the plan, including follow up with PCP and consider pain clinic referral in the future if needed. 03/01/2015 [facility] MRI Brain wo Cont [id number] MRI Brain wo Cont [id number] Name: MAURIZIO PARRA MRI Accession Number Exam Exam Date/Time Ordering Physician [id number] MRI Brain w/o Cont 03/01/2015 09:26 CDT Gerda Irizarry CPT code 43674 Reason For Exam (MRI Brain w/o Cont) headache Report Procedure: MRI Brain wo Cont [id number] Reason for exam: headache ; history of [...] Technologist: Ale Rider, RT(R)(CT)(MR),Serene Cam, RT(R)(MR) 03/01/2015 [facility] Student Note - Education Only Student [...] had been seen the previous day at [facility] for similar complaint. Pt states his [...] Dilaudid 1 mg Q3H. Throughout stay 03/01/2015 [facility] Student Note - Education Only Student [...] had been seen the previous day at [facility] for similar complaint. Pt states his [...] of pain management, requesting Throughout stay 03/01/2015 [facility] Urinalysis UA Leuk Est Negative (02/28/15 11:40 AM) Negative 02/28/2015 [facility] Urine Drug Screen U Barbiturates Negative *NA* (02/28/15 11:40 AM) 2014 [facility] Urine culture bacterial No growth at 24 hours 2014 [facility] Neurology Documents Neurology Documents Patient: MARUIZIO PARRA Age: 34 years Sex: Male : [birth year] Associated Diagnoses: None Author: Dereck Vu Chief Complaint 02/27/15 15:54 "It's worse, I was here last night". Reports here last noc for MORILLO and had LP done. "From my eyes to my back, everything hurts". Reports pain worsened after getting home from ER visit [place] + blurry vision. Pt. went to [facility] this morning History of Present Illness Mr. [...] Surgeries" - 4 at , 3 at [facility] - unsure of dates and exact procedures [...] LP 02/25/2015: Pt is left lateral decubitus, 60baU3H openning pressure, bloody tap but normal protein, [...] presentation/cause of hydrocephalus will be ramachandran for jail therapy success. Recs: - MRI brain - [...] will continue to follow, page with questions Dreeck Vu MD PGY1 Psychiatry Neurology attending: I [...] and lower extremities. Coordination is intact to [id number] bilaterally. DTRs: 2+ in biceps, triceps, patellar reflex bilaterally, 1+ ankle reflex bilaterally. Babinski sign is absent, clonus is not elicited. Gait was not assessed Imaging: CT head non-contrast: No acute abnormality, chronic hydrocephalus (similar findings compared to previous CT scans at [facility]). Assessment: Patient with history of chronic daily [...] contrast to evaluate for intracranial abnormalities. 02/28/2015 [facility] Student Note - Education Only Student [...] 0.71 mg/dL LOW BUN/Creat Ratio 15.5 GFR -[place] >90 mL/min/1.73m2 GFR Non -[place] >90 mL/min/1.73m2 Calcium 9.0 mg/dL Osmo (Calc) 285 mOsm/kg 3/cmm 6/cmm Hemoglobin 14.1 g/dL Hematocrit 43.5 % MCV 95.8 FL MCH 31.0 PG XR Chest 2 Views [id number] - 02/27/15 05:25 Impression: No acute cardiopulmonary process.Dr. Andrew CasperDr. Andrew Casper and the staff radiologist have jointly reviewed and interpreted the above examination CT Head w/o Cont [id number] - 02/25/15 15:09 Impression: No evidence of [...] brain surgery starting in 2006 at and [facility], records requested -Pt will need outpatient f/u with Neuro -Adjust Dilaudid to 2 mg Q2H -Order UDS, CRP Leukocytosis -WBC 9.0 trending down, afebrile -Order UA, sputum culture, blood culture -Will not start abx at this time Anxiety -Continue home medication Valium 10 mg 02/28/2015 [facility] Inpatient Progress Note Inpatient Progress Note Patient: MAURIZIO PARRA Age: 34 years Sex: Male : [birth year] Associated Diagnoses: None Author: Carolina Craig continues to complain of headache nad nausea.Headache is at 8/ 10.Dilaudid dose decreased to 2mg Q3H this morning since nurses called in to say he has been really somnolent with 2.5mg. Records from and [facility] yet to be recieved. Objective General: Alert [...] and directed the plan. Carolina Craig MD microbiology instructor 02/28/2015 [facility] Chemistry Potassium 4.6 mmol/ L 3.6 - 5.1 02/28/2015 [facility] Hematology Baso % 0.6 % 0.0 - 2.0 02/28/2015 [facility] GS Specimen rejected: Contains >25 squamous epithelial cells. Please resubmit. Person Notified: Yanique Dutta on 02/28/15 at 0850 on 4 green [id number]. 02/28/2015 [facility] Inpatient Progress Note Inpatient Progress Note Patient: MAURIZIO PARRA Age: 34 years Sex: Male : 78 Associated Diagnoses: None Author: Yola Castañeda I was called by the caring nurse that the patient has nausea and had an episode of billious vomiting Impression: opiod or headache induced Plan: Add metoclopramide 10 mg I.V. q 6 hours Yola Castañeda M.D. PGY-1, Internal Medicine Pager [phone] 02/27/2015 [facility] Blood culture bacterial No growth at 5 days. 2014 [facility] Blood culture bacterial No growth at 5 days. 2014 [facility] Student Note - Education Only Student Note - Education Only Patient: MAURIZIO PARRA Age: 34 years Sex: Male : [birth year] Associated Diagnoses: None Author: Jackeline Tavera Subjective Mr. Parra states his headache has gotten worse since last night. He describes the pain as excruciating 04/28. He reports pain subsided to 2/10 after receiving dilaudid 2mg. He describest the [...] mg/dL LOW BUN/Creat Ratio 9.8 LOW GFR -[place] >90 mL/min/1.73m2 GFR Non -[place] >90 mL/min/1.73m2 Calcium 9.3 mg/dL Osmo (Calc) 290 mOsm/kg 3/cmm HI 6/cmm Hemoglobin 13.9 g/dL LOW Hematocrit 41.8 % CT Head w/o Cont [id number] - 02/25/15 15:09 Impression: No evidence of [...] brain surgery starting in 2006 at and [facility], records requested -Pt will need outpatient f/u with Neuro -Start Caffeine pills -Adjust Dilaudid to 2.5 mg Q2H -Order UDS, CRP Leukocytosis -WBC elevated 16.8, afebrile -Order UA, sputum culture, blood culture -Will not start abx at this time Anxiety -Continue home medication Valium 10 mg 02/27/2015 [facility] XR Chest 2 Views [id number] XR Chest 2 Views [id number] Name: MAURIZIO PARRA Diagnostic Radiology Accession Number Exam Exam Date/Time Ordering Physician [id number] XR Chest 2 Views 02/27/2015 05:25 CDT Bianca Navarro CPT code 12295 Reason For Exam (XR Chest 2 Views) Cough, leukocytosis Report Study: XR Chest 2 Views [id number] Reason for exam: Cough, leukocytosis Comparison: None. [...] Faby Neal Technologist: Shanell Nassar RT(R)(CT) 02/27/2015 [facility] Blood Bank Cumulativ ABORH TYPE A POS 02/27/2015 [facility] Blood Bank [facility]H TYPE A POS 02/27/2015 [facility] Chemistry CO2 23 mmol/L 22 - 32 02/27/2015 [facility] Hematology NRBC Auto 0.0 / 100WBC 02/27/2015 [facility] Special Hematology Sed Rate 5 mm/h 1 - 10 02/27/2015 [facility] History and Physical History and Physical Patient: MAURIZIO PARRA Age: 34 years Sex: Male : [birth year] Associated Diagnoses: None Author: Bianca Navarro Chief Complaint 02/26/15 19:27 "It's worse, I was here last night". Reports here last noc for [place]O and had LP done. "From my eyes to my back, everything hurts". Reports pain worsened after getting home from ER visit at [place] + blurry vision. Pt. went to [facility] this morning History of Present Illness Mr. [...] list: All Problems Anxiety / SNOMED CT 39021447 / Confirmed Hydrocephalus / SNOMED CT 547832692 / Confirmed Migraines / SNOMED CT 25249652 / Confirmed Histories Past Medical History: All Problems Anxiety / SNOMED CT 40859798 / Confirmed Hydrocephalus / SNOMED CT 500824436 / Confirmed Migraines / SNOMED CT 20046131 / Confirmed Procedure history: No active procedure history items have been selected or recorded. Past Surgical History: MRSA debridement of R axilla and L thigh "7 Cerebral Surgeries" - 4 at , 3 at [facility] - unsure of dates and exact procedures [...] Medicine - Requesting outside records from and [facility] for Discharge summaries, med recs, and imaging. [...] MRI brain. Will request records from and [facility] for further look into hydrocephalus and associated [...] and directed the plan. Carolina Craig MD microbiology instructor 02/27/2015 [facility] ED Note - Provider ED Note [...] after getting home from ER visit at [place] + blurry vision. Pt. went to [facility] this morning 02/25/15 12:18 Chief Complaint HERE FOR M[place]O THAT STARTED 3-4 DAYS AGO ANNE-MARIE MCKAY HAS HX OF [...] list: All Problems Anxiety / SNOMED CT 67806305 / Confirmed Hydrocephalus / SNOMED CT 398257410 / Confirmed Migraines / SNOMED CT 37078651 / Confirmed. Physical Examination Vital Signs Vital [...] mg/dL LOW BUN/Creat Ratio 9.8 LOW GFR -[place] >90 mL/min/1.73m2 GFR Non -[place] >90 mL/min/1.73m2 Calcium 9.3 mg/dL Osmo (Calc) 290 mOsm/kg 3/cmm HI 6/cmm Hemoglobin 13.9 g/dL LOW Hematocrit 41.8 % MCV 92.9 FL MCH 30.8 PG MCHC 33.2 % 3/cmm MPV 8.4 FL RDW 14.5 % Gran % 79.4 % HI Lymph % 13.7 % LOW [place] % 6.0 % Eos % 0.4 % [...] (Order): 02/27/15 02:13, ONCE . Notes: Spoke [facility] admitting team. Informed of patient course and [...] Pt is currently sleeping in room 02/26/2015 [facility] CSF Studies CSF Protein 28.0 mg/dL 15.0 - 45.0 2014 [facility] GS No WBC's seen. No organisms seen. Due to insufficient volume, sensitivity of microbial culture may be compromised. 02/26/[address] [facility] [address] Head w/o Cont [id number] CT Head w/o Cont [id number] Name: MAURIZIO PARRA CT Scan Accession Number Exam Exam Date/Time Ordering Physician [id number] CT Head w/o Cont 02/25/2015 15:09 CDT Walter , Florina CPT code 38436 Reason For Exam (CT Head w/o Cont) [...] 03:25 pm MARIAM Final Report Dictating Physician: Oscar Casillas ELECTRONIC SIGNATURE Signed: 02.25.2015 15:28 Signed by: Oscar Casillas Technologist: Heidi Mackay, RT(R)(CT) 02/25/2015 [facility] ED Note - Provider ED Note [...] 02/25/15 13:14 Radiology: CT Head w/o Cont [id number] (Order): Stat, 02/25/15 13:14, headache, h/o hydrocephalus, [...] physician interpretation: WNL, CT Head w/o Cont [id number] - 02/25/15 15:09 Impression: No evidence of acute intracranial pathology. THIS IS AN ELECTRONICALLY VERIFIED REPORT 02/25/2015 3:25 PM: Jaime Brower M.D.GR:robert 03:24 PMT: 02/25/201503:[address] Head w/o cont IMPRESSION: [...] Pending CT Head and records from and [facility]. . Time: 02/25/15 15:36:00 . Interventions: [employer] Pharmacy: Benadryl (Order): 25 mg, IVPush, ONCE Compazine (Order): 10 mg, IVPush, ONCE Toradol (Order): 30 mg, IVPush, ONCE Sodium Chloride 0.9% (Normal Saline bolus) (Order): 1,000 mL, IVPB, ONCE . Time: 02/25/15 17:15:00 . Assessment: Patient states pain uncontrolled. Agrees to LP and was told will get dilaudid for pain control. - Iván Contreras. Interventions: [employer] Laboratory: CSF culture (Order): Collect Routine, 02/25/15 [...] to go home. Marii cazares phone number [phone] or [phone] d/w Dr. Strauss who agrees with this [...] the following educational materials: Follow up with: [facility] You were seen here today [...] Launch Orders Diagnosis: *Lumbar Puncture, Diagnostic (Prof [id number]) (Order): 1, 02/25/15 18:26, Episodic headache, 02/25/15 18:26 , Launch Orders Diagnosis: *Level 4 ED Visit (Prof [id number]) (Order): 1, 02/25/15 20:40, Episodic headache , 02/25/15 20:40 . 02/25/2015 [facility] Vital Signs Vital Sign Value Date Comments Source Systolic BP 121 mmHg 2015 [facility] Diastolic BP 74 mmHg 2015 [facility] Mean Arterial Pressure 90 mmHg 12/13/2015 [facility] Oxygen Therapy Room air
</br>(12/12/15 11:08 PM) 12/13/2015 [facility] Oxygen Saturation 98 % 2015 [facility] Temperature Oral 98.1 [degF] 12/13/2015 [facility] Resp. Rate 18 BRMIN 2015 [facility] Heart Rate 82 bpm 12/13/2015 [facility] Systolic BP 118 mmHg 2015 [facility] Diastolic BP 73 mmHg 2015 [facility] Oxygen Saturation 97 % 2015 [facility] Oxygen Therapy Room air
</br>(12/12/15 7:41 PM) 12/13/2015 [facility] Temperature Route Oral
</br>(12/12/15 7:41 PM) 12/13/2015 [facility] Temperature Oral 97.9 [degF] 12/13/2015 [facility] Heart Rate 80 bpm 12/13/2015 [facility] Resp. Rate 18 BRMIN 2015 [facility] Heart Rate 55 bpm 03/01/2015 [facility] BP Site Left Arm
</br>(03/01/15 8:21 AM) 03/01/2015 [facility] Systolic BP 124 mmHg 2014 [facility] Diastolic BP 53 mmHg 2014 [facility] Oxygen Saturation 97 % 2014 [facility] Oxygen Therapy Room air
</br>(03/01/15 8:21 AM) 03/01/2015 [facility] Temperature Oral 98.0 [degF] 03/01/2015 [facility] Resp. Rate 18 BRMIN 2014 [facility] Mean Arterial Pressure 77 mmHg 03/01/2015 [facility] Temperature Oral 97.8 [degF] 03/01/2015 [facility] Systolic BP 128 mmHg 2014 [facility] Diastolic BP 70 mmHg 2014 [facility] Oxygen Saturation 97 % 2014 [facility] BP Site Left Arm
</br>(03/01/15 4:39 AM) 03/01/2015 [facility] Oxygen Therapy Room air
</br>(03/01/15 4:39 AM) 03/01/2015 [facility] Cuff Size Adult Long Cuff
</br>(03/01/15 4:39 AM) 03/01/2015 [facility] Resp. Rate 20 BRMIN 2014 [facility] Heart Rate 60 bpm 03/01/2015 [facility] Oxygen Saturation 96 % 2014 [facility] Oxygen Therapy Room air
</br>(02/28/15 11:41 PM) 03/01/2015 [facility] Resp. Rate 20 BRMIN 2014 [facility] Systolic BP 122 mmHg 2014 [facility] Diastolic BP 62 mmHg 2014 [facility] Heart Rate 65 bpm 03/01/2015 [facility] Temperature Oral 98.3 [degF] 03/01/2015 [facility] Cuff Size Adult Long Cuff
</br>(02/28/15 11:41 PM) 03/01/2015 [facility] BP Site Right Arm
</br>(02/28/15 11:41 PM) 03/01/2015 [facility] Cuff Size Adult Long Cuff
</br>(02/28/15 7:47 PM) 03/01/2015 [facility] Mean Arterial Pressure 89 mmHg 02/28/2015 [facility] Mean Arterial Pressure 85 mmHg 02/28/2015 [facility] Mean Arterial Pressure 95 mmHg 02/27/2015 [facility] Heart Rate 92 bpm 02/27/2015 [facility] Oxygen Saturation 98 % 2014 [facility] Temperature Oral 98.7 [degF] 02/27/2015 [facility] Oxygen Therapy Room air
</br>(02/27/15 2:01 PM) 02/27/2015 [facility] Resp. Rate 18 BRMIN 2014 [facility] BP Site Right Arm
</br>(02/27/15 2:01 PM) 02/27/2015 [facility] Systolic BP 124 mmHg 2014 [facility] Diastolic BP 80 mmHg 2014 [facility] Oxygen Therapy Room air
</br>(02/27/15 11:45 AM) 02/27/2015 [facility] Oxygen Saturation 95 % 2014 [facility] Oxygen Therapy Room air
</br>(02/27/15 10:45 AM) 02/27/2015 [facility] Oxygen Saturation 95 % 2014 [facility] BP Site Right Arm
</br>(02/27/15 8:39 AM) 02/27/2015 [facility] Cuff Size Adult Regular Cuff
</br>(02/27/15 8:39 AM ) 02/27/2015 [facility] Systolic BP 145 mmHg 2014 [facility] Diastolic BP 71 mmHg 2014 [facility] Mean Arterial Pressure 96 mmHg 02/27/2015 [facility] Resp. Rate 18 BRMIN 2014 [facility] Heart Rate 73 bpm 02/27/2015 [facility] Temperature Oral 97.5 [degF] 02/27/2015 [facility] Mean Arterial Pressure 86 mmHg 02/27/2015 [facility] Resp. Rate 18 BRMIN 2014 [facility] Heart Rate 57 bpm 02/27/2015 [facility] Systolic BP 123 mmHg 2014 [facility] Diastolic BP 67 mmHg 2014 [facility] Temperature Route Oral
</br>(02/26/15 9:41 PM) 02/27/2015 [facility] Temperature Oral 98.0 [degF] 02/27/2015 [facility] Temperature Route Oral
</br>(02/26/15 7:27 PM) 02/27/2015 [facility] BP Site Right Arm
</br>(02/25/15 6:59 PM) 02/25/2015 [facility] Mean Arterial Pressure 95 mmHg 02/25/2015 [facility] Cuff Size Adult Regular Cuff
</br>(02/25/15 6:59 PM ) 02/25/2015 [facility] Temperature Oral 97.6 [degF] 02/25/2015 [facility] Resp. Rate 18 BRMIN 2014 [facility] Heart Rate 64 bpm 02/25/2015 [facility] Systolic BP 125 mmHg 2014 [facility] Diastolic BP 80 mmHg 2014 [facility] Oxygen Saturation 96 % 2014 [facility] Systolic BP 129 mmHg 2014 [facility] Diastolic BP 72 mmHg 2014 [facility] Oxygen Therapy Room air
</br>(02/25/15 12:18 PM) 02/25/2015 [facility] Oxygen Saturation 99 % 2014 [facility] Temperature Oral 98.2 [degF] 02/25/2015 [facility] Resp. Rate 20 BRMIN 2014 [facility] Heart Rate 74 bpm 02/25/2015 [facility] Temperature Route Oral
</br>(02/25/15 12:18 PM) 02/25/2015 [facility] Encounters Location Location Details Encounter Type Encounter Number Reason For Visit Attending Provider ADM Date DC Date Status Source [facility] CD:063986 Emergency [id number] RICHARD MOJICA 07/04/2012 Active [employer] [facility] CD:380212 Emergency [id number] KOLTONBARTOLOME REESELIN 07/06/2012 07/06/2012 Active [facility] CD:525236 Emergency [id number] Jamil Urbina 07/28/2012 Active [facility] CD:132744 Emergency [id number] RICHARD MOJICA 08/05/2012 Active [facility] CD:777242 Emergency [id number] RICHARD MOJICA 08/09/2012 Active [employer] [facility] CD:511109 Emergency [id number] Efrain Ortiz 12/03/2012 12/03/2012 Active [facility] CD:934944 Emergency [id number] Efrain Ortiz 01/30/2013 01/30/2013 Active [facility] CD:183030 Emergency [id number] Osama Santino 01/30/2013 01/31/2013 Active [facility] CD:545760 Emergency [id number] Efrain Ortiz 03/05/2013 03/05/2013 Active [facility] CD:781225 Emergency [id number] SAMUEL LINDSAYGENESIS 03/06/2013 Active [employer] [place] CD:296529 Emergency [id number] Osama Santino 03/07/2013 03/07/2013 Active [facility] CD:813357 Emergency [id number] KOLTON PETE 03/12/2013 03/12/2013 Active [employer] [place]. [facility] CD:948418 Emergency [id number] Efrain Oritz 03/12/2013 03/12/2013 Active [employer] CD:802059 Emergency [id number] Samuel Bryantse 03/13/2013 03/13/2013 Active [facility] CD:042487 Emergency [id number] Rafaelriddhipatricia Oliva 03/18/2013 03/18/2013 Active [facility] CD:629187 Emergency [id number] Rafal Queen 2013 2013 Active [employer] CD:144075 Emergency [id number] Osama Santino 05/06/2013 05/06/2013 Active [facility] CD:104275 Emergency [id number] Parviz Pinedo 05/06/2013 05/06/2013 Active [employer] [place]. [facility] CD:495988 Emergency [id number] Samuel Gomez 05/24/2013 Active [facility] CD:253743 Clinic ( Outpatient) [id number] Enrrique Baron 05/26/2013 Active [facility] CD:976475 Clinic ( Outpatient) [id number] Enrrique Baron 05/27/2013 [facility] CD:571293 Emergency [id number] Samuel Bennett 05/29/2013 05/29/2013 [facility] CD:796683 Emergency [id number] Oscar De 06/07/2013 06/07/2013 [facility] CD:022633 Emergency [id number] Richard Montes 03/01/2014 [facility] Emergency [id number] Enrrique Baron 03/01/2014 03/03/2014 [facility] CD:91981013 Clinic ( Outpatient) [id number] Demetris Hernandez 03/03/2014 Active [facility] [id number] Demetris Hernandez 03/03/2014 03/04/2014 [facility] [id number] Demetris Steinoechar 03/31/2014 04/01/2014 [facility] CD:412214 Emergency [id number] SAMUEL DANIEL 04/13/2014 Active [facility] CD:864638 Emergency [id number] DENISE MORELAND 04/18/2014 Active [facility]. [facility] CD:66921437 Clinic ( Outpatient) [id number] Demetris Hernandez 04/27/2014 Active [facility] [id number] Demetris Steinoechar 04/27/2014 04/28/2014 [facility] CD:35785756 Clinic ( Outpatient) [id number] Demetris Hernandez 04/28/2014 Active [facility] CD:16113454 Clinic ( Outpatient) [id number] Demetris Hernandez 05/11/2014 Active [facility] [id number] Demetris Hernandez 05/11/2014 05/12/2014 [facility] CD:987890 Emergency [id number] Dereck Fiore 06/29/2014 06/29/2014 Active [facility] CD:826382 Emergency [id number] Richard Montes 06/30/2014 Active [facility] Cancel/No Show [id number] Demetris Mejíachar 07/14/2014 07/12/2014 [facility] CD:152327 Emergency [id number] Dereck Fiore 07/26/2014 07/26/2014 Active [facility] CD:306212 Emergency [id number] Cosme Gaitan 09/30/2014 09/30/2014 Active [facility] CD:109967 Emergency [id number] Rafal Queen 10/05/2014 10/05/2014 Active [facility] CD:278601 Emergency [id number] Dereck Fiore 10/06/2014 10/06/2014 Active [facility] CD:130196 Emergency [id number] Oscar De 11/18/2014 11/18/2014 Active [facility] CD:213066 Emergency [id number] Cruzito Kelsy 12/26/2014 12/26/2014 Active [facility] CD:793602 Emergency [id number] Rafal Queen 12/28/2014 12/28/2014 Active [facility] Emergency [id number] Samson Yeung 02/25/2015 02/26/2015 [facility] Emergency [id number] Ronny Stone 02/27/2015 02/27/2015 [facility] Inpatient Admission [id number] Carolina Kiara 05/201503/01/2015 [facility] Emergency [id number] Dena Dioni 12/13/2015 12/13/2015 [facility] CD:895735 Inpatient [id number] Easton Houston 07/31/2016 Active [facility] Procedures Procedure Code Date Perfomer Comments Source No data available for this section [facility] Plan of Care Social History Assessment and Plan Date Assessment and Plan Source Author:Slime New Title:ED Discharge Instructions Date:12/12/[address] [address] Emergency Department [phone] Emergency Department Discharge Instructions Name : MAURIZIO [...] talk to your doctor or call [facility] [place] [employer] at [phone] ([phone]). If you have thoughts about committing suicide or otherwise hurting yourself, please call 911 or call Crisis Line at . If your primary care provider is a [facility] physician or you would like to establish care at [facility] please call [phone] to schedule an appointment. If you are a new patient you may have to wait up to 60 days for a scheduled appointment. If you need to establish care sooner, you may want to look for other options. PAYMENT GUIDELINES FOR [facility] PATIENTS: [facility] now requires all self-pay and partial [facility] discount patients to make a down payment before receiving non-emergency care. In most cases, your down payment will be 25 percent of your charges. If you currently receive a 100% [facility] discount , these new guidelines do not apply to you. We accept khan, check, Visa and MasterCard. If you are a self-pay patient and would like to discuss discounted services or Medicaid, please contact [facility] s [facility] at [phone]. Remember: at the time of your appointment, you must present a photo ID as well as your insurance card or the required down payment, or your appointment will be rescheduled for another day. If you have commercial insurance and [facility] is not on your list of providers, please call your insurance company and make your follow-up appointment with your PCP or a provider who takes your insurance. MAURIZIO PARRA has been given the following list of patient education materials, prescriptions and follow-up instructions: Follow-up Instructions: With: Address: When: [facility] [address] [place] [phone] Work (1) With: Address: When: Follow up with primary care provider Comments: Take tylenol or ibuprofen as needed for pain. Follow up with your primary care doctor and Neurosurgery clinic. Return for any concerns. Patient Education Materials : Financial Assistance [facility] (No Appointment Necessary) Fourth floor, off the clinic elevators (former patient registration) [address] [place] [id number] Thursday/Thursday 7:30 am - 6:00 pm Thursday, and Thursday 7:30 am - 5:00 pm Prescription leaflets: Prescriptions : No Prescriptions given this visit Comment: Your Upcoming Appointments/Edith proximas citas Please bring all home medications to every visit with us at [facility]. Your safety and education around medications [...] Riggins Special Instructions: Patient requested that his fiance, Swapna Montero be contacted at the number provided to make the appointment as he has memory difficulties Future Order: Yes Stop Date/Time: 12/12/15 23:03:00 Michelle Balderas Major procedures/tests performed during your ED visit: Laboratory Orders No laboratory orders were placed. Radiology Orders Name Status Details CT Head w/o Cont [id number] Completed Stat, 12/12/15 20:31:00, headache, h/o hydrocephalus, [...] RESULTS! Take Charge of Your Health with [facility] Sign up today for [facility] for access to your health records 09/02. [employer] allows you to: Request an appointment Check your lab results Communicate with your providers and care team See provider notes from your visit View immunization records View current medication Sign up Today! Ask your healthcare provider or a [facility] associate for help, or email [email or web address] I MAURIZIO PARRA, have received the attached patient education materials/instructions and have verbalized understanding/Yo recibi educacion, materiales instrucciones de paciente y se me a explicado verbalmente para mi propia comprension: Patient/Guardian Signature Date Firma de paciente/guardian Fecha Witness Signature Date Firma de Testigo Fecha [facility] Author:Michelle Balderas Title:Neurosurgery consultation Date:12/12/15 Patient: MAURIZIO PARRA Age: 35 years [...] and the shunt was eventually removed at [facility] by Dr. Tao. Since that time, the patient has had chronic headaches, bilaterally retro-orbital. The headaches have become worse over the past 5-6 days. Denies fevers, chills or nuchal rigidity. Patient reports nausea and vomiting. Patient denies any recent change to his vision, although states that he just got new glasses yesterday. Patient was seen at [facility] ED in 2014 for similar complaints [...] Surgeries" - 4 at , 3 at [facility] - unsure of dates and exact procedures [...] No deformity. Normal gait. Integumentary: Warm, Dry, [place]. Neurologic: Alert, Oriented, Normal sensory, Normal motor function, No focal defects, Cranial Nerves II-XII are grossly intact. Psychiatric: Cooperative, Appropriate mood & affect. Review / Management CT Head w/o Cont [id number] - 02/25/15 15:09 Impression: No evidence of acute intracranial pathology. THIS IS AN ELECTRONICALLY VERIFIED REPORT 02/25/2015 3:25 PM: Oscar Casillas M.D. Oscar Casillas M.D.GR:robert 03:24 PMT: 02/25/201503:25 pmRI MRI Brain w/o Cont [id number] - 03/01/15 09:26 Impression: 1. Stable dilation [...] the above examination CT Head w/o Cont [id number] - 12/12/15 20:49 Impression: 1. Enlargement of [...] VERIFIED REPORT 12/12/2015 9:33 PM: Jaime Ashford M.D.TB:alexandria 09:29 PMT: 09:33 pmBO Impression and [...] to measure opening pressure would be appropriate. Addendum by Sandip Riggins on December 13, 2015 15:00 [facility] Author:Joe Tubbs Title:Headache *ED Date:12/12/15 Impression and Plan Aching headache ([id number] R51) Hydrocephalus ([id number] G91) Plan Condition: Improved, Stable. Patient was given the following educational materials: Financial Assistance ( Custom). Follow up with: Follow up with primary care provider Take tylenol or ibuprofen as needed for pain. Follow up with your primary care doctor and Neurosurgery clinic. Return for any concerns. ; ; [facility]. Counseled: Patient, Regarding diagnosis, Regarding diagnostic results, Regarding treatment plan, Patient indicated understanding of instructions. Notes: Seen with Dr Wheatley. [facility] Author:Bianca Navarro Title:Admission H&P * Date:02/27/15 Patient: MAURIZIO PARRA Age: 34 years Sex: Male : [birth year] Associated Diagnoses: None Author: Bianca Navarro Chief Complaint 02/26/15 19:27 "It's worse, I was here last night". Reports here last noc for MORILLO and had LP done. "From my eyes to my back, everything hurts". Reports pain worsened after getting home from ER visit at [place]. + blurry vision. Pt. went to [facility] this morning History of Present Illness Mr. Parar is a 34 y/o male with past [...] list: All Problems Anxiety / SNOMED CT 32736113 / Confirmed Hydrocephalus / SNOMED CT 845475803 / Confirmed Migraines / SNOMED CT 74706500 / Confirmed Histories Past Medical History: All Problems Anxiety / SNOMED CT 12800318 / Confirmed Hydrocephalus / SNOMED CT 253016152 / Confirmed Migraines / SNOMED CT 82639425 / Confirmed Procedure history: No active procedure history items have been selected or recorded. Past Surgical History: MRSA debridement of R axilla and L thigh "7 Cerebral Surgeries" - 4 at , 3 at [facility] - unsure of dates and exact procedures [...] Medicine - Requesting outside records from and [facility] for Discharge summaries, med recs, and imaging. Addendum by Bianca Navarro on 27 February 2015 04:11 Agree with above assessment and plan. In [...] MRI brain. Will request records from and [facility] for further look into hydrocephalus and associated procedures. Will order U/A, CXR and sputum culture as pt with productive cough + leukocytosis. Hold on abx therapy for now. Shelly Payton MD PGY -2 Addendum by Shelly Payton on 27 February 2015 06:43 continues to complain of severe 10/10 headache [...] much. Gerda Irizarry Internal Medcine PGY1 Addendum by Gerda Irizarry on 27 February 2015 12:26 Attending Statement: I personally interviewed and examined Mr. Parra on 06/03 for his admission evaluation. I confirmed the history and PE as noted above by Dr. Navarro, Dr. Payton, and Dr. Irizarry. I reviewed the data with the team and directed the plan. Carolina Craig MD microbiology instructor Addendum by Carolina Craig on 27 February 2015 16:51 [facility] Author:Fer Barber Title:General Medical Problem *ED Date:02/26/15 Impression and Plan MORILLO (headache) (ICD9 784.0) Plan Condition: Stable. Disposition: Admit: to Inpatient Unit. Counseled: Patient, Regarding diagnosis, Regarding diagnostic results, Regarding treatment plan, Regarding prescription, Patient indicated understanding of instructions. Notes: Fer Barber MD, EM PGY-2 . [facility] Author:Rosa Casey Title:Inpatient Clinical Summary Date:03/01/15 [facility] Patient Discharge Instructions Visit Information/Informacion de Visita Name/Nombre:MAURIZIO PARRA Date of /Fecha de Nacimiento: 1980 12:00 AM Current Date/Time/Fecha/Hora Actual: 03/01/15 13:51:39 [facility] Provider/Proveedor de Clinica: Resident Provider: Bianca Navarro Attending Provider: Carolina Craig Discharge Diagnosis/Diagnstico al ser dado de david: Analgesic rebound headache ; Chronic migraine without aura; Headache, worsening; Hydrocephalus; Post lumbar puncture headache [facility] would like to thank you for allowing us to assist you with your healthcare needs. The following includes patient education materials and information regarding your injury/illness. [facility] [place] quisieran agradecerle por permitirnos ayudarlo con edith necesidades sobre franco cuidado de shai. A continuacin incluimos materiales para la educacin al paciente e informacin sobre franco nick/enfermedad. Discharge Information Discharge Vitals: No Language Spoken: Bahamian Alcohol Still Operator Needed at Discharge: No Pain Present Upon [...] appointment within two weeks, please call for [facility] or for [facility]. Por favor llame al [facility] o [facility] , en chidi no lo hayan llamado dentro de dos semanas para darle oracio ammon. Your Upcoming Appointments/Edith proximas citas Please bring all home medications to every visit with us at [facility]. Your safety and education around medications [...] Acetaminophen is a pain reliever and fever well point pumping supervisor. Butalbital is in a group of drugs [...] or call the Poison Help line at [phone]- [phone]. An overdose of acetaminophen, butalbital, and caffeine [...] may report side effects to FDA at 6-404-ZYT-5828. What other drugs will affect acetaminophen, butalbital, [...] acetaminophen, butalbital, and caffeine, including prescription and splr-nlv-mvzlxpv medicines, vitamins, and herbal products. Tell each [...] to ensure that the information provided by [employer]') is accurate, up-to-date, and complete, but no guarantee is made to that effect. Drug information contained herein may be time sensitive. [employer] information has been compiled for use by healthcare practitioners and consumers in the [place] and therefore [employer] does not warrant that uses outside of the [place] are appropriate, unless specifically indicated otherwise. [employer]'s drug information does not endorse drugs, diagnose patients or recommend therapy. [employer] drug information is an informational resource designed [...] effective or appropriate for any given patient. [employer] does not assume any responsibility for any aspect of healthcare administered with the aid of information [employer] provides. The information contained herein is not intended to cover all possible uses, directions, precautions, warnings, drug interactions, allergic reactions, or adverse effects. If you have questions about the drugs you are taking, check with your doctor, nurse or pharmacist. Copyright 1702-3637 [employer]. Version: 6.01. Revision Date: 2012. propranolol (pro [...] low blood sugar--headache, hunger, weakness, sweating, confusion, irritability , dizziness, fast heart rate, or feeling jittery; low blood sugar in a baby--pale skin, blue or purple skin, sweating, fussiness , crying, not wanting to eat, feeling cold, drowsiness, weak or shallow breathing (breathing may stop for short periods), seizure (convulsions), or loss of consciousness; or severe skin [...] may report side effects to FDA at 2-648-VSS-1451. What other drugs will affect propranolol? Tell your doctor about all medicines you use, and those you start or stop using during your treatment with propranolol, especially: a blood thinner--warfarin, Coumadin, Jantoven; an antidepressant--amitriptyline, clomipramine, desipramine, imipramine, and others; drugs to treat high blood pressure or a prostate disorder--doxazosin, prazosin , terazosin; heart or blood pressure medicine--amiodarone, diltiazem, propafenone, quinidine, verapamil, and others; NSAIDs (nonsteroidal anti-inflammatory drugs)--aspirin, ibuprofen (Advil, Motrin), naproxen (Aleve), celecoxib, diclofenac, indomethacin, meloxicam, and others; or steroid medicine-prednisone and others. This list is not complete. Other drugs may interact with propranolol, including prescription and fulc-bdp-sijzkzx medicines, vitamins, and herbal products. Not all [...] to ensure that the information provided by [employer]') is accurate, up-to-date, and complete, but no guarantee is made to that effect. Drug information contained herein may be time sensitive. [employer] information has been compiled for use by healthcare practitioners and consumers in the [place] and therefore [employer] does not warrant that uses outside of the [place] are appropriate, unless specifically indicated otherwise. [employer]'s drug information does not endorse drugs, diagnose patients or recommend therapy. [employer]'s drug information is an informational resource designed [...] effective or appropriate for any given patient. [facility] does not assume any responsibility for any aspect of healthcare administered with the aid of information [facility] provides. The information contained herein is not intended to cover all possible uses, directions, precautions, warnings, drug interactions, allergic reactions, or adverse effects. If you have questions about the drugs you are taking, check with your doctor, nurse or pharmacist. Copyright 4961-[address] [facility] Hospital[facility] Consulting GroupQURIUM [employer]. Version: 05.21. Revision Date: 2013. Patient Instructions/Instrucciones para el Paciente All smokers are encouraged to stop smoking. If you would like help, talk to your doctor or call [facility] [place] [employer] at [phone] ([phone]). If you have thoughts about committing suicide [...] Released: 04/14/2009 Document Revised: 09/27/2012 Document Reviewed: ExitCare Patient Information 2013 [employer] [place]. Take Charge of Your Health with [employer] Sign up today for [employer] for access to your health records 09/02. [employer] allows you to: Request an appointment Check your lab results Communicate with your providers and care team See provider notes from your visit View immunization records View current medication Sign up Today! Ask your healthcare provider or a [facility] associate for help, or email Huan [email or web address] [email or web address] new mexico medical [email or web address] Regional MedCenter Author:Gerda Irizarry Title:Discharge Summary Date:03/01/15 Discharge Information Date of Admission: Admitted [...] Discharge Diet: Diet Type: Regular. Activity: Ambulate. [facility] Author:Dereck Vu Title:Neuro F/u Date:03/01/15 Patient: MAURIZIO PARRA Age: 34 years [...] LP 02/25/2015: Pt is left lateral decubitus, 56pcO4H openning pressure, bloody tap but normal protein, [...] cause of hydrocephalus will be ramachandran for jail therapy success. 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 Would recommend continue pain management and avoid chronic opioid use if possible. Patient was advised about the plan, including follow up with PCP and consider pain clinic referral in the future if needed. Addendum by Darwin Ledbetter on 01 March 2015 11:56 [facility] Author:Carolina Craig Title:Medicine Progress Note Date:02/28/15 Plan 1. Headache 2/2 Opioid-induced vs [...] and directed the plan. Carolina Craig MD microbiology instructor [facility] Family History Value Date Source Advance Directives Order Name Results Value Date Source
--- OUTSIDE RECORDS SUMMARY | 2016-10-12 11:58 | XMS REPORT ---
Author VALERY Latif Organization eClinicalWorks Address Unknown Phone Unavailable Care Team Providers Care Surgical Rn Name Role Phone VALERY GIBSON CP Unavailable Allergies No Known Allergies Problems Problem Type Condition Code Onset Dates Condition Status Problem Memory loss R41.3 Active Problem Anxiety F41.9 Active Problem Other chronic pain G89.29 Active Problem Nonfunctioning ventriculoperitoneal shunt, initial encounter T85.09XA Active Problem Pain in right shoulder M25.511 Active Problem Nausea R11.0 Active Medications No Known Medications Results No Known Results Summary Purpose eClinicalWorks Submission
--- OUTSIDE RECORDS SUMMARY | 2016-10-12 11:59 | XMS REPORT ---
Author VALERY Latif Organization [employer] Address Unknown Phone Unavailable Care Team Providers Care Pilot Steam Yacht Name Role Phone VALERY GIBSON CP Unavailable Allergies No Known Allergies Problems Problem Type Condition Code Onset Dates Condition Status Assessment Nonfunctioning ventriculoperitoneal shunt, initial encounter T85.09XA Active Assessment Left upper quadrant pain R10.12 Active Problem Nonfunctioning ventriculoperitoneal shunt, initial encounter T85.09XA Active Assessment Hemorrhoids, unspecified hemorrhoid type K64.9 Active Medications Medication Code System Code Instructions Start Date End Date Status Dosage Percocet [facility] [address]-23 10-325 MG Orally every 6 hrs December 27, 2015 1 tablet as needed MS Contin [facility] [address]-85 30 MG Orally every 12 hrs January 02, 2016 1 tablet Procedures Procedure Coding System Code Date Office Visit, Est Pt., Level 3 CPT-4 25849 January 23, 2016 Vital Signs Date/Time: January 23, 2016 Cardiac Monitoring Heart Rate 60 bpm Weight 154.6 lbs Height 69 in BMI 22.83 Index Blood Pressure Diastolic 60 mmHg Blood Pressure Systolic 100 mmHg Results No Known Results Summary Purpose eClinicalWorks Submission
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
--- OUTSIDE RECORDS SUMMARY | 2016-10-12 11:59 | XMS REPORT ---
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
--- OUTSIDE RECORDS SUMMARY | 2016-10-12 11:59 | XMS REPORT ---
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
--- OUTSIDE RECORDS SUMMARY | 2016-10-12 11:59 | XMS REPORT ---
Author Author VALERY GIBSON Organization [facility] Address [address] [place] [address] Care Team Providers Care Garment Looper Name Role Phone VALERY GIBSON Unavailable PROBLEMS Type Condition ICD9-CM Code MID09-YM Code Onset Dates Condition Status SNOMED Code Assessment Other chronic pain G89.29 May, Active 17091103 Assessment Head and face pain R51 May, Active 23497889 Problem Other chronic pain G89.29 Active 17674336 Problem Memory loss R41.3 Active 33265835 Problem Nausea R11.0 Active 196663132 Problem Nonfunctioning ventriculoperitoneal shunt, initial encounter T85.09XA Active 611106851 Problem Anxiety F41.9 Active 04640469 Problem Pain in right shoulder M25.511 Active 86711705 ALLERGIES Substance Reaction Event Type Date Status N.K.D.A. Unknown Non Drug Allergy May, Unknown SOCIAL HISTORY No smoking Hx information available PLAN OF CARE VITAL SIGNS Height 69 in 2016-06-09 Weight 155.1 lbs 2016-06-09 Heart Rate 86 bpm 2016-06-09 Respiratory Rate 18 2016-06-09 BMI 22.90 kg/m2 2016-06-09 Blood pressure systolic 126 mmHg 2016-06-09 Blood pressure diastolic 72 mmHg 2016-06-09 MEDICATIONS Medication Instructions Dosage Frequency Start Date End Date Duration Status Prozac 20 mg Orally Once a day 1 capsule in the morning 24h May, Active MS Contin 30 MG Orally every 12 hrs 1 tablet 12h May, 28 days Active Percocet 10-325 MG Orally every 6 hrs 1 tablet as needed 6h May, 28 days Active RESULTS No Results PROCEDURES Procedure Date Ordered Related Diagnosis Body Site Office Visit, Est Pt., Level 3 Jun 09, 2016 IMMUNIZATIONS No Known Immunizations
--- OUTSIDE RECORDS SUMMARY | 2016-10-12 11:59 | XMS REPORT ---
Author VALERY Latif Organization e[employer]Works Address Unknown Phone Unavailable Care Team Providers Care Inspector Wreath Name Role Phone VALERY GIBSON CP Unavailable [...]
--- OUTSIDE RECORDS SUMMARY | 2016-10-12 11:59 | XMS REPORT ---
Author VALERY Latif Organization e[employer] Address Unknown Phone Unavailable Care Team Providers Care Visual Effects Editor Name Role Phone VALERY GIBSON CP Unavailable Allergies No Known Allergies Problems Problem Type Condition Code Onset Dates Condition Status Problem Nausea R11.0 Active Problem Nonfunctioning ventriculoperitoneal shunt, initial encounter T85.09XA Active Problem Pain in right shoulder M25.511 Active Medications Medication Code System Code Instructions Start Date End Date Status Dosage Zithromax Z-Olvin [facility] [address]-13 250 MG Orally Once a day Apr 30, 2016 May 05, 2016 2 tablets on the first day, then 1 tablet daily for 4 days Results No Known Results Summary Purpose eClinicalWorks Submission
--- OUTSIDE RECORDS SUMMARY | 2016-10-12 11:59 | XMS REPORT ---
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
--- OUTSIDE RECORDS SUMMARY | 2016-10-12 11:59 | XMS REPORT ---
Author VALERY Latif Organization eClinicalWorks Address Unknown Phone Unavailable Care Team Providers Care Park Interpretive Specialist Name Role Phone VALERY GIBSON CP [...] Instructions Start Date End Date Status Dosage Prozac [facility] [address]-68 20 mg Orally Once a day May 29, 2016 1 capsule in the morning Klonopin [facility] [address]-96 1 MG Orally Twice a day May 29, 2016 1 tablet MS Contin [facility] [address]-62 30 MG Orally every 12 hrs January 02, 2016 1 tablet Percocet [facility] [address]-20 10-325 MG Orally every 6 hrs December 27, 2015 1 tablet as needed Procedures Procedure Coding System Code Date Office Visit, Est Pt., Level 3 CPT-4 79133 May 29, 2016 Vital Signs Date/Time: May 29, 2016 Cardiac Monitoring Heart Rate 88 bpm Weight 146.6 lbs Height 69 in BMI 21.65 Index Blood Pressure Diastolic 72 mmHg Blood Pressure Systolic 122 mmHg Results No Known Results Summary Purpose eClinicalWorks Submission
--- OUTSIDE RECORDS SUMMARY | 2016-10-12 11:59 | XMS REPORT ---
Author Author VALERY GIBSON Organization 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
--- OUTSIDE RECORDS SUMMARY | 2016-10-12 11:59 | XMS REPORT ---
Author Author VALERY GIBSON [facility] Address [address] [place] [address] Care Team Providers Care Nurse Esthetician Name Role Phone VALERY GIBSON Unavailable PROBLEMS Type Condition ICD9-CM Code QDL75-UP Code Onset Dates Condition Status SNOMED Code Problem Pain in right shoulder M25.511 Active 19847779 Problem Nausea R11.0 Active 467418642 Problem Nonfunctioning ventriculoperitoneal shunt, initial encounter T85.09XA Active 308925373 ALLERGIES Unknown Allergies SOCIAL HISTORY No smoking Hx information available PLAN OF CARE VITAL SIGNS MEDICATIONS Unknown Medications RESULTS No Results PROCEDURES No Known procedures IMMUNIZATIONS No Known Immunizations
--- OUTSIDE RECORDS SUMMARY | 2016-10-12 11:59 | XMS REPORT ---
Author VALERY Latif Organization e[employer] Address Unknown Phone Unavailable Care Team Providers Care Electric Organ Inspector And Repairer Name Role Phone VALERY GIBSON CP Unavailable Allergies No Known Allergies Problems Problem Type Condition Code Onset Dates Condition Status Problem Nonfunctioning ventriculoperitoneal shunt, initial encounter T85.09XA Active Medications No Known Medications Results No Known Results Summary Purpose eClinicalWorks Submission
--- OUTSIDE RECORDS SUMMARY | 2016-10-12 11:59 | XMS REPORT ---
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
--- OUTSIDE RECORDS SUMMARY | 2016-10-12 11:59 | XMS REPORT ---
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
--- OUTSIDE RECORDS SUMMARY | 2016-10-12 11:59 | XMS REPORT ---
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
--- OUTSIDE RECORDS SUMMARY | 2016-10-12 11:59 | XMS REPORT ---
Author VALERY Latif Organization [employer] Address Unknown Phone Unavailable Care Team Providers Care Underpresser Hand Name Role Phone VALERY GIBSON CP Unavailable Allergies, Adverse Reactions, Alerts Substance Reaction Event Type N.K.D.A. 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 Active Problem Pain in right shoulder M25.511 Active Assessment Pain of left hand M79.642 Active Assessment Other chronic pain G89.29 Active Assessment Pain in right hand M79.641 Active Medications Medication Code System Code Instructions Start Date End Date Status Dosage MS Contin [facility] [address]-92 30 MG Orally every 12 hrs January 02, 2016Apr 1 tablet Percocet [facility] [address]-13 10-325 MG Orally every 6 hrs December 27, 2015 May 12, 2016 1 tablet as needed Procedures Procedure Coding System Code Date No Charge CPT-4 04409 Apr 14, 2016 Office Visit, Est Pt., Level 3 CPT-4 97649 Apr 14, 2016 Vital Signs Date/Time: Apr 14, 2016 Cardiac Monitoring Heart Rate 64 bpm Weight 152.4 lbs Height 69 in BMI 22.50 Index Blood Pressure Diastolic 90 mmHg Blood Pressure Systolic 120 mmHg Results Name Result Date Reference Range Unit Abnormality Flag [employer] Summary Purpose eClinicalWorks Submission
--- OUTSIDE RECORDS SUMMARY | 2016-10-12 11:59 | XMS REPORT ---
Author Author VALERY GIBSON Organization [facility] [place] Address [address] [place] [address] Care Team Providers Care Mold Repair Technician Name Role Phone VALERY GIBSON Unavailable PROBLEMS Type Condition ICD9-CM Code AZN88-[id number] Code Onset Dates Condition Status SNOMED Code Problem Pain in right shoulder M25.511 Active 70522496 Problem Nausea R11.0 Active 535886555 Problem Nonfunctioning ventriculoperitoneal shunt, initial encounter T85.09XA Active 860980804 Assessment Head and face pain R51 20 Mar, 2016 Active [id number] ALLERGIES Unknown Allergies SOCIAL HISTORY No smoking [...]
--- OUTSIDE RECORDS SUMMARY | 2016-10-12 11:59 | XMS REPORT ---
Author VALERY Latif Organization [employer] Address Unknown Phone Unavailable Care Team Providers Care Attending Pathologist Name Role Phone VALERY GIBSON CP Unavailable Allergies No Known Allergies Problems Problem Type Condition Code Onset Dates Condition Status Assessment Nonfunctioning ventriculoperitoneal shunt, initial encounter T85.09XA Active Problem Nonfunctioning ventriculoperitoneal shunt, initial encounter T85.09XA Active Medications Medication Code System Code Instructions Start Date End Date Status Dosage MS Contin [facility] [address]-51 30 MG Orally every 12 hrs January 02, 2016 1 tablet Percocet [facility] [address]-83 10-325 MG Orally every 6 hrs December 27, 2015 1 tablet as needed Results No Known Results Summary Purpose [employer] Submission
== END 2016-10-10 12:35 | disposition home or self-care (01) ==
LOC: DELPENDDIS → SDC 07:28
PROVIDERS: ATTEND Surgery
DX: K81.1 Chronic cholecystitis (principal)
CPT/HCPCS: 88304

== ENCOUNTER 2016-12-30 10:48 | Emergency (ER) | payer MEDICAID, OTHER ==
[~2016-12-30] VITALS: Ht 175.3 cm; Wt 69.5 kg
[~2016-12-30 10:48] MED LIST changes: +OXYC-191 PO
[2016-12-30] MEDS ORDERED: HYDR50CA3 (11:02)
[2016-12-30] MEDS ORDERED: QUET100T69 (11:02)
[2016-12-30] MEDS ORDERED: ONDA8TAB12 (11:02)
[2016-12-30] MEDS ORDERED: TURM500C4 PO (11:04)
[2016-12-30] MEDS ORDERED: OMEP20TA7 PO (11:04)
[2016-12-30] MEDS ORDERED: MULT-593 PO (11:04)
[2016-12-30] MEDS ORDERED: KETOROLAC 60 MG/2 ML VIAL IM ONE (11:45)
[2016-12-30] MEDS ORDERED: AMIT25TA9 PO (11:50)
--- NOTE | 2016-12-30 11:50 | ED Headache ---
General Chief Complaint: Head/Cervical Problems Stated Complaint: HEADACHE Nursing Triage Note: Patient reports headache since yesterday, patient reports history of headaches, patient reports he used to take morphine and percocet for pain but doesn't any longer and it made him nauseated Nursing Sepsis Screen: No Definite Risk Source: patient, family, old records Exam Limitations: no limitations History of Present Illness Time seen by provider: 11:15 Initial Comments This 36-year-old man presents to the emergency room with complaints of exacerbation of chronic headache. Patient has history of shunt placement and removal dating as far back as 2011. He has history of hydrocephalus. He has recently been taken off of morphine and Percocet which he states is because of nausea side effects. His primary care provider, Amalia Gibson, has not replaced his narcotics with another medication for pain management. He reports the pain is intense through the center of his head from ear to ear and radiating down his neck. The pain is not new but he states it is now not manageable off of the narcotics. He reports having severe pain with any movement. He has seen neurologists and neurosurgeons in the past. His present neurosurgeon is in [place]. He complains of associated fatigue and dizziness. Patient also reports a history of traumatic brain injury. Patient reports his primary care team is working on a referral to a spray painting machine operator. Allergies and Home Medications Allergies Coded Allergies: No Known Drug Allergies (Unverified , 10/06/16) Home Medications Amitriptyline HCl 25 Mg Tablet, 25 MG PO HS, #14 Prescribed by: AISHWARYA WEBB on 12/30/16 1150 Donepezil HCl 10 Mg Tablet, 20 MG PO DAILY, (Reported) Fluoxetine HCl 40 Mg Capsule, 60 MG PO DAILY, (Reported) Hydroxyzine Pamoate 50 Mg Capsule, #120 (Reported) Multivitamin with Minerals 1 Each Tablet, 1 EACH PO, (Reported) Omeprazole 20 Mg Tablet.dr, 20 MG PO, (Reported) Ondansetron HCl 8 Mg Tablet, #60 (Reported) Quetiapine Fumarate 100 Mg Tablet, #90 (Reported) Turmeric Root Extract 500 Mg Capsule, 500 MG PO, (Reported) Constitutional: no symptoms reported Eyes: No Symptoms Reported Ears, Nose, Mouth, Throat: no symptoms reported Respiratory: no symptoms reported Cardiovascular: no symptoms reported Gastrointestinal: see HPI Genitourinary: no symptoms reported Musculoskeletal: no symptoms reported Skin: no symptoms reported Psychiatric/Neurological: See HPI Past Idwlmvp-Uxpmun-Xzorus Hx Patient Social History Alcohol Use: Denies Use Recreational Drug Use: Yes Drug of Choice: THC Smoking Status: Former Smoker Type Used: Cigars, Cigarettes Recent Foreign Travel: No Contact w/Someone Who Travel: No Recent Infectious Disease Expo: No Recent Hopitalizations: No Seasonal Allergies Seasonal Allergies: Yes Surgeries HX Surgeries: Yes (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 SHUNTS/REVISIONS/REPLACEMENTS AND REMOVAL) Surgeries: Neurological Respiratory Hx Respiratory Disorders: No Cardiovascular Hx Cardiac Disorders: No Neurological Hx Neurological Disorders: Yes (HYDROCEPHALUS) Neurological Disorders: Headaches /Migraines, Traumatic Brain Injury Reproductive System Hx Reproductive Disorders: No Sexually Transmitted Disease: No HIV/AIDS: No Genitourinary Hx Genitourinary Disorders: No Gastrointestinal Hx Gastrointestinal Disorders: Yes Gastrointestinal Disorders: Gastroesophageal Reflux, Gall Bladder Disease Musculoskeletal Hx Musculoskeletal Disorders: Yes (SHOULDER PAIN) Endocrine Hx Endocrine Disorders: No HEENT HX ENT Disorders: Yes (GLASSES) Loss of Vision: Denies Hearing Impairment: Denies Cancer Hx Cancer: No Psychosocial Hx Psychiatric Problems: Yes Behavioral Health Disorders: Anxiety Integumentary HX Skin/Integumentary Disorder: No Blood Transfusions Hx Blood Disorders: No Adverse Reaction to a Blood Tr: No (N/A) Physical Exam Vital Signs Vital Sign - Last 12Hours 12/30/16 10:57 Temp 98.2 Pulse 97 Resp 18 B/P (MAP) 148/69 Pulse Ox 99 Capillary Refill : Less Than 3 Seconds General Appearance: WD/WN, no apparent distress HEENT: PERRL/EOMI, normal ENT inspection, TMs normal, pharynx normal Neck: normal inspection Cardiovascular: regular rate, rhythm, no edema, no murmur Respiratory: lungs clear, normal breath sounds, no respiratory distress, no accessory muscle use Gastrointestinal: normal bowel sounds, non tender, soft Extremities: normal inspection, no pedal edema Psychiatric: alert, oriented x 3 Crainal Nerves: normal hearing, normal speech, PERRL Coordination/Gait: normal finger to nose, normal gait Motor/Sensory: no motor deficit, no sensory deficit Skin: normal color, warm/dry Progress/Results/Core Measures Results/Orders My Orders Orders - AISHWARYA BURROUGHS MD Ketorolac Injection (Toradol Injection) (12/30/16 11:45) Medications Given in ED Vital Signs/I&O Vital Sign - Last 12Hours 12/30/16 12/30/16 10:57 11:53 Temp 98.2 98.2 Pulse 97 97 Resp 18 18 B/P (MAP) 148/69 Pulse Ox 99 99 Blood Pressure Mean: 95 Progress Note : Progress Note Patient has no focal neurologic deficits. Pain is not new. Therefore, repeat imaging was not felt appropriate at this time. Because the patient is dealing with a chronic pain management issue, I informed him I would discuss with his primary care provider before making any decisions about prescriptions. He did not object. I discussed the case with Amalia Gibson. She reported he was removed from narcotics because of a narcotic contract violation with smoking marijuana. Patient did not deny this violation but did try to make excuses. I informed him that the ER is not the appropriate place to seek chronic pain management. He received a Toradol injection. After discussion with Amalia, I prescribed a short course of amitriptyline. I advised the patient to pursue the pain management consult through [facility] in to seek follow-up with his neurologist and neurosurgeon. Departure Impression Impression: Primary Impression: Chronic headaches Qualified Codes: R51 - Headache Disposition: 01 HOME, SELF-CARE Condition: Stable/Unchanged Departure-Patient Inst. Decision time for Depature: 11:48 Referrals: JLUIS SERRANO DO (PCP) Primary Care Physician AMALIA GIBSON (Family) Primary Care Physician Patient Instructions: CHRONIC PAIN Add. Discharge Instructions: Start amitriptyline as prescribed for chronic headache treatment. Follow-up with Amalia as soon as possible for further chronic pain management. You may take ibuprofen up to 600 mg every 6 hours as needed for pain as well as Tylenol (acetaminophen) up to 1000 mg every 6 hours as needed. Return to care if symptoms worsen. All discharge instructions reviewed with patient and/or family. Voiced understanding. Scripts Amitriptyline HCl (Amitriptyline HCl) 25 Mg Tablet 25 MG PO HS, #14 TAB Prov: AISHWARYA BURROUGHS MD 12/30/16 Copy Copies To 1: AMBREEN GILLIS MD, JOSHUA T MD Dec 30, 2016 11:50
[2016-12-30 11:53] VITALS: BP 148/69
== END 2016-12-30 11:52 | disposition home or self-care (01) ==
LOC: EDUNIT# 10:48 → ER 10:51
DX: R51 Headache (principal); G89.29 Other chronic pain; F41.9 Anxiety disorder, unspecified; Z87.891 Personal history of nicotine dependence; Z87.820 Personal history of traumatic brain injury; Z86.69 Personal history of other diseases of the nervous system and sense organs
CPT/HCPCS: 99282

== ENCOUNTER 2017-02-04 10:17 | Emergency (ER) | payer OTHER ==
[~2017-02-04] VITALS: Ht 175.3 cm; Wt 77.1 kg
[~2017-02-04 10:17] MED LIST changes: +AMIT25TA9 PO; +HYDR50CA3; +MULT-593 PO; +OMEP20TA7 PO; +ONDA8TAB12; +QUET100T69; +TURM500C4 PO
[2017-02-04] MEDS ORDERED: IBUP-2055 PO (10:35)
[2017-02-04] MEDS ORDERED: ACET325T38 PO (10:35)
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
[2017-02-04 10:50] LABS: BASOPHILS # (AUTO) 0.1 10^3/uL (0.0-0.1); BASOPHILS % (AUTO) 0 % (0-10); EOSINOPHILS # (AUTO) 0.1 10^3/uL (0.0-0.3); EOSINOPHILS % (AUTO) 1 % (0-10); LYMPHOCYTES # (AUTO) 2.5 X 10^3 (1.0-4.0); LYMPHOCYTES % (AUTO) 15 % (12-44); MEAN CORPUSCULAR HEMOGLOBIN 30 PG (25-34); MEAN CORPUSCULAR HGB CONC 34 G/DL (32-36); MEAN CORPUSCULAR VOLUME 89 FL (80-99); MEAN PLATELET VOLUME 8.7 FL (7.4-10.4); MONOCYTES # (AUTO) 1.4 X 10^3 (0.0-1.0); MONOCYTES % (AUTO) 9 % (0-12); NEUTROPHILS # (AUTO) 11.9 X 10^3 (1.8-7.8); NEUTROPHILS % (AUTO) 75 % (42-75); PLATELET COUNT 261 10^3/uL (130-400); RED BLOOD COUNT 4.82 10^6/uL (4.35-5.85); RED CELL DISTRIBUTION WIDTH 13.3 % (10.0-14.5); WHITE BLOOD COUNT 15.9 10^3/uL (4.3-11.0)
--- NOTE | 2017-02-04 11:00 | Diagnostic Imaging Report ---
PROCEDURE: CT head without contrast. TECHNIQUE: Multiple contiguous axial images were obtained through the brain without the use of intravenous contrast. INDICATION: Headache. Comparison with 06/07/16. FINDINGS: There is stable moderate hydrocephalus with dilatation of the third ventricle and mild dilatation of the fourth ventricle seen. No definite obstructive lesion identified. There is area of encephalomalacia in the medial aspect of the right frontal lobe superiorly. This could potentially relate to a prior shunting procedure This is also stable. No intracranial hemorrhage. No extra-axial fluid collection identified. The calvarium, the paranasal sinuses and orbits appear grossly unremarkable. In the right scalp region there is a right sided tube fragment that is probably related to a incomplete removal of a prior shunt tube. IMPRESSION: Stable moderate communicating hydrocephalus. Dictated by: Dictated on workstation # [id number]
[2017-02-04 11:09] LABS: ALANINE AMINOTRANSFERASE 39 U/L (0-55); ALBUMIN 4.3 GM/DL (3.2-4.5); ALCOHOL < 10 MG/DL (<10); ANION GAP 10 MMOL/L (5-14); ASPARTATE AMINO TRANSFERASE 20 U/L (5-34); BILIRUBIN,TOTAL 0.2 MG/DL (0.1-1.0); BLOOD UREA NITROGEN 9 MG/DL (7-18); BUN/CREATININE RATIO 10; CALCIUM 9.1 MG/DL (8.5-10.1); CARBON DIOXIDE 23 MMOL/L (21-32); CHLORIDE 106 MMOL/L (98-107); GFR ESTIMATED > 60; GLUCOSE 108 MG/DL (70-105); SODIUM 139 MMOL/L (135-145); TOTAL PROTEIN 7.4 GM/DL (6.4-8.2)
[2017-02-04] MEDS ORDERED: ORPHENADRINE 60 MG/2 ML (NORFLEX) AMP IM ONE (11:15)
[2017-02-04] MEDS ORDERED: KETOROLAC 60 MG/2 ML VIAL IM ONE (11:15)
[2017-02-04] MEDS ORDERED: diphenhydrAMINE 50 MG/ML INJ (BENADRYL) IM ONE (11:15)
[2017-02-04 11:25] VITALS: BP 147/86
[2017-02-04 11:25] LABS: BAND NEUTROPHILS 2 %; BASOPHILS % (MANUAL) 0 %; EOSINOPHILS % (MANUAL) 0 %; LYMPHOCYTES % (MANUAL) 15 %; NEUTROPHILS % (MANUAL) 79 %
--- OUTSIDE RECORDS SUMMARY | 2017-02-11 21:46 | XMS REPORT | Continuity of Care Document ---
Author Author [employer] Organization [facility] Address Unknown Phone Unavailable Care Team Providers Care Manager Front Name Role Phone [employer] Unavailable Unavailable Problems Problem Status Onset Date Classification Date Reported Comments Source Headache (finding) 2016 Diagnosis 12/12/2016 [facility] Acute diarrhea (disorder) Diagnosis 08/04/2016 [facility] Intestinal obstruction co-occurrent and due to decreased peristalsis (disorder ) 07/31/2016 Diagnosis 08/04/2016 [facility] Discharge Diagnosis: History of hydrocephalus 12/13/2015 12/17/2015 [facility] Discharge Diagnosis: Aching headache 12/12/20152015 [facility] Chronic migraine without aura, without mention of intractable migraine, without mention of status migrainosus 02/28/20152014 [facility] Drug induced headache, not elsewhere classified 02/28/2015 03/06/2015 [facility] Reaction to spinal or lumbar puncture 02/28/20152014 [facility] Headache 02/27/2015 03/06/2015 [facility] Obstructive hydrocephalus 03/06/2015 [facility] Opioid type dependence, in remission 12/26/2014 Diagnosis 12/31/2014 [facility] Headache 11/18/2014 Diagnosis 11/23/2014 [facility] Painful respiration 2014 Diagnosis 10/05/2014 [facility] Post-traumatic headache, unspecified 07/26/2014 Diagnosis 07/31/2014 [facility] Headache 05/11/2014 Diagnosis 05/15/2014 [facility] Pain in limb 03/31/2014 Diagnosis 04/04/2014 [facility] Personal history of other disorders of nervous system and sense organs 03/03/2014 Diagnosis 03/07/2014 [facility] Tobacco user (finding) Resolved 05/27/2013 Problem 2016 Updated by Discern Expert based on Social History Documentation Added by Discern Expert based on Social History Documentation [facility], [facility], [facility] Headache (finding) Active Problem 01/14/2017 [facility], [facility], [facility] Headache disorder (disorder) Active Problem 01/14/2017 [facility], [facility] Anxiety (finding) Active Problem 12/17/2015 [facility] Hydrocephalus (disorder) Active Problem 12/17/2015 [facility] Leukocytosis (disorder) Active Problem 12/17/2015 [facility] Migraine (disorder) Active Problem 12/17/2015 [facility] Anxiety state, unspecified 03/06/2015 [facility] Leukocytosis, unspecified 03/06/2015 [facility] Cannabis abuse, unspecified use 03/06/2015 [facility] History of tobacco use 03/06/2015 [facility] Unemployment 03/06/2015 [facility] Final: HEADACHES WO SKILLED NURSING 03/06/2015 [facility] Other specified visual disturbances 03/02/2015 [facility] Medications Medication Details Route Status Patient Instructions Ordering Provider Order Date Source No Known Medications No known medications Active [facility] Tdap 0.5 mL, SUSP, IM, ONCE, NOW, 03/09/11 13:58:00, Stop date 03/09/11 13:58:00 Inactive [facility] propranolol 20 mg oral tablet
</br>=40 mg, 2 tab, PO, BID, # 120 tab, 0 Refill(s), tab Active [facility] Acetaminophen 300 MG / butalbital 50 MG / Caffeine 40 MG Oral Capsule
</br>1 cap, PO, Q4H, PRN Headache, # 10 cap, 1 Refill(s) Inactive [facility] Acetaminophen 325 MG / Hydrocodone Bitartrate 5 MG Oral Tablet [Meno 5/325]
</br>1 tab, tab, ONCE, PO, Start date 03/01/15 11:52 :00, Stop date 03/01/15 11:52:00
</br>Notes: Not to exceed 4000 mg of acetaminophen TOTAL in 24 hours. TIME CRITICAL MED IF SCHEDULED Inactive [facility] Allergies, Adverse Reactions, Alerts Substance Category Reaction Severity Reaction type Status Date Reported Comments Source Morphine Assertion headache Drug intolerance [facility] morphine drug intolerance headache Adverse Reaction Active [facility] Immunizations Immunization Date Given Site Status Last Updated Comments Source Tdap 03/09/2011 Left Deltoid tetanus/diphth/pertuss (Tdap) adult/adol [facility], [facility], [facility], [facility] [place] tetanus/diphth/pertuss (Tdap) adult/adol 03/09/2011 completed [facility]. No data available for this section No data available for this section [facility] Results Order Name Results Value Reference [...] and the shunt was eventually removed at [facility] by Dr. Tao. Since that time, the patient has had chronic headaches, bilaterally retro-orbital. The headaches have become worse over the past 5-6 days. Denies fevers, chills or nuchal rigidity. Patient reports nausea and vomiting. Patient denies any recent change to his vision, although states that he just got new glasses yesterday. Patient was seen at [facility] ED in 2014 for similar complaints at [...] Surgeries" - 4 at , 3 at [facility] - unsure of dates and exact [...] No deformity. Normal gait. Integumentary: Warm, Dry, [place]. Neurologic: Alert, Oriented, Normal sensory, Normal motor function, No focal defects, Cranial Nerves II-XII are grossly intact. Review / Management CT Head w/o Cont [id number] - 02/25/15 15:09 Impression: No evidence of acute intracranial pathology. THIS IS AN ELECTRONICALLY VERIFIED REPORT 02/25/2015 3:25 PM: Oscar Casillas M.D. Oscar Casillas M.D.GR:robert 03:24 PMT: 02/25/201503:25 pmRI MRI Brain w/o Cont [id number] - 03/01/15 09:26 Impression: 1. Stable dilation [...] the above examination CT Head w/o Cont [id number] - 12/12/15 20:49 Impression: 1. Enlargement of [...] AN ELECTRONICALLY VERIFIED REPORT 2015 9:33 PM: Norma Marina M.D. Norma Marina M.D.TB:alexandria D: 201509:29 PMT: 12/12/201509:33 pmBO Impression [...] measure opening pressure would be appropriate. 12/12/[address] [facility] [address] Head w/o Cont [id number] CT Head w/o Cont [id number] Name: MAURIZIO PARRA CT Scan Accession Number Exam Exam Date/Time Ordering Physician [id number] CT Head w/o Cont 12/12/2015 20:49 CDT Joe Tubbs CPT code 99173 Reason For Exam (CT Head w/o Cont) [...] REPORT 12/12/2015 9:33 PM: Jaime Ashford M.D. TB:alexandria 09:29 PM 09:33 pm Name: MAURIZIO PARRA CT Scan Accession Number Exam Exam Date/Time Ordering Physician [id number] CT Head w/o Cont 12/12/2015 20:49 CDT Joe Tubbs Report BOR Final Report Dictating Physician: Norma Marina ELECTRONIC SIGNATURE Signed: 12.12.2015 21:36 Signed by: Norma Marina Technologist: Hollie Forbes RT(R)(CT),Dale aYo RT(R) 12/12/2015 [facility] ED Note - Provider ED Note [...] He understood.. Impression and Plan Aching headache ([id number] R51) Hydrocephalus ([id number] G91) Plan Condition: Improved, Stable. Patient was given the following educational materials: Financial Assistance ( Custom). Follow up with: Follow up with primary care provider Take tylenol or ibuprofen as needed for pain. Follow up with your primary care doctor and Neurosurgery clinic. Return for any concerns. ; ; [facility]. Counseled: Patient, Regarding diagnosis, Regarding [...] meds , dispo Dena Wheatley MD 12/12/2015 [facility] Discharge Summary Discharge Summary Patient: MAURIZIO [...] had been seen the previous day at [facility] for similar complaint. Pt states his [...] with his local PCP. 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 Would recommend continue pain management and avoid chronic opioid use if possible. Patient was advised about the plan, including follow up with PCP and consider pain clinic referral in the future if needed. 03/01/2015 [facility] MRI Brain wo Cont [id number] MRI Brain wo Cont [id number] Name: MAURIZIO PARRA MRI Accession Number Exam Exam Date/Time Ordering Physician [id number] MRI Brain w/o Cont 03/01/2015 09:26 CDT Edie Gerda Carrie CPT code 38573 Reason For Exam (MRI Brain w/o Cont) headache Report Procedure: MRI Brain wo Cont [id number] Reason for exam: headache ; history of [...] Technologist: Ale Rider, RT(R)(CT)(MR),Serene Cam, RT(R)(MR) 03/01/2015 [facility] Student Note - Education Only Student [...] had been seen the previous day at [facility] for similar complaint. Pt states his [...] Dilaudid 1 mg Q3H. Throughout stay 03/01/2015 [facility] Student Note - Education Only Student [...] had been seen the previous day at [facility] for similar complaint. Pt states his [...] of pain management, requesting Throughout stay 03/01/2015 [facility] Urinalysis UA Leuk Est Negative (02/28/15 11:40 AM) Negative 02/28/2015 [facility] Urine Drug Screen U Barbiturates Negative *NA* (02/28/15 11:40 AM) 2014 [facility] Urine culture bacterial No growth at 24 hours 2014 [facility] Neurology Documents Neurology Documents Patient: MAURIZIO PARRA Age: 34 years Sex: Male : [birth year] Associated Diagnoses: None Author: Dereck Vu Chief Complaint 02/27/15 15:54 "It's worse, I was here last night". Reports here last noc for [facility] and had LP done. "From my eyes to my back, everything hurts". Reports pain worsened after getting home from ER visit at [place]. + blurry vision. Pt. went to [facility] this morning History of Present Illness Mr. [...] Surgeries" - 4 at , 3 at [facility] - unsure of dates and exact [...] LP 02/25/2015: Pt is left lateral decubitus, [id number] openning pressure, bloody tap but normal protein, [...] without noticable pain response. 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 Recs: - MRI brain - [...] and lower extremities. Coordination is intact to [id number] bilaterally. DTRs: 2+ in biceps, triceps, patellar reflex bilaterally, 1+ ankle reflex bilaterally. Babinski sign is absent, clonus is not elicited. Gait was not assessed Imaging: CT head non-contrast: No acute abnormality, chronic hydrocephalus (similar findings compared to previous CT scans at [facility]). Assessment: Patient with history of chronic daily [...] contrast to evaluate for intracranial abnormalities. 02/28/2015 [facility] Student Note - Education Only Student [...] 0.71 mg/dL LOW BUN/Creat Ratio 15.5 GFR -Canadian >90 mL/min/1.73m2 GFR Non -Canadian >90 mL/min/1.73m2 Calcium 9.0 mg/dL Osmo (Calc) 285 mOsm/kg 3/cmm 6/cmm Hemoglobin 14.1 g/dL Hematocrit 43.5 % MCV 95.8 FL MCH 31.0 PG XR Chest 2 Views [id number] - 02/27/15 05:25 Impression: No acute cardiopulmonary process.Dr. Andrew CasperDr. Andrew Casper and the staff radiologist have jointly reviewed and interpreted the above examination CT Head w/o Cont [id number] - 02/25/15 15:09 Impression: No evidence of acute intracranial pathology. THIS IS AN ELECTRONICALLY VERIFIED REPORT 02/25/2015 3:25 PM: Osacr Casillas M.D. Oscar Casillas M.D.GR:robert 03:24 PMT: [...] brain surgery starting in 2006 at and [facility], records requested -Pt will need outpatient f/u with Neuro -Adjust Dilaudid to 2 mg Q2H -Order UDS, CRP Leukocytosis -WBC 9.0 trending down, afebrile -Order UA, sputum culture, blood culture -Will not start abx at this time Anxiety -Continue home medication Valium 10 mg 02/28/2015 [facility] Inpatient Progress Note Inpatient Progress Note Patient: MAURIZIO PARRA Age: 34 years Sex: Male : [birth year] Associated Diagnoses: None Author: Carolina Craig Subjective continues to complain of headache nad nausea.Headache is at 8/ 10.Dilaudid dose decreased to 2mg Q3H this morning since nurses called in to say he has been really somnolent with 2.5mg. Records from and [facility] yet to be recieved. Objective General: [...] and directed the plan. Carolina Craig MD art instructor 02/28/2015 [facility] Chemistry Potassium 4.6 mmol/ L 3.6 - 5.1 02/28/2015 [facility] Hematology Baso % 0.6 % 0.0 - 2.0 02/28/2015 [facility] GS Specimen rejected: Contains >25 squamous epithelial cells. Please resubmit. Person Notified: Yanique Luzmaria on 02/28/15 at 0850 on [phone]. 02/28/2015 [facility] Inpatient Progress Note Inpatient Progress [...] Yola Castañeda M.D. PGY-1, Internal Medicine Pager [phone] 02/27/2015 [facility] Blood culture bacterial No growth at 5 days. 2014 [facility] Blood culture bacterial No growth at 5 days. 2014 [facility] Student Note - Education Only Student Note - Education Only Patient: MAURIZIO PARRA Age: 34 years Sex: Male : 78 Associated Diagnoses: None Author: Jackeline Tavera Subjective Mr. Parra states his headache has gotten worse since last night. He describes the pain as excruciating /10. He reports pain subsided to 2/10 after [...] mg/dL LOW BUN/Creat Ratio 9.8 LOW GFR -Canadian >90 mL/min/1.73m2 GFR Non -Canadian >90 mL/min/1.73m2 Calcium 9.3 mg/dL Osmo (Calc) 290 mOsm/kg 3/cmm HI 6/cmm Hemoglobin 13.9 g/dL LOW Hematocrit 41.8 % CT Head w/o Cont [id number] - 02/25/15 15:09 Impression: No evidence of acute intracranial pathology. THIS IS AN ELECTRONICALLY VERIFIED REPORT 02/25/2015 3:25 PM: Jaime Brower M.D.GR:robert 03:24 PMT: 02/25/201503:25 pmRI XR Chest [...] brain surgery starting in 2006 at and [facility], records requested -Pt will need outpatient f/u with Neuro -Start Caffeine pills -Adjust Dilaudid to 2.5 mg Q2H -Order UDS, CRP Leukocytosis -WBC elevated 16.8, afebrile -Order UA, sputum culture, blood culture -Will not start abx at this time Anxiety -Continue home medication Valium 10 mg 02/27/2015 [facility] XR Chest 2 Views [id number] XR Chest 2 Views [id number] Name: MAURIZIO PARRA Diagnostic Radiology Accession Number Exam Exam Date/Time Ordering Physician [id number] XR Chest 2 Views 02/27/2015 05:25 CDT Bianca Navarro CPT code 03712 Reason For Exam (XR Chest 2 Views) Cough, leukocytosis Report Study: XR Chest 2 Views [id number] Reason for exam: Cough, leukocytosis Comparison: None. [...] Faby Neal Technologist: Shanell Nassar RT(R)(CT) 02/27/2015 [facility] Blood Bank [facility] ABORH TYPE A POS 02/27/2015 [facility] Blood Bank [facility] TYPE A POS 02/27/2015 [facility] Chemistry CO2 23 mmol/L 22 - 32 02/27/2015 [facility] Hematology NRBC Auto 0.0 / 100WBC 02/27/2015 [facility] Special Hematology Sed Rate 5 mm/h 1 - 10 02/27/2015 [facility] History and Physical History and Physical Patient: MAURIZIO PARRA Age: 34 years Sex: Male : 78 Associated Diagnoses: None Author: Bianca Navarro Chief Complaint 02/26/15 19:27 "It's worse, I was here last night". Reports here last noc for [facility] and had LP done. "From my eyes to my back, everything hurts". Reports pain worsened after getting home from ER visit at [place]. + blurry vision. Pt. went to [facility] this morning History of Present Illness Mr. [...] list: All Problems Anxiety / SNOMED CT 90015185 / Confirmed Hydrocephalus / SNOMED CT 909490484 / Confirmed Migraines / SNOMED CT 41811784 / Confirmed Histories Past Medical History: All Problems Anxiety / SNOMED CT 64918398 / Confirmed Hydrocephalus / SNOMED CT 480148841 / Confirmed Migraines / SNOMED CT 69927608 / Confirmed Procedure history: No active procedure history items have been selected or recorded. Past Surgical History: MRSA debridement of R axilla and L thigh "7 Cerebral Surgeries" - 4 at , 3 at [facility] - unsure of dates and exact [...] Medicine - Requesting outside records from and [facility] for Discharge summaries, med recs, and [...] MRI brain. Will request records from and [facility] for further look into hydrocephalus [...] and directed the plan. Carolina Craig MD art instructor 02/27/2015 [facility] ED Note - Provider ED Note [...] after getting home from ER visit at [place]. + blurry vision. Pt. went to [facility] this morning 02/25/15 12:18 Chief Complaint HERE [...] list: All Problems Anxiety / SNOMED CT 29953232 / Confirmed Hydrocephalus / SNOMED CT 243114999 / Confirmed Migraines / SNOMED CT 17489443 / Confirmed. Physical Examination Vital Signs Vital [...] mg/dL LOW BUN/Creat Ratio 9.8 LOW GFR -Canadian >90 mL/min/1.73m2 GFR Non -Canadian >90 mL/min/1.73m2 Calcium 9.3 mg/dL Osmo (Calc) 290 mOsm/kg 3/cmm HI 6/cmm Hemoglobin 13.9 g/dL LOW Hematocrit 41.8 % MCV 92.9 FL MCH 30.8 PG MCHC 33.2 % 3/cmm MPV 8.4 FL RDW 14.5 % Gran % 79.4 % HI Lymph % 13.7 % LOW [place] % 6.0 % Eos % 0.4 % [...] 02/27/15 02:13, ONCE . Notes: Spoke [facility] admitting team. Informed of patient course and [...] Pt is currently sleeping in room 02/26/2015 [facility] CSF Studies CSF Protein 28.0 mg/dL 15.0 - 45.0 2014 [facility] GS No WBC's seen. No organisms seen. Due to insufficient volume, sensitivity of microbial culture may be compromised. 02/26/[address] [facility] [address] Head w/o Cont [id number] CT Head w/o Cont [id number] Name: MAURIZIO PARRA CT Scan Accession Number Exam Exam Date/Time Ordering Physician [id number] CT Head w/o Cont 02/25/2015 15:09 CDT Rell Watson CPT code 50578 Reason For Exam (CT Head w/o Cont) [...] Casillas M.D. GR:robert 03:24 PM 03:25 pm RIL Final Report Dictating Physician: Oscar Casillas ELECTRONIC SIGNATURE Signed: 02.25.2015 15:28 Signed by: Oscar Casillas Technologist: Heidi Mackay RT(R)(CT) 02/25/2015 [facility] ED Note - Provider ED Note - Provider Patient: MAURIZIO PARRA Age: 34 years Sex: Male : [birth year] Associated Diagnoses: None Author: aPrish Contreras Basic Information History source: Patient. Additional [...] 02/25/15 13:14 Radiology: CT Head w/o Cont [id number] (Order): Stat, 02/25/15 13:14, headache, h/o hydrocephalus, ED Location 20 , Orders Pharmacy: Dilaudid (Order): 1 mg, IVPush, ONCE . Results review: Lab results : All Laboratory 02/25/15 19:17 CSF Appearance Clear CSF Xanthochromia Negative CSF WBC Count 1 /cmm (Modified) CSF RBC Count 9 /cmm HI CSF Protein 28.0 mg/dL CSF Glucose 66 mg/dL . Radiology results: Emergency physician interpretation: WNL, CT Head w/o Cont [id number] - 02/25/15 15:09 Impression: No evidence of acute intracranial pathology. THIS IS AN ELECTRONICALLY VERIFIED REPORT 02/25/2015 3:25 PM: Oscar Casillas M.D. Oscar Casillas M.D.GR:robert 03:24 PMT: 02/25/201503:[address] Head w/o cont IMPRESSION: No evidence of acute intracranial pathology. THIS IS AN ELECTRONICALLY VERIFIED REPORT 02/25/2015 3:25 PM: Oscar Casillas M.D. Oscar Casillas M.D. GR:gr 03:24 PM 03:25 pm RIL Signature Line Final Report Reexamination/ Reevaluation Time: 02/25/15 15:00:00 . Interventions: [facility]: Dilaudid (Order): 1 mg, IVPush, ONCE . Notes: Patient states he gets 2mg Dilaudid, requesting another dose. ERNIE to Dr. Contreras at shift change. Pending CT Head and records from and [facility]. . Time: 02/25/15 15:36:00 . Interventions: [facility]: Benadryl (Order): 25 mg, IVPush, ONCE Compazine (Order): 10 mg, IVPush, ONCE Toradol (Order): 30 mg, IVPush, ONCE Sodium Chloride 0.9% (Normal Saline bolus) (Order): 1,000 mL, IVPB, ONCE . Time: 02/25/15 17:15:00 . Assessment: Patient states pain uncontrolled. Agrees to LP and was told will get dilaudid for pain control. - Iván Contreras. Interventions: [facility] Laboratory: CSF culture (Order): Collect Routine, 02/25/15 [...] to go home. Marii cazares phone number [phone] or [phone] d/w Dr. Strauss who agrees with this [...] the following educational materials: Follow up with: [facility] You were seen here today [...] pt tolerated procedure. Sent to lab to [facility] for xanthocrhomia / leukocytosis: negative. Pain controlled, will dc to f/u with PCP in several days , advised further f/u with Neurology or Neurosurgery advisable. Attending signature: Arian Guzmán. Attending Medical Decision Making Orders Launch Orders Diagnosis: *Lumbar Puncture, Diagnostic (Prof Chg-[id number]) (Order): 1, 02/25/15 18:26, Episodic headache, 02/25/15 18:26 , Launch Orders Diagnosis: *Level 4 ED Visit (Prof [id number]) (Order): 1, 02/25/15 20:40, Episodic headache , 02/25/15 20:40 . 02/25/2015 [facility] Vital Signs Vital Sign Value Date Comments Source Systolic BP 121 mmHg 2015 [facility] Diastolic BP 74 mmHg 2015 [facility] Mean Arterial Pressure 90 mmHg 12/13/2015 [facility] Oxygen Therapy Room air
</br>(12/12/15 11:08 PM) 12/13/2015 [facility] Oxygen Saturation 98 % 2015 [facility] Temperature Oral 98.1 [degF] 12/13/2015 [facility] Resp. Rate 18 BRMIN 2015 [facility] Heart Rate 82 bpm 12/13/2015 [facility] Systolic BP 118 mmHg 2015 [facility] Diastolic BP 73 mmHg 2015 [facility] Oxygen Saturation 97 % 2015 [facility] Oxygen Therapy Room air
</br>(12/12/15 7:41 PM) 12/13/2015 [facility] Temperature Route Oral
</br>(12/12/15 7:41 PM) 12/13/2015 [facility] Temperature Oral 97.9 [degF] 12/13/2015 [facility] Heart Rate 80 bpm 12/13/2015 [facility] Resp. Rate 18 BRMIN 2015 [facility] Heart Rate 55 bpm 03/01/2015 [facility] BP Site Left Arm
</br>(03/01/15 8:21 AM) 03/01/2015 [facility] Systolic BP 124 mmHg 2014 [facility] Diastolic BP 53 mmHg 2014 [facility] Oxygen Saturation 97 % 2014 [facility] Oxygen Therapy Room air
</br>(03/01/15 8:21 AM) 03/01/2015 [facility] Temperature Oral 98.0 [degF] 03/01/2015 [facility] Resp. Rate 18 BRMIN 2014 [facility] Mean Arterial Pressure 77 mmHg 03/01/2015 [facility] Temperature Oral 97.8 [degF] 03/01/2015 [facility] Systolic BP 128 mmHg 2014 [facility] Diastolic BP 70 mmHg 2014 [facility] Oxygen Saturation 97 % 2014 [facility] BP Site Left Arm
</br>(03/01/15 4:39 AM) 03/01/2015 [facility] Oxygen Therapy Room air
</br>(03/01/15 4:39 AM) 03/01/2015 [facility] Cuff Size Adult Long Cuff
</br>(03/01/15 4:39 AM) 03/01/2015 [facility] Resp. Rate 20 BRMIN 2014 [facility] Heart Rate 60 bpm 03/01/2015 [facility] Oxygen Saturation 96 % 2014 [facility] Oxygen Therapy Room air
</br>(02/28/15 11:41 PM) 03/01/2015 [facility] Resp. Rate 20 BRMIN 2014 [facility] Systolic BP 122 mmHg 2014 [facility] Diastolic BP 62 mmHg 2014 [facility] Heart Rate 65 bpm 03/01/2015 [facility] Temperature Oral 98.3 [degF] 03/01/2015 [facility] Cuff Size Adult Long Cuff
</br>(02/28/15 11:41 PM) 03/01/2015 [facility] BP Site Right Arm
</br>(02/28/15 11:41 PM) 03/01/2015 [facility] Cuff Size Adult Long Cuff
</br>(02/28/15 7:47 PM) 03/01/2015 [facility] Mean Arterial Pressure 89 mmHg 02/28/2015 [facility] Mean Arterial Pressure 85 mmHg 02/28/2015 [facility] Mean Arterial Pressure 95 mmHg 02/27/2015 [facility] Heart Rate 92 bpm 02/27/2015 [facility] Oxygen Saturation 98 % 2014 [facility] Temperature Oral 98.7 [degF] 02/27/2015 [facility] Oxygen Therapy Room air
</br>(02/27/15 2:01 PM) 02/27/2015 [facility] Resp. Rate 18 BRMIN 2014 [facility] BP Site Right Arm
</br>(02/27/15 2:01 PM) 02/27/2015 [facility] Systolic BP 124 mmHg 2014 [facility] Diastolic BP 80 mmHg 2014 [facility] Oxygen Therapy Room air
</br>(02/27/15 11:45 AM) 02/27/2015 [facility] Oxygen Saturation 95 % 2014 [facility] Oxygen Therapy Room air
</br>(02/27/15 10:45 AM) 02/27/2015 [facility] Oxygen Saturation 95 % 2014 [facility] BP Site Right Arm
</br>(02/27/15 8:39 AM) 02/27/2015 [facility] Cuff Size Adult Regular Cuff
</br>(02/27/15 8:39 AM ) 02/27/2015 [facility] Systolic BP 145 mmHg 2014 [facility] Diastolic BP 71 mmHg 2014 [facility] Mean Arterial Pressure 96 mmHg 02/27/2015 [facility] Resp. Rate 18 BRMIN 2014 [facility] Heart Rate 73 bpm 02/27/2015 [facility] Temperature Oral 97.5 [degF] 02/27/2015 [facility] Mean Arterial Pressure 86 mmHg 02/27/2015 [facility] Resp. Rate 18 BRMIN 2014 [facility] Heart Rate 57 bpm 02/27/2015 [facility] Systolic BP 123 mmHg 2014 [facility] Diastolic BP 67 mmHg 2014 [facility] Temperature Route Oral
</br>(02/26/15 9:41 PM) 02/27/2015 [facility] Temperature Oral 98.0 [degF] 02/27/2015 [facility] Temperature Route Oral
</br>(02/26/15 7:27 PM) 02/27/2015 [facility] BP Site Right Arm
</br>(02/25/15 6:59 PM) 02/25/2015 [facility] Mean Arterial Pressure 95 mmHg 02/25/2015 [facility] Cuff Size Adult Regular Cuff
</br>(02/25/15 6:59 PM ) 02/25/2015 [facility] Temperature Oral 97.6 [degF] 02/25/2015 [facility] Resp. Rate 18 BRMIN 2014 [facility] Heart Rate 64 bpm 02/25/2015 [facility] Systolic BP 125 mmHg 2014 [facility] Diastolic BP 80 mmHg 2014 [facility] Oxygen Saturation 96 % 2014 [facility] Systolic BP 129 mmHg 2014 [facility] Diastolic BP 72 mmHg 2014 [facility] Oxygen Therapy Room air
</br>(02/25/15 12:18 PM) 02/25/2015 [facility] Oxygen Saturation 99 % 2014 [facility] Temperature Oral 98.2 [degF] 02/25/2015 [facility] Resp. Rate 20 BRMIN 2014 [facility] Heart Rate 74 bpm 02/25/2015 [facility] Temperature Route Oral
</br>(02/25/15 12:18 PM) 02/25/2015 [facility] Encounters Location Location Details Encounter Type Encounter Number Reason For Visit Attending Provider ADM Date DC Date Status Source [facility] CD:281924 Emergency [id number] RICHARD MOJICA 07/04/2012 Active [employer] [facility] CD:240238 Emergency [id number] KOLTON REESELIN 07/06/2012 07/06/2012 Active [employer] [facility] CD:652009 Emergency [id number] Jamil Urbina 07/28/2012 Active [employer] [facility] CD:033235 Emergency [id number] RICHARD MOJICA 08/05/2012 Active [employer] [facility] CD:273080 Emergency [id number] RICHARD MOJICA 08/09/2012 Active [employer] [facility] CD:911306 Emergency [id number] Efrain Subramanianasani 12/03/2012 12/03/2012 Active [employer] [facility] CD:052724 Emergency [id number] Efrain Katasani 01/30/2013 01/30/2013 Active [employer] [facility] CD:314913 Emergency [id number] Osama Santino 01/30/2013 01/31/2013 Active [employer] [facility] CD:238329 Emergency [id number] Efrain Subramanianasani 03/05/2013 03/05/2013 Active [employer] [facility] CD:247566 Emergency [id number] SAMUEL HARGENESIS 03/06/2013 Active [employer] [facility] CD:561555 Emergency [id number] Osama Santino 03/07/2013 03/07/2013 Active [employer] [facility] CD:688223 Emergency [id number] KOLTON PETE 03/12/2013 03/12/2013 Active [employer] [facility] CD:994129 Emergency [id number] Efrain Subramanianasajose l 03/12/2013 03/12/2013 Active [employer] [facility] CD:072285 Emergency [id number] Samuel Sabrina 03/13/2013 03/13/2013 Active [employer] [facility] CD:946058 Emergency [id number] Rafaelmatty Hazel 03/18/2013 03/18/2013 Active [employer] [facility] CD:299122 Emergency [id number] Rafal Queen 2013 2013 Active [employer] [facility] CD:410996 Emergency [id number] Osama Santino 05/06/2013 05/06/2013 Active [employer] [facility] CD:512179 Emergency [id number] Parviz Pinedo 05/06/2013 05/06/2013 Active [facility] CD:722870 Emergency [id number] Samuel Dyer 05/24/2013 Active [employer] [facility] CD:314792 Clinic ( Outpatient) [id number] Enrrique Baron 05/26/2013 Active [employer] [facility] CD:944944 Clinic ( Outpatient) [id number] Enrrique Baron 05/27/2013 Active [employer] [facility] CD:062433 Emergency [id number] Samuel Bennett 05/29/2013 05/29/2013 [facility] [employer] [facility] CD:247611 Emergency [id number] Oscar Ngoel 06/07/2013 06/07/2013 Active [employer] [facility] CD:496065 Emergency [id number] Richard [place] 03/01/2014 Active [employer] [facility] Emergency [id number] Enrrique Baron 03/01/2014 03/03/2014 [employer] [facility] CD:[id number] Clinic ( Outpatient) [id number] Demetris Hernandez 03/03/2014 Active [facility] [id number] Demetris Hernandez 03/03/2014 03/04/2014 [facility] [id number] Demetris Hernandez 03/31/2014 04/01/2014 [facility] CD:787368 Emergency [id number] SAMUEL DANIEL 04/13/2014 Active [facility] CD:118759 Emergency [id number] DENISE MORELAND 04/18/2014 Active [facility] CD:75992258 Clinic ( Outpatient) [id number] Demetris Hernandez 04/27/2014 Active [facility] [id number] Demetris Hernandez 04/27/2014 04/28/2014 [facility] CD:93109271 Clinic ( Outpatient) [id number] Demetris Hernandez 04/28/2014 Active [facility] CD:10750444 Clinic ( Outpatient) [id number] Demetris Steinciara 05/11/2014 Active [facility] [id number] Demetris Hernandez 05/11/2014 05/12/2014 [facility] CD:404617 Emergency [id number] Dereck Fiore 06/29/2014 06/29/2014 Active [facility] CD:699643 Emergency [id number] Richard Jyoti 06/30/2014 Active [facility] Cancel/No Show [id number] Demetris Hernandez 07/14/2014 07/12/2014 [facility] CD:532559 Emergency [id number] Dereck Fiore 07/26/2014 07/26/2014 Active [facility] CD:065405 Emergency [id number] Cosme Gaitan 09/30/2014 09/30/2014 Active [facility] CD:521277 Emergency [id number] Rafal Queen 10/05/2014 10/05/2014 Active [facility] CD:813083 Emergency [id number] Dereck Fiore 10/06/2014 10/06/2014 Active [facility] CD:346045 Emergency [id number] Oscar De 11/18/2014 11/18/2014 Active [facility] CD:284841 Emergency [id number] Cruzito Tierney 12/26/2014 12/26/2014 Active [facility] CD:365267 Emergency [id number] Rafal Queen 12/28/2014 12/28/2014 Active [facility] Emergency [id number] Samson Yeung 02/25/2015 02/26/2015 [facility] Emergency [id number] Ronny Stone 02/27/2015 02/27/2015 [facility] Inpatient Admission [id number] Carolina Craig 05/201503/01/2015 [facility] Emergency [id number] Dena Wheatley 12/13/2015 12/13/2015 [facility] CD:224403 Inpatient [id number] Easton [place] 07/31/2016 Active [facility] CD:06039132 Clinic ( Outpatient) [id number] Demetris Steinoechar 12/04/2016 Active [facility] CD:02518238 Clinic ( Outpatient) [id number] Demetris Emiloen 12/05/2016 Active [facility] Clinic [id number] Demetris Emiloechar 12/08/2016 12/09/2016 [facility] CD:816405 Emergency [id number] Shan Neumann 01/09/2017 01/09/2017 Active [facility] CD:453537 Clinic ( Outpatient) [id number] Enrrique Baron 03/04/2017 Active [facility] Procedures Procedure Code Date Perfomer Comments Source gallbladder 10/10/2016 [facility] No data available for this section [facility] Plan of Care Social History Assessment and Plan Date Assessment and Plan Source Author:Slime New Title:ED Discharge Instructions Date:12/12/[address] [address] Emergency Department [phone] Emergency Department Discharge Instructions Name : MAURIZIO [...] talk to your doctor or call [employer] [place] [employer] at 2-790-PMGH-NOW ([phone]- [phone]). If you have thoughts about committing suicide or otherwise hurting yourself, please call 911 or call Crisis Line at . If your primary care provider is a [facility] physician or you would like to establish care at [facility] please call [phone] to schedule an appointment. If you are a new patient you may have to wait up to 60 days for a scheduled appointment. If you need to establish care sooner, you may want to look for other options. PAYMENT GUIDELINES FOR [facility] PATIENTS: [facility] now requires all self-pay and partial [facility] discount patients to make a down payment before receiving non-emergency care. In most cases, your down payment will be 25 percent of your charges. If you currently receive a 100% [facility] discount , these new guidelines do not apply to you. We accept khan, check, Visa and MasterCard. If you are a self-pay patient and would like to discuss discounted services or Medicaid, please contact [facility] s Financial Counseling Center at [phone]. Remember: at the time of your appointment, you must present a photo ID as well as your insurance card or the required down payment, or your appointment will be rescheduled for another day. If you have commercial insurance and [facility] is not on your list of providers, please call your insurance company and make your follow-up appointment with your PCP or a provider who takes your insurance. MAURIZIO PARRA has been given the following list of patient education materials, prescriptions and follow-up instructions: Follow-up Instructions: With: Address: When: [facility] [address] [place] [address] [id number] Work (1) With: Address: When: Follow up with primary care provider Comments: Take tylenol or ibuprofen as needed for pain. Follow up with your primary care doctor and Neurosurgery clinic. Return for any concerns. Patient Education Materials : Financial Assistance [facility] (No Appointment Necessary) Fourth floor, off the clinic elevators (former patient registration) [address] [place] [address] Thursday/Thursday 7:30 am - 6:00 pm Thursday, and Thursday 7:30 am - 5:00 pm Prescription leaflets: Prescriptions : No Prescriptions given this visit Comment: Your Upcoming Appointments/Edith proximas citas Please bring all home medications to every visit with us at [facility]. Your safety and education around medications is our goal. (Prescription , non prescription and herbal supplements) Date Time Location Appointment Type Provider No Appointments found Future Orders Placed Today/ Ordarturo anton Doctor Order Name Details Ordering Provider Clinic [...] Name Status Details CT Head w/o Cont [id number] Completed Stat, 12/12/15 20:31:00, headache, h/o hydrocephalus, [...] RESULTS! Take Charge of Your Health with [facility] Sign up today for [facility] for access to your health records 09/02. [facility] allows you to: Request an appointment Check your lab results Communicate with your providers and care team See provider notes from your visit View immunization records View current medication Sign up Today! Ask your healthcare provider or a [facility] associate for help, or email [email or web address] FIDEL Rod TODD MICHAEL, have received the attached patient education materials/instructions and have verbalized understanding/Yo recibi educacion, materiales instrucciones de paciente y se me a explicado verbalmente para mi propia comprension: Patient/Guardian Signature Date Firma de paciente/guardian Fecha Witness Signature Date Firma de Testigo Fecyisel [facility] Author:Mcihelle Balderas Title:Neurosurgery consultation Date:12/12/15 Patient: MAUIRZIO PARRA Age: 35 years Sex: Male : [...] and the shunt was eventually removed at [facility] by Dr. Tao. Since that time, the patient has had chronic headaches, bilaterally retro-orbital. The headaches have become worse over the past 5-6 days. Denies fevers, chills or nuchal rigidity. Patient reports nausea and vomiting. Patient denies any recent change to his vision, although states that he just got new glasses yesterday. Patient was seen at [facility] ED in 2014 for similar complaints at [...] Surgeries" - 4 at , 3 at [facility] - unsure of dates and exact [...] No deformity. Normal gait. Integumentary: Warm, Dry, [place]. Neurologic: Alert, Oriented, Normal sensory, Normal motor function, No focal defects, Cranial Nerves II-XII are grossly intact. Psychiatric: Cooperative, Appropriate mood & affect. Review / Management CT Head w/o Cont [id number] - 02/25/15 15:09 Impression: No evidence of acute intracranial pathology. THIS IS AN ELECTRONICALLY VERIFIED REPORT 02/25/2015 3:25 PM: Oscar Casillas M.D. Oscar Casillas M.D.GR:robert 03:24 PMT: 02/25/201503:25 pmRI MRI Brain w/o Cont [id number] - 03/01/15 09:26 Impression: 1. Stable dilation [...] the above examination CT Head w/o Cont [id number] - 12/12/15 20:49 Impression: 1. Enlargement of [...] scan is unchanged from previous scan in 2015. Patient's ventricles are slightly larger than his underlying edema but there is no evidence of active hydrocephalus. Suggested that the patient follow-up in the neurosurgery clinic for further evaluation. Possible lumbar puncture to measure opening pressure would be appropriate. Addendum by Sandip Riggins on December 13, 2015 15:00 [facility] Author:Joe Tubbs Title:Headache *ED Date:12/12/15 Impression and Plan Aching headache ([id number]) Hydrocephalus ([id number] G91) Plan Condition: Improved, Stable. Patient was given the following educational materials: Financial Assistance ( Custom). Follow up with: Follow up with primary care provider Take tylenol or ibuprofen as needed for pain. Follow up with your primary care doctor and Neurosurgery clinic. Return for any concerns. ; ; [facility]. Counseled: Patient, Regarding diagnosis, Regarding diagnostic results, Regarding treatment plan, Patient indicated understanding of instructions. Notes: Seen with Dr Wheatley. [facility] Author:Bianca Navarro Title:Admission H&P * Date:02/27/15 Patient: MAURIZIO PARRA Age: 34 years Sex: Male : 78 Associated Diagnoses: None Author: Bianca Navarro Chief Complaint 02/26/15 19:27 "It's worse, I was here last night". Reports here last noc for MORILLO and had LP done. "From my eyes to my back, everything hurts". Reports pain worsened after getting home from ER visit at [place]. + blurry vision. Pt. went to [facility] this morning History of Present Illness Mr. [...] list: All Problems Anxiety / SNOMED CT 84004426 / Confirmed Hydrocephalus / SNOMED CT 816214366 / Confirmed Migraines / SNOMED CT 40123420 / Confirmed Histories Past Medical History: All Problems Anxiety / SNOMED CT 18280885 / Confirmed Hydrocephalus / SNOMED CT 895644355 / Confirmed Migraines / SNOMED CT 28242344 / Confirmed Procedure history: No active procedure history items have been selected or recorded. Past Surgical History: MRSA debridement of R axilla and L thigh "7 Cerebral Surgeries" - 4 at , 3 at [facility] - unsure of dates and exact [...] Medicine - Requesting outside records from and [facility] for Discharge summaries, med recs, and imaging. Addendum by Bianca Nvaarro on 27 February 2015 04:11 Agree with [...] MRI brain. Will request records from and [facility] for further look into hydrocephalus [...] and directed the plan. Carolina Craig MD art instructor Addendum by Carolina Craig on 27 February 2015 16:51 [facility] Author:Fer Barber Title:General Medical Problem *ED Date:02/26/15 Impression and Plan MORILLO (headache) (ICD9 784.0) Plan Condition: Stable. Disposition: Admit: to Inpatient Unit. Counseled: Patient, Regarding diagnosis, Regarding diagnostic results, Regarding treatment plan, Regarding prescription, Patient indicated understanding of instructions. Notes: Fer Barber MD, EM PGY-2 . [facility] Author:Rosa Casey Title:Inpatient Clinical Summary Date:03/01/15 [facility] Patient Discharge Instructions Visit Information/Informacion de Visita Name/Nombre:MAURIZIO PARRA Date of /Fecha de Nacimiento: 1980 12:00 AM Current Date/Time/Fecha/Hora Actual: 03/01/15 13:51:39 [facility] Provider/Proveedor de Clinica: Resident Provider: Bianca Navarro Attending Provider: Carolina Craig Discharge Diagnosis/Diagnstico al ser dado de david: Analgesic rebound headache ; Chronic migraine without aura; Headache, worsening; Hydrocephalus; Post lumbar puncture headache [facility] would like to thank you for allowing us to assist you with your healthcare needs. The following includes patient education materials and information regarding your injury/illness. [facility] quisieran agradecerle por permitirnos ayudarlo con edith necesidades sobre franco cuidado de shai. A continuacin incluimos materiales para la educacin al paciente e informacin sobre franco nick/enfermedad. Discharge Information Discharge Vitals: No Language Spoken: Citizen Of [place] Memorial Designer Needed at Discharge: No Pain Present Upon [...] appointment within two weeks, please call for [facility] or for [place]. Por favor llame al [facility] o [place] , en chidi no lo hayan llamado dentro de dos semanas para darle oracio ammon. Your Upcoming Appointments/Edith proximas citas Please bring all home medications to every visit with us at [facility]. Your safety and education around medications [...] Acetaminophen is a pain reliever and fever electrophysiology scientist. Butalbital is in a group of drugs [...] or call the Poison Help line at [phone]- [phone]. An overdose of acetaminophen, butalbital, and caffeine [...] may report side effects to FDA at 8-104-YNF-6437. What other drugs will affect acetaminophen, butalbital, [...] acetaminophen, butalbital, and caffeine, including prescription and kvuz-nuo-docvljb medicines, vitamins, and herbal products. Tell each [...] to ensure that the information provided by [employer]. ('[employer]') is accurate, up-to-date, and complete, but no guarantee is made to that effect. Drug information contained herein may be time sensitive. [employer] information has been compiled for use by healthcare practitioners and consumers in the [place] and therefore [employer] does not warrant that uses outside of the [place] are appropriate, unless specifically indicated otherwise. [employer] drug information does not endorse drugs, diagnose patients or recommend therapy. [employer] drug information is an informational resource designed [...] effective or appropriate for any given patient. [employer] does not assume any responsibility for any aspect of healthcare administered with the aid of information [employer] provides. The information contained herein is not intended to cover all possible uses, directions, precautions, warnings, drug interactions, allergic reactions, or adverse effects. If you have questions about the drugs you are taking, check with your doctor, nurse or pharmacist. Copyright 0364-0496 [employer]. Version: 6.01. Revision Date: 2012. propranolol (pro [...] may report side effects to FDA at 0-079-KUI-0667. What other drugs will affect propranolol? Tell [...] may interact with propranolol, including prescription and pyja-rgu-furxfkr medicines, vitamins, and herbal products. Not all [...] to ensure that the information provided by [employer] ('[employer]') is accurate, up-to-date, and complete, but no guarantee is made to that effect. Drug information contained herein may be time sensitive. [employer] information has been compiled for use by healthcare practitioners and consumers in the [place] and therefore [employer] does not warrant that uses outside of the [place] are appropriate, unless specifically indicated otherwise. [employer] drug information does not endorse drugs, diagnose patients or recommend therapy. [employer] drug information is an informational resource designed [...] effective or appropriate for any given patient. [employer] does not assume any responsibility for any aspect of healthcare administered with the aid of information [employer] provides. The information contained herein is not intended to cover all possible uses, directions, precautions, warnings, drug interactions, allergic reactions, or adverse effects. If you have questions about the drugs you are taking, check with your doctor, nurse or pharmacist. Copyright 0984-2310 [employer]. Version: 11.. Revision Date: 2013. Patient Instructions/Instrucciones para [place] All smokers are encouraged to stop smoking. If you would like help, talk to your doctor or call The [place] [employer] Quitline at 9-698-JMKUNOW ([phone]- 6770). If you have thoughts about committing suicide [...] Released: 04/14/2009 Document Revised: 09/27/2012 Document Reviewed: [facility] Patient Information 2014 [facility]. Take Charge of Your Health with [employer] TechnologiesMiners' [facility] CenterUnbounce Sign up today for [employer] for access to your health records 09/02. [employer] allows you to: Request an appointment Check your lab results Communicate with your providers and care team See provider notes from your visit View immunization records View current medication Sign up Today! Ask your healthcare provider or a [facility] associate for help, or email [email or web address]. [email or web address] Author:Gerda Irizarry Title:Discharge Summary Date:03/01/15 Discharge Information [...] Discharge Diet: Diet Type: Regular. Activity: Ambulate. 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 Pt exhibits strong cluser B [...] evaluation in the [facility], [facility] and brain imaging with stable findings, condition [...] Darwin Ledbetter on 01 March 2015 11:56 [facility] Author:Carolina Craig Title:Medicine Progress Note Date:02/28/15 [...] and directed the plan. Carolina Craig MD art instructor [facility] Family History Value Date Source Advance Directives Order Name Results Value Date Source
--- OUTSIDE RECORDS SUMMARY | 2017-02-11 21:47 | XMS REPORT ---
Author Author [facility] Organization [facility] Address Unknown Phone Unavailable Care Team Providers Care Watch Crystal Molder Name Role Phone Enrrique Baron PCP Non-Staff, Physician PCP Unavailable Encounter [id number] Date(s): 01/09/17 - 01/10/17 [facility] [phone] [place] [id number] [facility] Discharge Disposition: Home Attending Physician: Shan Neumann MD Admitting Physician: Shan Neumann MD Referring Physician: Non-Staff, Physician Vital Signs No data available for this section Problem List Condition Effective Dates Status Health Status Informant Headache(Confirmed) 08/09/12 Active Headache due to old Active concussion(Confirmed ) Tobacco < 05/27/13 Resolved patient user(Confirmed)1, 2 1Updated by Discern Expert based on Social History Documentation 2Added by Discern Expert based on Social History Documentation Allergies, Adverse Reactions, Alerts No Known Allergies Medications No data available for this section Results No data available for this section Immunizations Given and Recorded Vaccine Date Status Refusal Reason tetanus/diphth/pertuss (Tdap) adult/adol 03/09/11 Given Procedures No data available for this section Social History No data available for this section Assessment and Plan No data available for this section
--- OUTSIDE RECORDS SUMMARY | 2017-02-11 21:50 | XMS REPORT | Clinical Summary ---
Author Author [facility] Organization [facility] Address Unknown Phone Unavailable Care Team Providers Care Manager Of Pharmacy Name Role Phone PCP Unavailable Source Comments Some departments are not documenting in the electronic medical record. If you do not see the information that you expected, contact Release of Information in the Health Information Management department at [phone] for further assistance in locating additional records.[facility] Allergies No Known Allergies Current Medications Prescription Sig. [...] mouth Active (PROTONIX) 20 mg tablet daily. wdhkkdyuv-slpgtocfs-gqxem Apply 1 Patch to affected 21 Patch 0 Active ol 1-0.0375-5 % area daily. 16 ptmdIndications: Headache(784.0) Active Problems Problem Noted Date Headache 02/12/2014 Headache(784.0) 01/31/2013 Hydrocephalus 01/26/2008 Trauma 01/02/2008 Migraine headache 12/09/2007 Hygroma 12/09/2007 Overview: Bilateral cerebral convexity hygromas Acute infection of nasal sinus 08/27/2007 Hydrocephalus 08/02/2007 Immunizations Name Dates Previously Given Next Due FLU VACCINE >3YO 06/08/2012 (Preservative Free) Pneumococcal Vaccine 01/31/2013, 01/12/2012 (23-Mone Adult) Family History Medical History Relation Name Comments Thyroid Disease Paternal Aunt Relation Name Status Comments Paternal Aunt Social History Tobacco Use Types Packs/Day Years Used Date Former Smoker 0.5 10 Smokeless Tobacco: Former User Comments: quite 4 months ago Alcohol Use Drinks/Week oz/Week Comments Yes drinks monthly Sex Assigned at Date Recorded Not on file Last Filed Vital Signs Vital Sign Reading Time Taken Blood Pressure 137/68 12/17/2015 4:10 PM CDT Pulse 108 12/17/2015 4:10 PM CDT Temperature 36.5 C (97.7 F) 04/23/2015 10:46 AM CDT Respiratory Rate - - Oxygen Saturation 97% 12/17/2015 4:54 PM CDT Inhaled Oxygen - - Concentration Weight 72.6 kg (160 lb) 12/17/2015 9:55 AM CDT Height 175.3 cm (5' 9.02") 12/17/2015 9:55 AM CDT Body Mass Index 23.62 12/17/2015 9:55 AM CDT Plan of Treatment Health Maintenance Due Date Last Done Comments PHYSICAL (COMPREHENSIVE) 1986 EXAM PERTUSSIS VACCINE 1990 TETANUS VACCINE 1996 INFLUENZA VACCINE 03/20/2017 06/08/2012 Results Not on filefrom Last 3 Months
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
== END 2017-02-04 11:25 | disposition home or self-care (01) ==
LOC: EDUNIT# 10:17 → ER 10:20
DX: R51 Headache (principal); G89.29 Other chronic pain; K21.9 Gastro-esophageal reflux disease without esophagitis; F41.9 Anxiety disorder, unspecified; F15.10 Other stimulant abuse, uncomplicated; F12.10 Cannabis abuse, uncomplicated; Z87.891 Personal history of nicotine dependence; Z87.820 Personal history of traumatic brain injury; Z98.2 Presence of cerebrospinal fluid drainage device; Z86.79 Personal history of other diseases of the circulatory system
CPT/HCPCS: 36415; 70450; 80053; 80306; 80320; 85007; 85025; 85027; 99283

== ENCOUNTER 2019-03-24 17:39 | Emergency (ER) | payer SELFPAY ==
[~2019-03-24] VITALS: Ht 177.8 cm; Wt 90.7 kg
[~2019-03-24 17:39] MED LIST changes: +ACET325T38 PO; +IBUP-2055 PO; -OXYC-202 PO; +OXYC1TAB12 PO
[2019-03-24] MEDS ORDERED: IBUPROFEN 800 MG (MOTRIN) TAB PO ONE (18:15)
--- NOTE | 2019-03-24 18:25 | Diagnostic Imaging Report ---
INDICATION: Hyperextension of the right knee. FINDINGS: Three views of the right knee show no fracture, dislocation, or other acute abnormality. IMPRESSION: Normal right knee. Dictated by: Dictated on workstation # [id number]
--- NOTE | 2019-03-24 18:29 | ED Lower Extremity ---
General Chief Complaint: Lower Extremity Stated Complaint: RT LEG INJ Nursing Triage Note: Patient c/o right knee pain. States he was standing beside bed when his knee became hyperextended and he couldn't get it to return to the normal position. He reports he had to reach back and press his knee forward. He states his knee then gave and he fell to the floor. He was unable to get up off of the floor for approximately 5-10 minutes. He tried to walk on his knee all day and it has not improved. He decided to come have it evaluated in the ED. Nursing Sepsis Screen: No Definite Risk Source: patient Exam Limitations: no limitations History of Present Illness Date Seen by Provider: Mar 24, 2019 Time Seen by Provider: 18:05 Initial Comments Patient states he woke up this morning and started at the side of his bed and his right knee "hyperextended" patient states that he pushed his knee back in place and then it extended forward and bent all the way back touching his knee and he fell onto the ground and was unable to straighten his knee. Patient st ates he then forcibly put his knee back again straight and since then has been having the pain today. Presents ambulatory to the ER with complaint of right knee pain. Denies a history of "hyperextending his knee". Denies history of knee surgery or trauma. Denies history of ligament injury to his knee. No other complaints Onset: this morning Allergies and Home Medications Allergies Coded Allergies: No Known Drug Allergies (Unverified , 10/06/16) Home Medications Donepezil HCl 10 Mg Tablet, 20 MG PO DAILY, (Reported) Fluoxetine HCl 40 Mg Capsule, 60 MG PO DAILY, (Reported) Ibuprofen 800 Mg Tablet, 800 MG PO Q8H PRN for PAIN-MILD Prescribed by: MARINA ANDERSON on 03/24/19 4811 Patient Home Medication List Home Medication List Reviewed: Yes Review of Systems Constitutional: no symptoms reported; No fever, No weakness Musculoskeletal: No back pain; joint pain (right knee); No joint swelling, No muscle pain, No muscle stiffness, No muscle cramps, No muscle twitching, No muscle weakness, No neck pain Skin: No change in color, No rash Past Oihvuqi-Mqygcu-Dquyyt Hx Past Med/Social Hx: Reviewed Nursing Past Med/Soc Hx Patient Social History Alcohol Use: Denies Use Recreational Drug Use: No Drug of Choice: HX: THC,METH Type Used: Cigars, Cigarettes Former Smoker, Quit: Oct 06, 2013 Recent Foreign Travel: No Contact w/Someone Who Travel: No Recent Infectious Disease Expo: No Recent Hopitalizations: No Physical Abuse: No Sexual Abuse: No Mistreated: No Fear: No Seasonal Allergies Seasonal Allergies: Yes Past Medical History Surgeries: Yes (CUTTER GRINDER SHUNTS/REVISIONS/REPLACEMENTS AND REMOVAL) Gallbladder, Neurological Respiratory: No Cardiac: No Neurological: Yes (HYDROCEPHALUS) Headaches /Migraines, Traumatic Brain Injury Reproductive Disorders: No Sexually Transmitted Disease: No HIV/AIDS: No Genitourinary: No Gastrointestinal: Yes Gastroesophageal Reflux, Gall Bladder Disease Musculoskeletal: Yes (SHOULDER PAIN) Endocrine: No HEENT: No Loss of Vision: Denies Hearing Impairment: Denies Cancer: No Psychosocial: Yes Anxiety Integumentary: No Blood Disorders: No Adverse Reaction/Blood Tranf: No (N/A) Physical Exam Vital Signs Vital Signs - First Documented 03/24/19 17:45 Temp 98.1 Pulse 118 Resp 22 B/P (MAP) 143/90 (107) Pulse Ox 100 O2 Delivery Room Air Capillary Refill : Less Than 3 Seconds Height, Weight, BMI Height: 5'10.00" Weight: 200lbs. 4.0oz. 90.823347ax; 22.6 BMI Method:Stated General Appearance: WD/WN, no apparent distress Hips: right hip non-tender, right hip normal inspection Legs: right leg non-tender, right leg normal inspection, right leg normal range of motion, right leg no evidence of injury Knees: right knee normal inspection, right knee normal range of motion, right knee no evidence of injury Normal appearance of the right knee, no gross deformity, full and painless active range of motion without any limitation. Examination is unremarkable with no joint effusion, no ligamentous laxity and just generalized tenderness about the knee. Progress/Results/Core Measures Results/Orders My Orders Orders - MARINA ANDERSON DO Knee 3 View Right (03/24/19 18:08) Ibuprofen Tablet (Motrin Tablet) (03/24/19 18:15) Medications Given in ED Current Medications Medications Dose Ordered Sig/Daquan Route Start Time Stop Time Status Last Admin Dose Admin Ibuprofen 800 mg ONCE ONCE PO 03/24/19 18:15 03/24/19 18:16 DC 03/24/19 18:18 800 MG Vital Signs/I&O 03/24/19 03/24/19 17:45 18:44 Temp 98.1 98.1 Pulse 118 99 Resp 22 22 B/P (MAP) 143/90 (107) 143/90 (107) Pulse Ox 100 100 O2 Delivery Room Air Blood Pressure Mean: 107 Progress Progress Note : Progress Note Patient asking for pain medicine, given 800 of Motrin and a bag of ice for his knee. Discharge patient aggressively asking for a prescription for "better pain medicine". Explained to the patient that his knee was not broken, it was not swollen and he had good range of motion and that treatment in this case would be ice and anti-inflammatory medicine as well as a knee immobilizer. Patient advised to see his primary care physician in one week. Patient left prior to receiving his discharge instructions and was seen walking into the lobby and removing his knee brace. Strongly suspicious for "drug seeking behavior" Diagnostic Imaging Diagonstic Imaging: Xray Plain Films/CT/US/NM/MRI: knee Comments Normal right knee Departure Impression Primary Impression: Sprain of knee Qualified Codes: S83.91XA - Sprain of unspecified site of right knee, initial encounter Disposition: HOME, SELF-CARE Condition: Stable Departure-Patient Inst. Decision time for Depature: 18:28 Referrals: JLUIS SERRANO DO (PCP) Primary Care Physician See your Primary Care Provider in 1 week for follow-up. VALERY GIBSON (Family) Primary Care Physician Patient Instructions: Ligament Injuries in the Knee (DC) Scripts Ibuprofen (Ibuprofen) 800 Mg Tablet 800 MG PO Q8H PRN for PAIN-MILD, #30 TAB Prov: MARINA ANDERSON DO 03/24/19 MARINA ANDERSON DO Mar 24, 2019 18:29
[2019-03-24] MEDS ORDERED: IBUP-1780 PO (18:36)
[2019-03-24 18:44] VITALS: BP 143/90
== END 2019-03-24 18:44 | disposition home or self-care (01) ==
LOC: EDUNIT# 17:39 → ER FS 17:40
DX: S83.91XA Sprain of unspecified site of right knee, initial encounter (principal); G43.909 Migraine, unspecified, not intractable, without status migrainosus; K21.9 Gastro-esophageal reflux disease without esophagitis; F41.9 Anxiety disorder, unspecified; Z87.820 Personal history of traumatic brain injury; Z87.891 Personal history of nicotine dependence; W18.30XA Fall on same level, unspecified, initial encounter
CPT/HCPCS: 73562

== ENCOUNTER 2019-03-29 11:43 | Emergency (ER) | payer SELFPAY ==
[~2019-03-29] VITALS: Ht 175.2 cm; Wt 90.9 kg
[~2019-03-29 11:43] MED LIST changes: +IBUP-1780 PO
[2019-03-29] MEDS ORDERED: ORPHENADRINE 60 MG/2 ML (NORFLEX) AMP IM STA (12:04)
[2019-03-29] MEDS ORDERED: fentaNYL INJECTION 100 MCG/2 ML AMP IM STA (12:04)
[2019-03-29] MEDS ORDERED: ONDANSETRON 4 MG (ZOFRAN) ORAL DISSOLVE TAB PO STA (12:04)
--- NOTE | 2019-03-29 12:15 | ED Head Injury ---
General Chief Complaint: Head/Cervical Problems Stated Complaint: HEAD INJ W/ LOC Source: patient History of Present Illness Date Seen by Provider: Mar 29, 2019 Time Seen by Provider: 11:46 Initial Comments 38-year-old male presenting with complaints of headache and neck pain after a fall at 8:30 this a.m. He states that he was trying to pick Around the house and had slipped and fell backwards hitting his head. He reports losing consciousness when this happened. He had increased head and neck pain after the fall. He also reports having double vision. He is following with a neurosurgeon in [place] at [facility]. He has last seen them in December of this year. His next appointment is at the end of March. He reports having some tingling to the back of his legs bilaterally. He denies any weakness in his extremities. He has had some nausea since the fall and usually takes Zofran. He did go ahead have his regular dental appointment and had a tooth pulled at 10 AM. He is asking for something for pain because of the head injury. Allergies and Home Medications Allergies Coded Allergies: No Known Drug Allergies (Unverified , 10/06/16) Home Medications Butalb/Acetaminophen/Caffeine 1 Each Capsule, 1 EACH PO Q4H PRN for HEADACHE Prescribed by: ROSALINA GREEN on 03/29/19 1451 Donepezil HCl 10 Mg Tablet, 20 MG PO DAILY, (Reported) Fluoxetine HCl 40 Mg Capsule, 60 MG PO DAILY, (Reported) Ibuprofen 800 Mg Tablet, 800 MG PO Q8H PRN for PAIN-MILD Prescribed by: MARINA ANDERSON on 03/24/19 4816 Patient Home Medication List Home Medication List Reviewed: Yes Review of Systems Review of Systems Constitutional: No chills, No dizziness, No fever Eyes: Denies Blurred Vision (having double vision since the fall and injury), Denies Drainage, Denies Photophobia Ears, Nose, Mouth, Throat: denies ear pain, denies ear discharge, denies nose pain, denies nose discharge, denies epistaxis Respiratory: No cough, No short of breath Cardiovascular: No chest pain Gastrointestinal: No abdominal pain; nausea; No vomiting Genitourinary: no symptoms reported Musculoskeletal: No muscle weakness; neck pain Skin: no symptoms reported Psychiatric/Neurological: Headache, Tingling (to backs of his legs) Past Qxrghpg-Rlhbze-Nmdrau Hx Past Med/Social Hx: Reviewed Nursing Past Med/Soc Hx Patient Social History Drug of Choice: HX: THC,METH Type Used: Cigars, Cigarettes Former Smoker, Quit: Oct 06, 2013 Recent Hopitalizations: No Seasonal Allergies Seasonal Allergies: Yes Past Medical History Surgeries: Yes (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 SHUNTS/REVISIONS/REPLACEMENTS AND REMOVAL) Gallbladder, Neurological Respiratory: No Cardiac: No Neurological: Yes (HYDROCEPHALUS) Headaches /Migraines, Traumatic Brain Injury Reproductive Disorders: No Sexually Transmitted Disease: No HIV/AIDS: No Genitourinary: No Gastrointestinal: Yes Gastroesophageal Reflux, Gall Bladder Disease Musculoskeletal: Yes (SHOULDER PAIN) Endocrine: No HEENT: No Loss of Vision: Denies Hearing Impairment: Denies Cancer: No Psychosocial: Yes Anxiety Integumentary: No Blood Disorders: No Adverse Reaction/Blood Tranf: No (N/A) Physical Exam Vital Signs Vital Signs - First Documented 03/29/19 11:45 Temp 37.1 Pulse 110 Resp 20 B/P (MAP) 137/69 Pulse Ox 97 O2 Delivery Room Air Capillary Refill : Height, Weight, BMI Height: 5'10.00" Weight: 200lbs. 4.0oz. 90.378830jl; 22.6 BMI Method:Stated General Appearance: WD/WN, no apparent distress HEENT: PERRL/EOMI, normal ENT inspection, TMs normal, pharynx normal; No photophobia; other (no walls sign. no raccoon sign) Neck: full range of motion, supple, tender lateral; No tender midline Cardiovascular: normal peripheral pulses, regular rate, rhythm Respiratory: chest non-tender, lungs clear, normal breath sounds, no respiratory distress, no accessory muscle use Gastrointestinal: normal bowel sounds, non tender, soft, no pulsatile mass Extremities: normal range of motion, non-tender, normal inspection, normal capillary refill Psychiatric: alert, oriented x 3 Crainal Nerves: normal hearing, normal speech, PERRL Coordination/Gait: normal gait Motor/Sensory: no motor deficit, no sensory deficit Skin: normal color, warm/dry Corey Coma Score Best Eye Response: (4) Open Spontaneously Best Verbal Response: (5) Oriented Best Motor Response: (6) Obeys Commands [place] Total: 15 Progress/Results/Core Measures Results/Orders My Orders Orders - ROSALINA GREEN MD Fentanyl Injection (Sublimaze Injection (03/29/19 12:04) Orphenadrine Injection (Norflex Injectio (03/29/19 12:04) Ondansetron Oral Dissolve Tab (Zofran (03/29/19 12:04) Ct Head/Cervical Spine Wo (03/29/19 12:05) Butalbital/Apap/Caffeine Tab (Fioricet T (03/29/19 15:04) Vital Signs/I&O 03/29/19 15:43 Temp 37.1 Pulse 110 Resp 20 B/P (MAP) 137/69 (91) Pulse Ox 97 O2 Delivery Room Air Progress Progress Note #1: Progress Note check CT scan of head and cervical spine. since I do not know if he has any bleeding intracranially will start with fentanyl 50 mcg IM, Norflex 60 mg IM and Zofran 4 mg ODT. , ice to head and cervical spine. Progress Note #2: Time: 13:[address] scans of the Head and cervical spine are back and do not show acute findings compared to prior imaging. When I went to check on patient he was sleeping soundly in the room without any distress. When I woke him up by saying his name and lightly touching his shoulder he woke up easily but then said he had a pounding headache. He was asking for dilaudid 8 mg twice a day until he can get in with his provider at [facility]. I advised him that I wouldn't do that unless the [facility] doctors wanted me to prescribe that. Will call up to [facility] to get a consult from the neurosurgeons that saw him there. He cannot rem ember the provider that he sees up there. I offered to give him a steroid for anti-inflammatory in the meantime but he refused those. Progress Note #3: Time: 14:21 Progress Note Discussed with Dr. Pranav Cade at the [facility] transfer center and he pulled up the records on the patient. He is following with neurologist Dr. Kimberly Benavides who is a headache and concussion specialist. he does have an appointment to see her again on the . They recommended maybe trying Fioricet and rest and fluids and avoiding narcotics. Follow-up with the clinic for continued concerns. Progress Note #4: Progress Note Plan patient was advised of the recommendations from [facility] he was requesting to get pain medicine still. He stated that getting even a single injection of some Dilaudid would be better than nothing. He would prefer to get a prescription for Dilaudid to continue to help manage his pain until he can follow up. I reiterated to him that the [facility] providers did not want him to be using narcotics for his headache control especially since he has a recurrent concussion. Counseled to follow-up with [facility] providers and to push fluids and rest. He could try Fioricet in the meantime. Diagnostic Imaging Diagonstic Imaging: CT Plain Films/CT/US/NM/MRI: c-spine, head Departure Impression Primary Impression: Concussion with brief (less than one hour) loss of consciousness Additional Impression: Cervical myofascial strain Qualified Codes: S16.1XXA - Strain of muscle, fascia and tendon at neck level, initial encounter Disposition: HOME, SELF-CARE Condition: Stable Departure-Patient Inst. Decision time for Depature: 14:51 Referrals: NO,LOCAL PHYSICIAN (PCP) Primary Care Physician [facility] [place]ructions: Concussion, Adult (DC), Cervical Muscle Strain (DC) Add. Discharge Instructions: Stay well hydrated and get plenty of rest. Follow up with Dr. Kimberly Benavides at [facility] on April 18 as scheduled or call to be seen sooner for continued problems/concerns Try the Fioricet to see if that helps with your pain and headaches in addition to your medicines you take chronically. All discharge instructions reviewed with patient and/or family. Voiced understanding. Scripts Butalb/Acetaminophen/Caffeine ([id number] [id number]) 1 Each Capsule 1 EACH PO Q4H PRN for HEADACHE for 10 Days, #60 CAP 0 Refills Prov: ROSALINA GREEN MD 03/29/19 ROSALINA GREEN MD Mar 29, 2019 12:15
--- NOTE | 2019-03-29 12:44 | Diagnostic Imaging Report ---
PROCEDURE: CT head and CT cervical spine without contrast. TECHNIQUE: Multiple contiguous axial images were obtained through the brain and cervical spine without the use of intravenous contrast. Sagittal and coronal reformations through the cervical spine were then performed. Auto Exposure Controls were utilized during the CT exam to meet ALARA standards for radiation dose reduction. INDICATION: Fall with loss of consciousness this morning. Head and neck pain. History of hydrocephalus with shunt placement and removal. COMPARISON: CT head of 02/04/2017. FINDINGS: CT HEAD: Ventriculomegaly is again noted with the biventricular diameter measuring 5.2 cm, similar to the prior exam. There is no midline shift or mass effect. No acute intracranial hemorrhage is seen. There is no CT evidence of acute territorial ischemia. Chronic encephalomalacia is again seen in the right frontal lobe. No focal masses or collections are present. The calvarium is intact. The visualized paranasal sinuses are clear. CT CERVICAL SPINE: No acute fracture or dislocation is seen in the cervical spine. There is reversal of the normal lordotic curvature of the cervical spine centered at the C4-C5 level. No focal osseous lesions. The vertebral body heights are well-maintained. The craniocervical junction is well-maintained. The included lung apices are clear. The soft tissues of the neck are unremarkable. IMPRESSION: 1. No hemorrhage or focal intra-axial mass. No CT evidence of large acute territorial ischemia. 2. No acute fracture or dislocation in the cervical spine. 3. Ventriculomegaly, similar to the prior exam. No CT evidence of acute hydrocephalus. 4. Chronic encephalomalacia in the right frontal lobe. Dictated by: Dictated on workstation # [id number]
[2019-03-29] MEDS ORDERED: BUTA1CAP41 PO (14:51)
[2019-03-29] MEDS ORDERED: ACET/BUTAL/CAFF (FIORICET) TAB PO STA (15:04)
[2019-03-29 15:43] VITALS: BP 137/69
== END 2019-03-29 16:00 | disposition home or self-care (01) ==
LOC: EDUNIT# 11:43 → ER FS 11:44
DX: S06.0X9A Concussion with loss of consciousness of unspecified duration, initial encounter (principal); S16.1XXA Strain of muscle, fascia and tendon at neck level, initial encounter; G43.909 Migraine, unspecified, not intractable, without status migrainosus; K21.9 Gastro-esophageal reflux disease without esophagitis; F41.9 Anxiety disorder, unspecified; R40.2142 Coma scale, eyes open, spontaneous, at arrival to emergency department; R40.2252 Coma scale, best verbal response, oriented, at arrival to emergency department; R40.2362 Coma scale, best motor response, obeys commands, at arrival to emergency department; Z87.891 Personal history of nicotine dependence; W01.198A Fall on same level from slipping, tripping and stumbling with subsequent striking against other object, initial encounter
CPT/HCPCS: 70450; 72125; 96372

== ENCOUNTER 2019-03-30 00:09 | Emergency (ER) | payer SELFPAY ==
[~2019-03-30] VITALS: Ht 177.8 cm; Wt 90.9 kg
[~2019-03-30 00:09] MED LIST changes: +BUTA1CAP41 PO
--- NOTE | 2019-03-30 00:50 | ED Headache ---
General Chief Complaint: Head/Cervical Problems Stated Complaint: HEADACHE Nursing Triage Note: pt reports mcfarland x 2 days, already seen today and treated, pt demanding narcotics and has been told his neurologist does not want him to have any Nursing Sepsis Screen: No Definite Risk Source: patient History of Present Illness Date Seen by Provider: Mar 30, 2019 Time Seen by Provider: 00:11 Initial Comments 38 yo M presents with [place] that he states has now been present for over 2 days and is so severe that he needs dilaudid with benadryl to manage it. He was seen earlier in the day with complaints of a headache that he reported started after he had fallen at home and hit his head on the concrete floor causing pain to back of his head and neck. 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 He had no acute findings on his CT head and cervical spine. He had a single dose of Fentanyl and Norflex as I did not know if he had intracranial hemorrhage and did not want to give him Toradol until I knew if he had bleeding. After the normal CT scan I spoke with [facility] for a consult about his headaches and they said he does follow with Dr. Julia Benavides, a Neurologist that specializes in head injury and headaches. From their recommendations and general Neurology recommendations for severe headaches and traumatic brain injury patients he should not receive narcotics as they may cause rebound headaches and worsened symptoms as well as dependence. They recommend Fioricet, continue the Imitrex and the Topimax. I reviewed that with him and he stated understanding but that he was frustrated that he could not get Dilaudid as he feels that getting several doses of dilaudid has helped his pain in the past. Now he presents again to the ED with complaints that he has had a headache for over 2 days and that he has severe pain. He again is stating that he feels he needs the narcotics to control his pain. Allergies and Home Medications Allergies Coded Allergies: No Known Drug Allergies (Unverified , 10/06/16) Home Medications Butalb/Acetaminophen/Caffeine 1 Each Capsule, 1 EACH PO Q4H PRN for HEADACHE Prescribed by: ROSALINA GREEN on 03/29/19 3977 Donepezil HCl 10 Mg Tablet, 20 MG PO DAILY, (Reported) Fluoxetine HCl 40 Mg Capsule, 60 MG PO DAILY, (Reported) Ibuprofen 800 Mg Tablet, 800 MG PO Q8H PRN for PAIN-MILD Prescribed by: MARINA ANDERSON on 03/24/19 1836 Patient Home Medication List Home Medication List Reviewed: Yes Review of Systems Review of Systems Constitutional: No chills, No fever Eyes: Denies Blurred Vision; Photophobia Ears, Nose, Mouth, Throat: denies ear pain, denies ear discharge, denies nose pain, denies nose discharge Respiratory: No cough Cardiovascular: No chest pain Gastrointestinal: no symptoms reported Genitourinary: no symptoms reported Musculoskeletal: no symptoms reported Skin: no symptoms reported Past Dfbyfbr-Rknusc-Ytrybb Hx Past Med/Social Hx: Reviewed Nursing Past Med/Soc Hx Patient Social History Alcohol Use: Denies Use Recreational Drug Use: Yes Drug of Choice: HX: THC,METH Type Used: Cigars, Cigarettes Former Smoker, Quit: Oct 06, 2013 Recent Foreign Travel: No Contact w/Someone Who Travel: No Recent Infectious Disease Expo: No Recent Hopitalizations: No Physical Abuse: No Sexual Abuse: No Mistreated: No Fear: No Seasonal Allergies Seasonal Allergies: Yes Past Medical History 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/REPLACEMENTS AND REMOVAL) Gallbladder, Neurological Respiratory: No Cardiac: No Neurological: Yes (HYDROCEPHALUS) Headaches /Migraines, Traumatic Brain Injury Reproductive Disorders: No Sexually Transmitted Disease: No HIV/AIDS: No Genitourinary: No Gastrointestinal: Yes Gastroesophageal Reflux, Gall Bladder Disease Musculoskeletal: Yes (SHOULDER PAIN) Endocrine: No HEENT: No Loss of Vision: Denies Hearing Impairment: Denies Cancer: No Psychosocial: Yes Anxiety Integumentary: No Blood Disorders: No Adverse Reaction/Blood Tranf: No (N/A) Physical Exam Vital Signs Vital Signs - First Documented 03/30/19 00:22 Temp 37.5 Pulse 119 Resp 16 B/P (MAP) 158/71 (100) Pulse Ox 96 O2 Delivery Room Air Capillary Refill : Less Than 3 Seconds Height, Weight, BMI Height: 5'10.00" Weight: 200lbs. 4.0oz. 90.810643ux; 28.00 BMI Method:Stated General Appearance: WD/WN, no apparent distress HEENT: PERRL/EOMI, pharynx normal Cardiovascular: normal peripheral pulses Psychiatric: alert, oriented x 3 Crainal Nerves: normal speech, PERRL Coordination/Gait: normal gait Motor/Sensory: no motor deficit, no sensory deficit Skin: normal color, warm/dry Progress/Results/Core Measures Results/Orders My Orders Orders - ROSALINA GREEN MD Ketorolac Injection (Toradol Injection) (03/30/19 01:05) Dexamethasone Injection (Decadron Inject (03/30/19 01:05) Vital Signs/I&O 03/30/19 00:22 Temp 37.5 Pulse 119 Resp 16 B/P (MAP) 158/71 (100) Pulse Ox 96 O2 Delivery Room Air Blood Pressure Mean: 100 Progress Progress Note #1: Progress Note advised pt that when he was here earlier today the [facility] providers already had requested that I do not give him narcotics. He states he has continued pain and now changes his story from what he said this am. Advised that he needs to continue with meds as discussed earlier. He still is demanding Dilaudid because he says it is the only thing that has helped him before and he needs it to make his headache better. I offered him Toradol and Decadron but he refused stating that it was never helpful for him. Progress Note #2: Progress Note After calling and speaking with [facility]'s Transfer Line they confirm that the patient is known to exhibit drug seeking behavior. Will continue with plan of not giving narcotics. Again offered Toradol and Dexamethasone. Pt is willing to take that now but wants Benadryl as well. However he was walking home and did not want to have him stumble or walk into traffic. Departure Impression Primary Impression: Chronic headaches Qualified Codes: G44.321 - Chronic post-traumatic headache, intractable Additional Impressions: Personal history of traumatic brain injury Drug-seeking behavior Disposition: HOME, SELF-CARE Condition: Stable Departure-Patient Inst. Decision time for Depature: 01:08 Referrals: NO,LOCAL PHYSICIAN (PCP/Family) Primary Care Physician Patient Instructions: Traumatic Brain Injury (DC), Headache, Adult (DC) Add. Discharge Instructions: Continue on your medicines as prescribed by Dr. Julia Benavides. Follow up with her on April 18 or sooner if more concerns All discharge instructions reviewed with patient and/or family. Voiced understanding. ROSALINA GREEN MD Mar 30, 2019 00:50
[2019-03-30 01:14] VITALS: BP 158/71
[2019-03-30] MEDS: KETOROLAC 60 MG/2 ML VIAL IM STA (01:14)
[2019-03-30] MEDS: DEXAMETHASONE 10 MG/ML (DECADRON) 1 ML VIAL IM STA (01:14)
== END 2019-03-30 01:22 | disposition home or self-care (01) ==
LOC: EDUNIT# 00:09 → ER FS 00:11
DX: R51 Headache (principal); K21.9 Gastro-esophageal reflux disease without esophagitis; F41.9 Anxiety disorder, unspecified; Z76.5 Malingerer [conscious simulation]; Z86.69 Personal history of other diseases of the nervous system and sense organs; Z87.820 Personal history of traumatic brain injury; Z87.891 Personal history of nicotine dependence
CPT/HCPCS: 96372; 99284

== ENCOUNTER 2019-03-31 16:55 | Emergency (ER) | payer SELFPAY ==
[~2019-03-31] VITALS: Ht 180 cm; Wt 91.0 kg
[2019-03-31 17:41] VITALS: BP 132/83
[2019-03-31] MEDS ORDERED: LIDOCAINE 2% VISCOUS 15 ML UDC ONE (17:51)
--- NOTE | 2019-03-31 17:56 | ED EENT ---
History of Present Illness General Chief Complaint: Dental Problems/Pain Stated Complaint: RT SIDE ORAL PAIN Nursing Triage Note: PT REPORTS HE WENT TO THE DENTIST AND GOT A TOOTH PULLED AT 9 AM/ RT BACK UPPER TOP. HE REPORTS DENTAL PAIN AND PART OF A TOOTH REMAINS. Source: patient History of Present Illness Date Seen by Provider: Mar 31, 2019 Time Seen by Provider: 17:51 Initial Comments THE PATIENT IS A 38-YEAR-OLD WHITE MALE WHO IS ON HIS fourth visit to this ER this month including yesterday. He reports that he went to the dentist this morning and had a left upper molar extracted. He reports that a piece of the tooth was left behind. He now has excruciating pain and swelling in the gums. He also states that he was given hydrocodone 5 mg a week ago or so and they do not provide any relief. Allergies and Home Medications Allergies Coded Allergies: No Known Drug Allergies (Unverified , 10/06/16) Home Medications Butalb/Acetaminophen/Caffeine 1 Each Capsule, 1 EACH PO Q4H PRN for HEADACHE Prescribed by: ROSALINA GREEN on 03/29/19 1451 Donepezil HCl 10 Mg Tablet, 20 MG PO DAILY, (Reported) Fluoxetine HCl 40 Mg Capsule, 60 MG PO DAILY, (Reported) Ibuprofen 800 Mg Tablet, 800 MG PO Q8H PRN for PAIN-MILD Prescribed by: MARINA ANDERSON on 03/24/19 1836 Patient Home Medication List Home Medication List Reviewed: Yes Review of Systems Review of Systems Constitutional: see HPI Eyes: No Symptoms Reported Ears: No Symptoms Reported Nose: no symptoms reported Mouth: see HPI Throat: no symptoms reported Respiratory: no symptoms reported Cardiovascular: no symptoms reported Gastrointestinal: no symptoms reported Musculoskeletal: no symptoms reported Skin: no symptoms reported Neurological: No Symptoms Reported Hematologic/Lymphatic: No Symptoms Reported Immunological/Allergic: no symptoms reported Past Lfcuwck-Gsknoi-Vknbrc Hx Patient Social History Alcohol Use: Denies Use Recreational Drug Use: No Drug of Choice: HX: THC,METH Smoking Status: Unknown if Ever Smoked Type Used: Cigars, Cigarettes Former Smoker, Quit: Oct 06, 2013 2nd Hand Smoke Exposure: No Recent Foreign Travel: No Contact w/Someone Who Travel: No Recent Infectious Disease Expo: No Recent Hopitalizations: No Physical Abuse: No Sexual Abuse: No Mistreated: No Fear: No Seasonal Allergies Seasonal Allergies: Yes Past Medical History 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 REMOVAL) Gallbladder, Neurological Respiratory: No Cardiac: No Neurological: Yes (HYDROCEPHALUS) Headaches /Migraines, Traumatic Brain Injury Reproductive Disorders: No Sexually Transmitted Disease: No HIV/AIDS: No Genitourinary: No Gastrointestinal: Yes Gastroesophageal Reflux, Gall Bladder Disease Musculoskeletal: Yes (SHOULDER PAIN) Endocrine: No HEENT: No Loss of Vision: Denies Hearing Impairment: Denies Cancer: No Psychosocial: Yes Anxiety Integumentary: No Blood Disorders: No Adverse Reaction/Blood Tranf: No (N/A) Physical Exam Vital Signs Vital Signs - First Documented 03/31/19 17:41 Temp 36.7 Pulse 88 Resp 18 B/P (MAP) 132/83 (99) O2 Delivery Room Air Height, Weight, BMI Height: 5'10.00" Weight: 200lbs. 4.0oz. 90.726793gz; 28.00 BMI Method:Stated General Appearance: WD/WN, no apparent distress Eyes: bilateral eye normal inspection Ears: bilateral ear auricle normal, bilateral ear canal normal Nose: normal inspection Mouth/Throat: other (there is a fresh crater with a remnant of tooth in the posterior upper molar position) Neck: non-tender, full range of motion Cardiovascular: regular rate, rhythm Respiratory: chest non-tender, lungs clear, normal breath sounds, no respiratory distress, no accessory muscle use Progress/Results/Core Measures Results/Orders Vital Signs/I&O 03/31/19 17:41 Temp 36.7 Pulse 88 Resp 18 B/P (MAP) 132/83 (99) O2 Delivery Room Air Blood Pressure Mean: 99 Departure Impression Primary Impression: dental pain Disposition: 01 HOME, SELF-CARE Condition: Stable/Unchanged Departure-Patient Inst. Referrals: NO,LOCAL PHYSICIAN (PCP/Family) Primary Care Physician Patient Instructions: Fractured Tooth (DC) Add. Discharge Instructions: All discharge instructions reviewed with patient and/or family. Voiced understanding. Take ibuprofen 800 mg 4 times daily Take warm but not hot or cold liquids. Use ibuprofen 800 mg 4 times a day. See your dentist as soon as possible. KO LOPEZ MD Mar 31, 2019 17:56
[2019-03-31] MEDS ORDERED: LIDOCAINE 2% VISCOUS 15 ML UDC PO ONE (18:15)
[2019-04-01] MEDS ORDERED: CLON1TAB13 (13:54)
[2019-04-01] MEDS ORDERED: HYDR-3812 (13:54)
== END 2019-03-31 18:05 | disposition left against medical advice (07) ==
LOC: EDUNIT# 16:55 → ER FS 16:56
DX: K08.89 Other specified disorders of teeth and supporting structures (principal); G43.909 Migraine, unspecified, not intractable, without status migrainosus; K21.9 Gastro-esophageal reflux disease without esophagitis; F41.9 Anxiety disorder, unspecified; Z87.891 Personal history of nicotine dependence; Z87.820 Personal history of traumatic brain injury
CPT/HCPCS: 99282

== ENCOUNTER 2019-04-01 12:53 | Emergency (ER) | payer SELFPAY ==
[~2019-04-01] VITALS: Ht 178 cm; Wt 91.0 kg
[2019-04-01 13:04] VITALS: BP 135/80
--- NOTE | 2019-04-01 13:43 | ED EENT ---
History of Present Illness General Chief Complaint: Dental Problems/Pain Stated Complaint: DENTAL PAIN Nursing Triage Note: Patient presents to ER again to report dental pain. Pt had extraction of tooth yesterday morning and came to ER last night also for pain. Pt reports dental office closed today and and no where to go to be seen. Pt demands pain control. History of Present Illness Date Seen by Provider: Apr 01, 2019 Time Seen by Provider: 13:38 Initial Comments 38 yo male gives hx as above pt being seen here for the 4th day in a row presented for fall/head injury on 03-29, returned 03-30 for continuation of that then said he had right upper tooth extraction yesterday and came here fo pain control on 03-31, now returns for same K tracs show lots of Rx fills for narcs and benzo's very high scores prior dx of drug seeking etc on chart Allergies and Home Medications Allergies Coded Allergies: No Known Drug Allergies (Unverified , 10/06/16) Home Medications Butalb/Acetaminophen/Caffeine 1 Each Capsule, 1 EACH PO Q4H PRN for HEADACHE Prescribed by: ROSALINA GREEN on 03/29/19 1451 Donepezil HCl 10 Mg Tablet, 20 MG PO DAILY, (Reported) Fluoxetine HCl 40 Mg Capsule, 60 MG PO DAILY, (Reported) Ibuprofen 800 Mg Tablet, 800 MG PO Q8H PRN for PAIN-MILD Prescribed by: MARINA ANDERSON on 03/24/19 1836 Patient Home Medication List Home Medication List Reviewed: Yes Review of Systems Review of Systems Constitutional: No fever Eyes: No Symptoms Reported Ears: No Symptoms Reported Nose: no symptoms reported Throat: no symptoms reported Respiratory: no symptoms reported Cardiovascular: no symptoms reported Gastrointestinal: no symptoms reported (right upper molar area pain is only complaint); No abdominal pain Past Mwjaqcr-Rfuhrq-Qukxaq Hx Patient Social History Alcohol Use: Denies Use Recreational Drug Use: No Drug of Choice: HX: THC,METH Smoking Status: Former Smoker Type Used: Cigars, Cigarettes Former Smoker, Quit: Oct 06, 2013 2nd Hand Smoke Exposure: No Recent Foreign Travel: No Contact w/Someone Who Travel: No Recent Infectious Disease Expo: No Recent Hopitalizations: No Physical Abuse: No Sexual Abuse: No Mistreated: No Fear: No Seasonal Allergies Seasonal Allergies: Yes Past Medical History 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) Gallbladder, Neurological Respiratory: No Cardiac: No Neurological: Yes (HYDROCEPHALUS) Headaches /Migraines, Traumatic Brain Injury Reproductive Disorders: No Sexually Transmitted Disease: No HIV/AIDS: No Genitourinary: No Gastrointestinal: Yes Gastroesophageal Reflux, Gall Bladder Disease Musculoskeletal: Yes (SHOULDER PAIN) Endocrine: No HEENT: No Loss of Vision: Denies Hearing Impairment: Denies Cancer: No Psychosocial: Yes Anxiety Integumentary: No Blood Disorders: No Adverse Reaction/Blood Tranf: No (N/A) Physical Exam Vital Signs Vital Signs - First Documented 04/01/19 13:04 Temp 36.6 Pulse 92 Resp 20 B/P (MAP) 135/80 (98) Pulse Ox 98 O2 Delivery Room Air Height, Weight, BMI Height: 5'10.00" Weight: 200lbs. 4.0oz. 90.447219mv; 28.00 BMI Method:Stated General Appearance: WD/WN, no apparent distress Eyes: bilateral eye PERRL, bilateral eye EOMI Ears: bilateral ear TM normal Mouth/Throat: other (no gum swelling or bleeding no definite acute findings) Neck: non-tender, supple Cardiovascular: regular rate, rhythm Respiratory: lungs clear Progress/Results/Core Measures Results/Orders Vital Signs/I&O 04/01/19 13:04 Temp 36.6 Pulse 92 Resp 20 B/P (MAP) 135/80 (98) Pulse Ox 98 O2 Delivery Room Air Blood Pressure Mean: 98 Progress Progress Note : Progress Note discussed with pt told him I did no feel that prescribing narcotics would be appropriate at that point he stood up and walked out of the ER without further discussion Departure Impression Primary Impression: Dental caries Additional Impression: Drug-seeking behavior Disposition: 07 AGAINST MEDICAL ADVICE Condition: Stable Departure-Patient Inst. Referrals: NO,LOCAL PHYSICIAN (PCP/Family) Primary Care Physician CARRIE SLATER MD Apr 01, 2019 13:43
[2019-04-01] MEDS ORDERED: CLON1TAB13 (13:54)
[2019-04-01] MEDS ORDERED: HYDR-3812 (13:54)
[2019-04-02] MEDS ORDERED: AMOX875T2 PO (08:20)
[2019-04-02] MEDS ORDERED: DICL50TA6 PO (08:20)
[2019-04-02] MEDS ORDERED: ATROPINE INJ 0.4 MG/ML SDV ONE (14:19)
== END 2019-04-01 13:17 | disposition left against medical advice (07) ==
LOC: EDUNIT# 12:53 → ER FS 12:54
DX: K02.9 Dental caries, unspecified (principal); G43.909 Migraine, unspecified, not intractable, without status migrainosus; K21.9 Gastro-esophageal reflux disease without esophagitis; F41.9 Anxiety disorder, unspecified; Z87.820 Personal history of traumatic brain injury; Z76.5 Malingerer [conscious simulation]; Z87.891 Personal history of nicotine dependence
CPT/HCPCS: 99282

== ENCOUNTER 2019-04-02 08:04 | Emergency (ER) | payer SELFPAY ==
[~2019-04-02] VITALS: Ht 177 cm; Wt 90.9 kg
[~2019-04-02 08:04] MED LIST changes: +CLON1TAB13; +HYDR-3812
--- NOTE | 2019-04-02 08:19 | ED EENT ---
History of Present Illness General Chief Complaint: Dental Problems/Pain Stated Complaint: DENTAL PAIN Source: patient Exam Limitations: no limitations History of Present Illness Date Seen by Provider: Apr 02, 2019 Time Seen by Provider: 08:14 Initial Comments Patient complains of right upper molar pain for the past week. He had a dental procedure done a week ago. This is his 6th ER visit in a week Allergies and Home Medications Allergies Coded Allergies: No Known Drug Allergies (Unverified , 10/06/16) Home Medications Amoxicillin 875 Mg Tablet, 875 MG PO BID Prescribed by: BRODY ARAUZ on 04/02/19 0820 Butalb/Acetaminophen/Caffeine 1 Each Capsule, 1 EACH PO Q4H PRN for HEADACHE Prescribed by: ROSALINA GREEN on 03/29/19 1451 Diclofenac Sodium 50 Mg Tablet.dr, 50 MG PO BID PRN for PAIN-SEVERE Prescribed by: BRODY ARAUZ on 04/02/19 0820 Donepezil HCl 10 Mg Tablet, 20 MG PO DAILY, (Reported) Fluoxetine HCl 40 Mg Capsule, 60 MG PO DAILY, (Reported) Ibuprofen 800 Mg Tablet, 800 MG PO Q8H PRN for PAIN-MILD Prescribed by: MARINA ANDERSON on 03/24/19 1836 Patient Home Medication List Home Medication List Reviewed: Yes Review of Systems Review of Systems Constitutional: no symptoms reported Eyes: No Symptoms Reported Mouth: see HPI Respiratory: no symptoms reported Cardiovascular: no symptoms reported Musculoskeletal: no symptoms reported Past Wikkrir-Hpdwxs-Iliqij Hx Patient Social History Drug of Choice: HX: THC,METH Type Used: Cigars, Cigarettes Former Smoker, Quit: Oct 06, 2013 2nd Hand Smoke Exposure: No Recent Hopitalizations: No Seasonal Allergies Seasonal Allergies: Yes Past Medical History Surgeries: 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 (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 SHUNTS/REVISIONS/REPLACEMENTS AND REMOVAL) Gallbladder, Neurological Respiratory: No Cardiac: No Neurological: Yes (HYDROCEPHALUS) Headaches /Migraines, Traumatic Brain Injury Reproductive Disorders: No Sexually Transmitted Disease: No HIV/AIDS: No Genitourinary: No Gastrointestinal: Yes Gastroesophageal Reflux, Gall Bladder Disease Musculoskeletal: Yes (SHOULDER PAIN) Endocrine: No HEENT: No Loss of Vision: Denies Hearing Impairment: Denies Cancer: No Psychosocial: Yes Anxiety Integumentary: No Blood Disorders: No Adverse Reaction/Blood Tranf: No (N/A) Physical Exam Vital Signs Vital Signs - First Documented 04/02/19 08:06 Temp 36.1 Pulse 70 Resp 18 B/P (MAP) 147/84 (105) Pulse Ox 99 Height, Weight, BMI Height: 5'10.00" Weight: 200lbs. 4.0oz. 90.318120sz; 28.00 BMI Method:Stated General Appearance: WD/WN, no apparent distress Eyes: bilateral eye PERRL, bilateral eye EOMI Nose: normal inspection Mouth/Throat: pharynx normal, other (tender right upper second molar.) Neck: supple Cardiovascular: regular rate, rhythm Respiratory: lungs clear Gastrointestinal: soft Neurologic/Psychiatric: alert Skin: normal color, warm/dry Progress/Results/Core Measures Results/Orders Vital Signs/I&O 04/02/19 04/02/19 08:06 08:24 Temp 36.1 36.1 Pulse 70 70 Resp 18 18 B/P (MAP) 147/84 (105) 147/84 (105) Pulse Ox 99 99 Departure Impression Primary Impression: Pain, dental Disposition: HOME, SELF-CARE Condition: Stable Departure-Patient Inst. Decision time for Depature: 08:17 Referrals: NO,LOCAL PHYSICIAN (PCP/Family) Primary Care Physician Patient Instructions: Dental Pain (DC) Add. Discharge Instructions: Take antibiotics and pain medicine as prescribed. See your dentist as soon as possible. Apply clove oil topically for pain. All discharge instructions reviewed with patient and/or family. Voiced understanding. Scripts Amoxicillin (Amoxicillin) 875 Mg Tablet 875 MG PO BID, #14 TAB Prov: BRODY ARAUZ MD 04/02/19 Diclofenac Sodium (Diclofenac Sodium) 50 Mg Tablet.dr 50 MG PO BID PRN for PAIN-SEVERE, #10 TAB Prov: BRODY ARAUZ MD 04/02/19 BRODY ARAUZ MD Apr 02, 2019 08:19
[2019-04-02] MEDS ORDERED: DICL50TA6 PO (08:20)
[2019-04-02] MEDS ORDERED: AMOX875T2 PO (08:20)
[2019-04-02 08:24] VITALS: BP 147/84
== END 2019-04-02 08:30 | disposition home or self-care (01) ==
LOC: EDUNIT# 08:04 → ER FS 08:05
DX: K08.89 Other specified disorders of teeth and supporting structures (principal); G43.909 Migraine, unspecified, not intractable, without status migrainosus; K21.9 Gastro-esophageal reflux disease without esophagitis; F41.9 Anxiety disorder, unspecified; Z87.891 Personal history of nicotine dependence; Z87.820 Personal history of traumatic brain injury
CPT/HCPCS: 99283

== ENCOUNTER 2019-11-26 16:10 | Emergency (ER) | payer SELFPAY ==
[~2019-11-26] VITALS: Ht 177.8 cm; Wt 92.3 kg
[~2019-11-26 16:10] MED LIST changes: +ACHD5005; +AMOX875T2 PO; +DICL50TA6 PO; -HYDR-3812; -IBUP-2055 PO; +IBUP-2473 PO; -ONDA8TAB12; +ONDA8TAB15; +QUET100T33; -QUET100T69
[2019-11-26 16:22] VITALS: BP 148/76
[2019-11-26] MEDS ORDERED: PROC-1 PO (16:23)
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
== END 2019-11-26 16:27 | disposition home or self-care (01) ==
LOC: EDUNIT# 16:10 → ER FS 16:12
DX: G43.909 Migraine, unspecified, not intractable, without status migrainosus (principal); F41.9 Anxiety disorder, unspecified; F17.210 Nicotine dependence, cigarettes, uncomplicated; F17.290 Nicotine dependence, other tobacco product, uncomplicated; Z87.820 Personal history of traumatic brain injury
CPT/HCPCS: 99282

== ENCOUNTER 2019-11-30 06:13 | Emergency (ER) | payer SELFPAY ==
[~2019-11-30] VITALS: Ht 180 cm; Wt 94.8 kg
[~2019-11-30 06:13] MED LIST changes: +PROC-1 PO
[2019-11-30] MEDS ORDERED: NS IV 1000 ML 1,000 ML IV SCH (06:30)
[2019-11-30] MEDS ORDERED: KETOROLAC 30 MG/ML VIAL IVP ONE (06:30)
[2019-11-30] MEDS ORDERED: PROCHLORPERAZINE 10 MG/2ML INJ (COMPAZINE) IV ONE (06:30)
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
--- NOTE | 2019-11-30 07:01 | Diagnostic Imaging Report ---
INDICATION: Nausea and vomiting. FINDINGS: Upright chest shows lungs to be well-aerated and clear. No pneumothorax is seen. There is no free air under the diaphragm. Upright and supine abdomen shows normal stool and gas pattern present. There is gas to the rectum without evidence of impacted stool. The stomach and small bowel are not distended. There is no organomegaly. There is what appears to be an old ENV[employer]MENT[employer]CH shunt tube looped in the abdomen. IMPRESSION: 1. No acute abnormalities. 2. Catheter likely representing old ENV[employer]MENT[employer]OR [employer]CH shunt is looped within the abdomen. Dictated by: Dictated on workstation # [id number]
[2019-11-30 07:18] LABS: HEMATOCRIT 39 % (40-54); HEMOGLOBIN 13.6 G/DL (13.3-17.7); MEAN CORPUSCULAR HEMOGLOBIN 30 PG (25-34); MEAN CORPUSCULAR HGB CONC 35 G/DL (32-36); MEAN CORPUSCULAR VOLUME 88 FL (80-99); PLATELET COUNT 263 10^3/uL (130-400); RED CELL DISTRIBUTION WIDTH 12.3 % (10.0-14.5); WHITE BLOOD COUNT 16.7 10^3/uL (4.3-11.0)
[2019-11-30 07:19] LABS: BASOPHILS % (AUTO) 0 % (0-10); EOSINOPHILS % (AUTO) 0 % (0-10); LYMPHOCYTES # (AUTO) 1.7 X 10^3 (1.0-4.0); LYMPHOCYTES % (AUTO) 10 % (12-44); MEAN PLATELET VOLUME 9.3 FL (7.4-10.4); MONOCYTES # (AUTO) 0.7 X 10^3 (0.0-1.0); MONOCYTES % (AUTO) 4 % (0-12); NEUTROPHILS # (AUTO) 14.2 X 10^3 (1.8-7.8); NEUTROPHILS % (AUTO) 85 % (42-75)
[2019-11-30 07:38] LABS: CHLORIDE 103 MMOL/L (98-107); POTASSIUM 4.3 MMOL/L (3.6-5.0); SODIUM 138 MMOL/L (135-145)
[2019-11-30 07:39] LABS: ALANINE AMINOTRANSFERASE 42 U/L (0-55); ALBUMIN 3.8 GM/DL (3.2-4.5); ALKALINE PHOSPHATASE 50 U/L (40-136); BILIRUBIN,TOTAL 0.2 MG/DL (0.1-1.0); BUN/CREATININE RATIO 16; CALCIUM 9.3 MG/DL (8.5-10.1); CARBON DIOXIDE 25 MMOL/L (21-32); GFR ESTIMATED > 60; GLUCOSE 162 MG/DL (70-105); LIPASE 34 U/L (8-78); TOTAL PROTEIN 6.1 GM/DL (6.4-8.2)
[2019-11-30 07:46] LABS: BAND NEUTROPHILS 1 %; LYMPHOCYTES % (MANUAL) 17 %; NEUTROPHILS % (MANUAL) 77 %
[2019-11-30 07:47] LABS: BASOPHILS % (MANUAL) 0 %; EOSINOPHILS % (MANUAL) 0 %; MONOCYTES % (MANUAL) 5 %
--- NOTE | 2019-11-30 08:30 | NUR ---
Pt resting quietly in bed with eyes closed at this time.
--- NOTE | 2019-11-30 09:41 | NUR ---
Pt assisted to restroom. Urine sample provided. While walking back to room, pt reporting pain is increasing and requesting pain medication. Physician notified.
[2019-11-30 09:54] LABS: CLARITY,URINE CLEAR; COLOR,URINE YELLOW; PH,URINE 7.5 (5-9)
[2019-11-30 09:55] LABS: BACTERIA,URINE NEGATIVE /HPF; BILIRUBIN,URINE NEGATIVE (NEGATIVE); GLUCOSE, URINE (UA) 2+ (NEGATIVE); KETONES,URINE NEGATIVE (NEGATIVE); LEUKOCYTE ESTERASE ,URINE NEGATIVE (NEGATIVE); NITRITE,URINE NEGATIVE (NEGATIVE); PROTEIN,URINE NEGATIVE (NEGATIVE); RBC,URINE RARE /HPF; SQUAMOUS EPITHELIAL CELL,UR RARE /HPF
[2019-11-30 10:16] VITALS: BP 129/81
== END 2019-11-30 10:17 | disposition home or self-care (01) ==
LOC: EDUNIT# 06:13 → ER FS 06:18
DX: S00.93XA Contusion of unspecified part of head, initial encounter (principal); F41.9 Anxiety disorder, unspecified; G89.29 Other chronic pain; F17.290 Nicotine dependence, other tobacco product, uncomplicated; F17.210 Nicotine dependence, cigarettes, uncomplicated; Z76.5 Malingerer [conscious simulation]; Z87.820 Personal history of traumatic brain injury; Z86.69 Personal history of other diseases of the nervous system and sense organs; X58.XXXA Exposure to other specified factors, initial encounter
CPT/HCPCS: 36415; 74022; 80053; 81000; 83690; 85007; 85025; 85027

== ENCOUNTER 2020-07-03 08:25 | Emergency (ER) | payer MEDICAID ==
[~2020-07-03] VITALS: Ht 175.2 cm; Wt 83.6 kg
[2020-07-03] MEDS ORDERED: CLIN300C12 PO (10:56)
--- NOTE | 2020-07-03 10:57 | ED General ---
General Chief Complaint: General Problems/Pain Stated Complaint: FACE SWOLLEN, R SHOULDER PAIN Nursing Triage Note: AMB TO ROOM REPORTS HAD TOOTH PULLED IN HEI[place] AREA ON THURSDAY. WAS SEEN YESTRDAY IN FOLLOW UP AND STARED ON AMOXIL. ALSO HAS BEEN MOVING AND HAS CHRONIC SHOULDER PAIN WOULD LIKE TO BE SEEN FOR THAT. Nursing Sepsis Screen: No Definite Risk Source of Information: Patient Exam Limitations: No Limitations History of Present Illness Date Seen by Provider: Jul 03, 2020 Time Seen by Provider: 10:15 Initial Comments This 40-year-old man presents to the emergency room with complaints of pain and swelling along the right jaw after dental extractions 4 days ago. He was seen by the dentist in follow-up yesterday and started on amoxicillin. He complains of persistent pain. He reports only receiving 10 Percocet and those are gone. He also complains of chronic right shoulder pain and new mid back pain. He denies any recent trauma contributing to those pains. Allergies and Home Medications Allergies Coded Allergies: No Known Drug Allergies (Unverified , 10/06/16) Home Medications Amoxicillin 875 Mg Tablet, 875 MG PO BID Prescribed by: BRODY ARAUZ on 04/02/19 0820 Butalb/Acetaminophen/Caffeine 1 Each Capsule, 1 EACH PO Q4H PRN for HEADACHE Prescribed by: ROSALINA GREEN on 03/29/19 1451 Clindamycin HCl 300 Mg Capsule, 300 MG PO Q6H Prescribed by: AISHWARYA WEBB on 07/03/20 1056 Diclofenac Sodium 50 Mg Tablet.dr, 50 MG PO BID PRN for PAIN-SEVERE Prescribed by: BRODY ARAUZ on 04/02/19 0820 Donepezil HCl 10 Mg Tablet, 20 MG PO DAILY, (Reported) Fluoxetine HCl 40 Mg Capsule, 60 MG PO DAILY, (Reported) Ibuprofen 800 Mg Tablet, 800 MG PO Q8H PRN for PAIN-MILD Prescribed by: MARINA ANDERSON on 03/24/19 1836 Prochlorperazine Maleate 10 Mg Tablet, 10 MG PO Q8H Prescribed by: LUIS ARMANDO MALIK on 11/26/19 1623 Patient Home Medication List Home Medication List Reviewed: Yes Review of Systems Review of Systems Constitutional: no symptoms reported EENTM: see HPI Respiratory: no symptoms reported Cardiovascular: no symptoms reported Gastrointestinal: no symptoms reported Genitourinary: no symptoms reported Musculoskeletal: see HPI Skin: no symptoms reported Psychiatric/Neurological: No Symptoms Reported Hematologic/Lymphatic: No Symptoms Reported Immunological/Allergic: no symptoms reported Past Rrvbkyy-Srfurb-Sxgdbv Hx Past Med/Social Hx: Reviewed Nursing Past Med/Soc Hx Patient Social History Alcohol Use: Denies Use Recreational Drug Use: No Drug of Choice: HX: THC,METH- marijuana Smoking Status: Former Smoker Type Used: Cigars, Cigarettes Former Smoker, Quit: Oct 06, 2013 2nd Hand Smoke Exposure: No Recent Foreign Travel: No Contact w/Someone Who Travel: No Recent Infectious Disease Expo: No Recent Hopitalizations: No Seasonal Allergies Seasonal Allergies: Yes Past Medical History 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) Gallbladder, Neurological Respiratory: No Cardiac: No Neurological: Yes (HYDROCEPHALUS) Headaches /Migraines, Traumatic Brain Injury Reproductive Disorders: No Sexually Transmitted Disease: No HIV/AIDS: No Genitourinary: No Gastrointestinal: Yes Gastroesophageal Reflux, Gall Bladder Disease Musculoskeletal: Yes (SHOULDER PAIN) Endocrine: No HEENT: No Loss of Vision: Denies Hearing Impairment: Denies Cancer: No Psychosocial: Yes Anxiety Integumentary: No Blood Disorders: No Adverse Reaction/Blood Tranf: No (N/A) Physical Exam Vital Signs Vital Signs - First Documented 07/03/20 07/03/20 09:21 11:04 Temp 36.4 Pulse 89 Resp 18 B/P (MAP) 129/81 (97) Pulse Ox 98 O2 Delivery Room Air Capillary Refill : Less Than 3 Seconds Height, Weight, BMI Height: 5'10.00" Weight: 200lbs. 4.0oz. 90.955405hy; 27.00 BMI Method:Stated General Appearance: No Apparent Distress, WD/WN HEENT: PERRL/EOMI, TMs Normal, Other (Sockets sutured with no active bleeding or purulent drainage. Notable edema along the right jawline with associated tenderness. No overt abscess was identified.) Neck: Normal Inspection, Non Tender; No Lymphadenopathy (L), No Lymphadenopathy (R) Respiratory: Lungs Clear, Normal Breath Sounds, No Accessory Muscle Use Cardiovascular: Regular Rate, Rhythm, No Edema, No Murmur Gastrointestinal: Non Tender; No Distended Back: Normal Inspection, No Vertebral Tenderness (Throughout the lower thoracic spine) Extremity: Normal Inspection, No Pedal Edema, Other (Tenderness in the right shoulder joint. Range of motion modestly limited with abduction.) Neurologic/Psychiatric: Alert, Oriented x3, No Motor/Sensory Deficits, Normal Mood/Affect, nurse transitional II-XII Norm as Tested Skin: Normal Color, Warm/Dry Progress/Results/Core Measures Suspected Sepsis Recent Fever Within 48 Hours: No Infection Criteria Present: None New/Unexplained Altered Menta: No Sepsis Screen: No Definite Risk SIRS Temperature: Pulse: 89 Respiratory Rate: 18 Blood Pressure 129 /81 Mean: 97 Results/Orders Vital Signs/I&O Capillary Refill : Less Than 3 Seconds Blood Pressure Mean: 97 Progress Note : Progress Note Patient was offered a shot of Toradol followed by Ultram for treatment of his pain. He declined this offer and only wanted stronger opioids. Out of concern for possible infection at the site of his dental extractions, clindamycin was added to his antibiotic therapy. Departure Impression Primary Impression: Postoperative pain Additional Impressions: Facial swelling Mid back pain Right shoulder pain Qualified Codes: M25.511 - Pain in right shoulder; G89.29 - Other chronic pain Disposition: 01 HOME, SELF-CARE Condition: Stable Departure-Patient Inst. Decision time for Depature: 10:54 Referrals: NO,LOCAL PHYSICIAN (PCP/Family) Primary Care Physician Patient Instructions: Upper Back Pain Add. Discharge Instructions: Continue diclofenac as previously prescribed. Add Tylenol or your prescribed Percocet to the diclofenac if needed for further pain control. Gentle heat to your back may help you relax. To further manage possible infection of your dental extractions, add clindamycin as prescribed. Follow-up with your dentist for further dental related concerns. Return to care if you have worsening symptoms or new symptoms such as fever. All discharge instructions reviewed with patient and/or family. Voiced understanding. Scripts Clindamycin HCl (Clindamycin HCl) 300 Mg Capsule 300 MG PO Q6H, #42 CAP Prov: AISHWARYA BURROUGHS MD 07/03/20 AISHWARYA BURROUGHS MD Jul 03, 2020 10:57
[2020-07-03 11:04] VITALS: BP 129/81
== END 2020-07-03 11:04 | disposition home or self-care (01) ==
LOC: EDUNIT# 08:25 → ER 08:27
DX: G89.18 Other acute postprocedural pain (principal); R22.0 Localized swelling, mass and lump, head; M54.6 Pain in thoracic spine; M25.511 Pain in right shoulder; F41.9 Anxiety disorder, unspecified; Z87.820 Personal history of traumatic brain injury; Z87.891 Personal history of nicotine dependence
CPT/HCPCS: 99281

== ENCOUNTER 2020-07-04 13:03 | Emergency (ER) | payer MEDICAID ==
[~2020-07-04] VITALS: Ht 175.3 cm; Wt 88.5 kg
[~2020-07-04 13:03] MED LIST changes: +CLIN300C12 PO
--- NOTE | 2020-07-04 14:44 | ED General ---
General Chief Complaint: Head/Cervical Problems Stated Complaint: [place],HX HYDROCEPHALUS Nursing Triage Note: PT AMBULATES TO TRIAGE WITH C/O HEADACHE ET DIZZINESS. PT REPORTS UPON RISE ON THIS DAY, HE BEAGN TO EXPERIECE HEADACHE ET NOTICIED "KNOT" AROUND HIS DRAIN TUBE FROM A BIRD RAISER SHUNT THAT WAS REMOVED. REPORTS DISCOMFORT RADIATES DISTALLY DOWN BACK OF NECK. REPORTS HEADACHE TO BE ASSOCIATED WITH DIZZINESS SENTATION. REPORTS HE WAS SENT FROM [facility] TO BE SEEN IN THIS ER FOR FURTHER EVALUATION ET CARE. DENIES FEVER, CHILLS, COUGH, OR SOA. A&OX4. Nursing Sepsis Screen: No Definite Risk Source of Information: Patient Exam Limitations: No Limitations History of Present Illness Date Seen by Provider: Jul 04, 2020 Time Seen by Provider: 14:30 Initial Comments This is a well appearing 40-year-old male who presents to ER with complaints of headache and right ear pain that started around 10:00 this morning. States he was diagnosed with hydrocephalus in 2007 and had a intracranial shunt placed by Dr. Amaya at and the valve was removed by Dr. Tao at [facility] in 2012. Today's headache is same as previous headaches. However, states last one was one year ago. Rates 8 out of 10, describes as pressure/throbbing pain on the right side of his head. Additionally, he reports a knot on the back of his head behind his right ear that feels bigger then usual. Reports dizziness, without loss of consciousness and photophobia. Has chronic nausea, which he takes Zofran 4mg for and was last taken at 4:00 this morning. Denies fever, chills, weakness, loss of balance, vomiting, chest pain, abdominal pain. Severity: Moderate Allergies and Home Medications Allergies Coded Allergies: No Known Drug Allergies (Unverified , 10/06/16) Home Medications Amoxicillin 875 Mg Tablet, 875 MG PO BID Prescribed by: BRODY ARAUZ on 04/02/19 0820 Butalb/Acetaminophen/Caffeine 1 Each Capsule, 1 EACH PO Q4H PRN for HEADACHE Prescribed by: ROSALINA GREEN on 03/29/19 1451 Clindamycin HCl 300 Mg Capsule, 300 MG PO Q6H Prescribed by: AISHWARYA WEBB on 07/03/20 1056 Diclofenac Sodium 50 Mg Tablet.dr, 50 MG PO BID PRN for PAIN-SEVERE Prescribed by: BRODY ARAUZ on 04/02/19 0820 Donepezil HCl 10 Mg Tablet, 20 MG PO DAILY, (Reported) Fluoxetine HCl 40 Mg Capsule, 60 MG PO DAILY, (Reported) Ibuprofen 800 Mg Tablet, 800 MG PO Q8H PRN for PAIN-MILD Prescribed by: MARINA ANDERSON on 03/24/19 1836 Prochlorperazine Maleate 10 Mg Tablet, 10 MG PO Q8H Prescribed by: LUIS ARMANDO MALIK on 11/26/19 1623 Patient Home Medication List Home Medication List Reviewed: Yes Review of Systems Review of Systems Constitutional: see HPI EENTM: see HPI Respiratory: no symptoms reported Cardiovascular: no symptoms reported Gastrointestinal: see HPI Genitourinary: no symptoms reported Musculoskeletal: no symptoms reported Skin: no symptoms reported Psychiatric/Neurological: Other (forgetfulness ) Hematologic/Lymphatic: No Symptoms Reported Immunological/Allergic: no symptoms reported Past Mqjdepw-Rkvqgu-Vfkwep Hx Patient Social History Alcohol Use: Denies Use Recreational Drug Use: No Drug of Choice: HX: THC,METH- marijuana Smoking Status: Former Smoker Type Used: Cigars, Cigarettes Former Smoker, Quit: Oct 06, 2013 2nd Hand Smoke Exposure: No Recent Foreign Travel: No Contact w/Someone Who Travel: No Recent Infectious Disease Expo: No Recent Hopitalizations: No Seasonal Allergies Seasonal Allergies: Yes Past Medical History Surgeries: Yes (BIRD RAISER SHUNTS/REVISIONS/REPLACEMENTS AND REMOVAL) Gallbladder, Neurological Respiratory: No Cardiac: No Neurological: Yes (HYDROCEPHALUS) Headaches /Migraines, Traumatic Brain Injury Reproductive Disorders: No Sexually Transmitted Disease: No HIV/AIDS: No Genitourinary: No Gastrointestinal: Yes Gastroesophageal Reflux, Gall Bladder Disease Musculoskeletal: Yes (SHOULDER PAIN) Endocrine: No HEENT: No Loss of Vision: Denies Hearing Impairment: Denies Cancer: No Psychosocial: Yes Anxiety Integumentary: No Blood Disorders: No Adverse Reaction/Blood Tranf: No (N/A) Physical Exam Vital Signs Vital Signs - First Documented 07/04/20 14:06 Temp 36.2 Pulse 76 Resp 18 B/P (MAP) 111/76 (88) Pulse Ox 100 O2 Delivery Room Air Capillary Refill : Less Than 3 Seconds Height, Weight, BMI Height: 5'10.00" Weight: 200lbs. 4.0oz. 90.909505id; 28.00 BMI Method:Stated General Appearance: No Apparent Distress, WD/WN Eyes: Bilateral Eye Normal Inspection, Bilateral Eye PERRL, Bilateral Eye EOMI, Bilateral Eye Photophobia HEENT: PERRL/EOMI, Pharynx Normal Neck: Full Range of Motion, Non Tender Respiratory: Lungs Clear, Normal Breath Sounds Cardiovascular: Regular Rate, Rhythm, No Edema, Normal Peripheral Pulses Gastrointestinal: Normal Bowel Sounds, Non Tender, Soft Back: Normal Inspection Extremity: Normal Capillary Refill, Normal Inspection, Normal Range of Motion, No Pedal Edema Neurologic/Psychiatric: Alert, Oriented x3, No Motor/Sensory Deficits, Normal Mood/Affect, digital recruiter II-XII Norm as Tested Skin: Normal Color, Warm/Dry Progress/Results/Core Measures Suspected Sepsis Recent Fever Within 48 Hours: No Infection Criteria Present: None New/Unexplained Altered Menta: No Sepsis Screen: No Definite Risk SIRS Temperature: Pulse: 76 Respiratory Rate: 18 Laboratory Tests 07/04/20 15:05: White Blood Count 6.4 Blood Pressure 111 /76 Mean: 88 Laboratory Tests 07/04/20 15:05: Creatinine 1.18, Platelet Count 318, Total Bilirubin 0.3 Results/Orders Lab Results Laboratory Tests Test 07/04/20 15:05 Range/Units White Blood Count 6.4 4.3-11.0 10^3/uL Red Blood Count 4.52 4.30-5.52 10^6/uL Hemoglobin 13.5 13.3-17.7 g/dL Hematocrit 41 40-54 % Mean Corpuscular Volume 91 80-99 fL Mean Corpuscular Hemoglobin 30 25-34 pg Mean Corpuscular Hemoglobin Concent 33 32-36 g/dL Red Cell Distribution Width 14.1 10.0-14.5 % Platelet Count 318 130-400 10^3/uL Mean Platelet Volume 8.9 L 9.0-12.2 fL Immature Granulocyte % (Auto) 1 % Neutrophils (%) (Auto) 50 42-75 % Lymphocytes (%) (Auto) 37 12-44 % Monocytes (%) (Auto) 10 0-12 % Eosinophils (%) (Auto) 2 0-10 % Basophils (%) (Auto) 1 0-10 % Neutrophils # (Auto) 3.2 1.8-7.8 10^3/uL Lymphocytes # (Auto) 2.3 1.0-4.0 10^3/uL Monocytes # (Auto) 0.6 0.0-1.0 10^3/uL Eosinophils # (Auto) 0.1 0.0-0.3 10^3/uL Basophils # (Auto) 0.0 0.0-0.1 10^3/uL Immature Granulocyte # (Auto) 0.1 0.0-0.1 10^3/uL Sodium Level 137 135-145 MMOL/L Potassium Level 4.2 3.6-5.0 MMOL/L Chloride Level 111 H 98-107 MMOL/L Carbon Dioxide Level 21 21-32 MMOL/L Anion Gap 5 5-14 MMOL/L Blood Urea Nitrogen 17 7-18 MG/DL Creatinine 1.18 0.60-1.30 MG/DL Estimat Glomerular Filtration Rate > 60 BUN/Creatinine Ratio 14 Glucose Level 109 H 70-105 MG/DL Calcium Level 8.9 8.5-10.1 MG/DL Corrected Calcium 8.7 8.5-10.1 MG/DL Total Bilirubin 0.3 0.1-1.0 MG/DL Aspartate Amino Transf (AST/SGOT) 43 H 5-34 U/L Alanine Aminotransferase (ALT/SGPT) 76 H 0-55 U/L Alkaline Phosphatase 81 40-136 U/L Total Protein 7.5 6.4-8.2 GM/DL Albumin 4.3 3.2-4.5 GM/DL My Orders Orders - KOMAL [employer]URING TECHNICIAN Ct Head Wo (07/04/20 14:35) Cbc With Automated Diff (07/04/20 14:35) Comprehensive Metabolic Panel (07/04/20 14:35) Ondansetron Oral Dissolve Tab (Zofran (07/04/20 14:45) Morphine Injection (Morphine Injection (07/04/20 15:19) Ketorolac Injection (Toradol Injection) (07/04/20 15:30) Orphenadrine Inj (Ed Only) (Norflex Inje (07/04/20 15:30) Diphenhydramine Injection (Benadryl Inje (07/04/20 15:30) Medications Given in ED Current Medications Medications Dose Ordered Sig/Daquan Route Start Time Stop Time Status Last Admin Dose Admin Diphenhydramine HCl 50 mg ONCE ONCE IVP 07/04/20 15:30 07/04/20 15:31 DC 07/04/20 15:28 50 MG Ketorolac Tromethamine 30 mg ONCE ONCE IVP 07/04/20 15:30 07/04/20 15:31 DC 07/04/20 15:30 30 MG Ondansetron HCl 4 mg ONCE ONCE PO 07/04/20 14:45 07/04/20 14:46 DC 07/04/20 15:19 4 MG Orphenadrine Citrate 30 mg ONCE ONCE IVP 07/04/20 15:30 07/04/20 15:31 DC 07/04/20 15:29 30 MG Vital Signs/I&O 07/04/20 07/04/20 14:06 16:00 Temp 36.2 36.2 Pulse 76 93 Resp 18 18 B/P (MAP) 111/76 (88) 121/61 (88) Pulse Ox 100 100 O2 Delivery Room Air Room Air Capillary Refill : Less Than 3 Seconds Blood Pressure Mean: 88 Progress Note : Progress Note Will obtain CT head and basic labs d/t history of hydrocephalus. Neuro exam normal, gait normal. No concerning findings noted on exam. CT head shows no acute process. Discussed this with the patient and he reports this feels like one of his migraines. Reports relief of previous migraines with Benadry and morphine. Orders placed for Benadryl 50mg, morphine 2 mg, and Toradol 15 mg IV push. Instructed to follow-up with his primary care provider for persistent migraines and follow-up with his neurologist for any concerning symptoms. Reviewed his discharge plan and he is agreeable with plan of care. Diagnostic Imaging Diagonstic Imaging: CT Plain Films/CT/US/NM/MRI: head Comments NAME: MAURIZIO PARRA [facility] REC#: [id number] PT STATUS: REG ER : 1980 PHYSICIAN: KOMAL DIEZT [employer]URING TECHNICIAN ADMIT DATE: 07/04/20/ER Signed Date of Exam:07/04/20 CT HEAD WO PROCEDURE: CT head without contrast. TECHNIQUE: Multiple contiguous axial images were obtained through the brain without the use of intravenous contrast. Auto Exposure Controls were utilized during the CT exam to meet ALARA standards for radiation dose reduction. INDICATION: Blurred vision, head pain, ear pain. Compared with head CT dated 03/29/2019. FINDINGS: Chronic area of high right frontal lobe cortical encephalomalacia stable. The magnitude and configuration of the ventriculomegaly is unchanged from prior, no periventricular edema. No sulcal effacement. The basilar cisterns are patent. There is no hemorrhage. Remnants of shunt tubing catheter along the right scalp noted. Old miguel holes bilaterally chronic. No acute-appearing abnormality. There is no mastoid effusion. The middle ear cavities clear bilaterally and the external auditory canals unremarkable. The orbits and paranasal sinuses nonacute. IMPRESSION: 1. Chronic ventriculomegaly and postsurgical change, chronic area of right frontal lobe encephalomalacia. No hemorrhage, edema or acute-appearing pathology. 2. No findings to explain the presenting complaint of right ear pain. Dictated by: Dictated on workstation # [id number] Dict: 07/04/20 1449 Trans: 07/04/20 1500 CVB [id number] Interpreted by: CAPRI BALBUENA Electronically signed by: CAPRI BALBUENA 07/04/20 1500 Departure Impression Primary Impression: Chronic headaches Additional Impression: Migraine Disposition: 01 HOME, SELF-CARE Condition: Improved Departure-Patient Inst. Decision time for Depature: 15:22 Referrals: NO,LOCAL PHYSICIAN (PCP/Family) Primary Care Physician Patient Instructions: Migraines (DC) Add. Discharge Instructions: Plan: 1. Discharge home. 2. May take Tylenol or Ibuprofen as needed for pain per package instructions. 3. Follow up with your primary care provider if your symptoms persist. 4. Return for any new or concerning symptoms. All discharge instructions reviewed with patient and/or family. Voiced understanding. KOMAL [employer]UFACTURING TECHNICIAN Jul 04, 2020 14:44
[2020-07-04] MEDS ORDERED: ONDANSETRON 4 MG (ZOFRAN) ORAL DISSOLVE TAB PO ONE (14:45)
--- NOTE | 2020-07-04 14:55 | Diagnostic Imaging Report ---
PROCEDURE: CT head without contrast. TECHNIQUE: Multiple contiguous axial images were obtained through the brain without the use of intravenous contrast. Auto Exposure Controls were utilized during the CT exam to meet ALARA standards for radiation dose reduction. INDICATION: Blurred vision, head pain, ear pain. Compared with head CT dated 03/29/2019. FINDINGS: Chronic area of high right frontal lobe cortical encephalomalacia stable. The magnitude and configuration of the ventriculomegaly is unchanged from prior, no periventricular edema. No sulcal effacement. The basilar cisterns are patent. There is no hemorrhage. Remnants of shunt tubing catheter along the right scalp noted. Old miguel holes bilaterally chronic. No acute-appearing abnormality. There is no mastoid effusion. The middle ear cavities clear bilaterally and the external auditory canals unremarkable. The orbits and paranasal sinuses nonacute. IMPRESSION: 1. Chronic ventriculomegaly and postsurgical change, chronic area of right frontal lobe encephalomalacia. No hemorrhage, edema or acute-appearing pathology. 2. No findings to explain the presenting complaint of right ear pain. Dictated by: Dictated on workstation # [id number]
[2020-07-04 15:18] LABS: BASOPHILS % (AUTO) 1 % (0-10); EOSINOPHILS # (AUTO) 0.1 10^3/uL (0.0-0.3); EOSINOPHILS % (AUTO) 2 % (0-10); HEMATOCRIT 41 % (40-54); HEMOGLOBIN 13.5 g/dL (13.3-17.7); LYMPHOCYTES # (AUTO) 2.3 10^3/uL (1.0-4.0); LYMPHOCYTES % (AUTO) 37 % (12-44); MEAN CORPUSCULAR HEMOGLOBIN 30 pg (25-34); MEAN CORPUSCULAR HGB CONC 33 g/dL (32-36); MEAN CORPUSCULAR VOLUME 91 fL (80-99); MEAN PLATELET VOLUME 8.9 fL (9.0-12.2); MONOCYTES # (AUTO) 0.6 10^3/uL (0.0-1.0); MONOCYTES % (AUTO) 10 % (0-12); NEUTROPHILS # (AUTO) 3.2 10^3/uL (1.8-7.8); NEUTROPHILS % (AUTO) 50 % (42-75); PLATELET COUNT 318 10^3/uL (130-400); WHITE BLOOD COUNT 6.4 10^3/uL (4.3-11.0)
[2020-07-04] MEDS ORDERED: morphine INJ 10 MG/ML 1ML (SYR OR VIAL) IVP STA (15:19)
[2020-07-04] MEDS ORDERED: ORPHENADRINE 60 MG/2 ML (NORFLEX) AMP (ED ONLY) IVP ONE (15:30)
[2020-07-04] MEDS ORDERED: KETOROLAC 30 MG/ML VIAL IVP ONE (15:30)
[2020-07-04] MEDS ORDERED: diphenhydrAMINE 50 MG/ML INJ (BENADRYL) IVP ONE (15:30)
[2020-07-04 15:48] LABS: ALBUMIN 4.3 GM/DL (3.2-4.5)
[2020-07-04 15:49] LABS: CHLORIDE 111 MMOL/L (98-107); POTASSIUM 4.2 MMOL/L (3.6-5.0); SODIUM 137 MMOL/L (135-145)
[2020-07-04 15:50] LABS: CALCIUM 8.9 MG/DL (8.5-10.1)
[2020-07-04 15:51] LABS: GLUCOSE 109 MG/DL (70-105); TOTAL PROTEIN 7.5 GM/DL (6.4-8.2)
[2020-07-04 15:52] LABS: CARBON DIOXIDE 21 MMOL/L (21-32)
[2020-07-04 15:53] LABS: BILIRUBIN,TOTAL 0.3 MG/DL (0.1-1.0)
[2020-07-04 15:54] LABS: ALKALINE PHOSPHATASE 81 U/L (40-136)
[2020-07-04 15:55] LABS: CREATININE SERUM 1.18 MG/DL (0.60-1.30); GFR ESTIMATED > 60
[2020-07-04 15:56] LABS: BUN/CREATININE RATIO 14
[2020-07-04 15:57] LABS: ALANINE AMINOTRANSFERASE 76 U/L (0-55)
[2020-07-04 16:00] VITALS: BP 121/61
== END 2020-07-04 16:00 | disposition home or self-care (01) ==
LOC: ER 13:03
DX: G43.909 Migraine, unspecified, not intractable, without status migrainosus (principal); F41.9 Anxiety disorder, unspecified; Z87.820 Personal history of traumatic brain injury; Z87.891 Personal history of nicotine dependence
CPT/HCPCS: 36415; 70450; 80053; 85025

== ENCOUNTER 2020-07-06 16:55 | Emergency (ER) | payer MEDICAID ==
[~2020-07-06] VITALS: Ht 177 cm; Wt 86.0 kg
[2020-07-06 17:22] VITALS: BP 146/90
--- NOTE | 2020-07-06 17:23 | ED EENT ---
History of Present Illness General Chief Complaint: Dental Problems/Pain Stated Complaint: R SHOULDER/BACK PAIN;MOUTH PAIN;HEADACHE Source: patient Exam Limitations: no limitations History of Present Illness Date Seen by Provider: Jul 06, 2020 Time Seen by Provider: 17:20 Initial Comments to ER with right lower dental pain after having a tooth extraction and sutures placed a couple of days ago. The sutures of been in place for 1 week and he would like them removed. He also has some right shoulder pain which she states is chronic related to a labrum tear and he is already scheduled for surgery. He also reports some low back pain and a headache. Timing/Duration: abrupt Severity: moderate Location: mouth Allergies and Home Medications Allergies Coded Allergies: No Known Drug Allergies (Unverified , 10/06/16) Home Medications Amoxicillin 875 Mg Tablet, 875 MG PO BID Prescribed by: BRODY ARAUZ on 04/02/19 0820 Butalb/Acetaminophen/Caffeine 1 Each Capsule, 1 EACH PO Q4H PRN for HEADACHE Prescribed by: ROSALINA GREEN on 03/29/19 1451 Clindamycin HCl 300 Mg Capsule, 300 MG PO Q6H Prescribed by: AISHWARYA WEBB on 07/03/20 1056 Diclofenac Sodium 50 Mg Tablet.dr, 50 MG PO BID PRN for PAIN-SEVERE Prescribed by: BRODY ARAUZ on 04/02/19 0820 Donepezil HCl 10 Mg Tablet, 20 MG PO DAILY, (Reported) Fluoxetine HCl 40 Mg Capsule, 60 MG PO DAILY, (Reported) Ibuprofen 800 Mg Tablet, 800 MG PO Q8H PRN for PAIN-MILD Prescribed by: MARINA ANDERSON on 03/24/19 1836 Prochlorperazine Maleate 10 Mg Tablet, 10 MG PO Q8H Prescribed by: LUIS ARMANDO MALIK on 11/26/19 1623 Patient Home Medication List Home Medication List Reviewed: Yes Review of Systems Review of Systems Constitutional: see HPI Eyes: No Symptoms Reported Ears: No Symptoms Reported Nose: no symptoms reported Mouth: no symptoms reported Throat: no symptoms reported Cardiovascular: no symptoms reported Musculoskeletal: no symptoms reported Skin: no symptoms reported Past Hxfrzup-Fbsyxw-Byhpsn Hx Patient Social History Drug of Choice: HX: THC,METH- marijuana Type Used: Cigars, Cigarettes Former Smoker, Quit: Oct 06, 2013 2nd Hand Smoke Exposure: No Recent Foreign Travel: No Contact w/Someone Who Travel: No Recent Hopitalizations: No Seasonal Allergies Seasonal Allergies: Yes Past Medical History 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/REPLACEMENTS AND REMOVAL) Gallbladder, Neurological Respiratory: No Cardiac: No Neurological: Yes (HYDROCEPHALUS) Headaches /Migraines, Traumatic Brain Injury Reproductive Disorders: No Sexually Transmitted Disease: No HIV/AIDS: No Genitourinary: No Gastrointestinal: Yes Gastroesophageal Reflux, Gall Bladder Disease Musculoskeletal: Yes (SHOULDER PAIN) Endocrine: No HEENT: No Loss of Vision: Denies Hearing Impairment: Denies Cancer: No Psychosocial: Yes Anxiety Integumentary: No Blood Disorders: No Adverse Reaction/Blood Tranf: No (N/A) Physical Exam Height, Weight, BMI Height: 5'10.00" Weight: 200lbs. 4.0oz. 90.476986do; 28.00 BMI Method:Stated General Appearance: WD/WN, no apparent distress Eyes: bilateral eye normal inspection, bilateral eye PERRL, bilateral eye EOMI Ears: bilateral ear auricle normal, bilateral ear canal normal, bilateral ear TM normal Mouth/Throat: other (silk sutures were removed from the rightmandibular gingiva.) Neurologic/Psychiatric: alert, normal mood/affect, oriented x 3 Skin: normal color, warm/dry Departure Communication (Admissions) patient was offered intramuscular Toradol and Norflex, states he doesn't want anything intramuscular and he would like IV morphine like he had the other day. Advised him I was not able to do that, he informs me that "this is crazy" and he will leave. Impression Primary Impression: Chronic pain Disposition: 07 AGAINST MEDICAL ADVICE Condition: Against Medical Advice Departure-Patient Inst. Referrals: NO,LOCAL PHYSICIAN (PCP/Family) Primary Care Physician MANUEL RED APRN Jul 06, 2020 17:23
[2020-07-06] MEDS ORDERED: KETOROLAC 60 MG/2 ML VIAL IM ONE (17:30)
[2020-07-06] MEDS ORDERED: LIDOCAINE 2% VISCOUS 15 ML UDC PO ONE (17:30)
[2020-07-06] MEDS ORDERED: ORPHENADRINE 60 MG/2 ML (NORFLEX) AMP (ED ONLY) IM ONE (17:30)
== END 2020-07-06 17:22 | disposition left against medical advice (07) ==
LOC: EDUNIT# 16:55 → ER 17:00
DX: G89.29 Other chronic pain (principal); K08.89 Other specified disorders of teeth and supporting structures; F41.9 Anxiety disorder, unspecified; Z87.820 Personal history of traumatic brain injury; Z87.891 Personal history of nicotine dependence
CPT/HCPCS: 99282

== ENCOUNTER 2020-07-09 11:33 | Emergency (ER) | payer MEDICAID ==
[~2020-07-09] VITALS: Ht 177.8 cm; Wt 86.2 kg
[2020-07-09 12:03] VITALS: BP 149/92
--- NOTE | 2020-07-09 12:10 | ED Neck-Back Pain/Injury ---
General Stated Complaint: R SHOULDER PAIN, NECK PAIN Source of Information: Patient Exam Limitations: No Limitations History of Present Illness Date Seen by Provider: Jul 09, 2020 Time Seen by Provider: 12:07 Initial Comments To ER with reports of pain in his head and neck and right arm after he fell at home. No loss of consciousness. He has been seen here several times in the past few weeks for the similar complaints of head neck and shoulder pain. Most recently a few days ago when I saw him he left AGAINST MEDICAL ADVICE when he was offered Toradol and Norflex instead of iv morphine as per his request Location: C-Spine, Paraspinous Muscles Timing/Duration: 1-3 Hours Severity: Moderate Pain/Injury Location: Neck Method of Injury: Unknown Allergies and Home Medications Allergies Coded Allergies: No Known Drug Allergies (Unverified , 10/06/16) Home Medications Amoxicillin 875 Mg Tablet, 875 MG PO BID Prescribed by: BRODY ARAUZ on 04/02/19 0820 Butalb/Acetaminophen/Caffeine 1 Each Capsule, 1 EACH PO Q4H PRN for HEADACHE Prescribed by: ROSALINA GREEN on 03/29/19 1451 Clindamycin HCl 300 Mg Capsule, 300 MG PO Q6H Prescribed by: AISHWARYA WEBB on 07/03/20 1056 Diclofenac Sodium 50 Mg Tablet.dr, 50 MG PO BID PRN for PAIN-SEVERE Prescribed by: BRODY ARAUZ on 04/02/19 0820 Donepezil HCl 10 Mg Tablet, 20 MG PO DAILY, (Reported) Fluoxetine HCl 40 Mg Capsule, 60 MG PO DAILY, (Reported) Ibuprofen 800 Mg Tablet, 800 MG PO Q8H PRN for PAIN-MILD Prescribed by: MARINA ANDERSON on 03/24/19 1836 Prochlorperazine Maleate 10 Mg Tablet, 10 MG PO Q8H Prescribed by: LUIS ARMANDO MALIK on 11/26/19 1623 Patient Home Medication List Home Medication List Reviewed: Yes Review of Systems Constitutional: see HPI EENTM: see HPI Respiratory: no symptoms reported Cardiovascular: no symptoms reported Genitourinary: no symptoms reported Musculoskeletal: see HPI, neck pain Skin: no symptoms reported Psychiatric/Neurological: No Symptoms Reported Past Snhwpac-Topiaq-Tfakni Hx Patient Social History Drug of Choice: HX: THC,METH- marijuana Type Used: Cigars, Cigarettes Former Smoker, Quit: Oct 06, 2013 2nd Hand Smoke Exposure: No Recent Foreign Travel: No Contact w/Someone Who Travel: No Recent Hopitalizations: No Seasonal Allergies Seasonal Allergies: Yes Past Medical History Surgeries: 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 (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/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/REPLACEMENTS AND REMOVAL) Gallbladder, Neurological Respiratory: No Cardiac: No Neurological: Yes (HYDROCEPHALUS) Headaches /Migraines, Traumatic Brain Injury Reproductive Disorders: No Sexually Transmitted Disease: No HIV/AIDS: No Genitourinary: No Gastrointestinal: Yes Gastroesophageal Reflux, Gall Bladder Disease Musculoskeletal: Yes (SHOULDER PAIN) Endocrine: No HEENT: No Loss of Vision: Denies Hearing Impairment: Denies Cancer: No Psychosocial: Yes Anxiety Integumentary: No Blood Disorders: No Adverse Reaction/Blood Tranf: No (N/A) Physical Exam Vital Signs Vital Signs - First Documented 07/09/20 12:03 Temp 36.5 Pulse 58 Resp 20 B/P (MAP) 149/92 (111) Pulse Ox 99 O2 Delivery Room Air Capillary Refill : Height, Weight, BMI Height: 5'10.00" Weight: 200lbs. 4.0oz. 90.688966re; 27.00 BMI Method:Stated General Appearance: No Apparent Distress, WD/WN HEENT: PERRL/EOMI, TMs Normal Neck: Full Range of Motion, Normal Inspection Respiratory: No Accessory Muscle Use, No Respiratory Distress Gastrointestinal: Normal Bowel Sounds, Non Tender, Soft Neurologic/Psychiatric: Alert, Oriented x3 Skin: Normal Color, Warm/Dry Once again became upset when offered Toradol and Norflex for his neck and fernando ulder pain. He states "Whats you guys' problem?" Progress/Results/Core Measures Results/Orders My Orders Orders - MANUEL RED APRN Ct Head/Cervical Spine Wo (07/09/20 12:06) Shoulder, Right, 3 Views (07/09/20 12:06) Ketorolac Injection (Toradol Injection) (07/09/20 12:15) Orphenadrine Inj (Ed Only) (Norflex Inje (07/09/20 12:15) Vital Signs/I&O 07/09/20 12:03 Temp 36.5 Pulse 58 Resp 20 B/P (MAP) 149/92 (111) Pulse Ox 99 O2 Delivery Room Air Departure Communication (Admissions) 1213-patient requests now that I start an IV but he does not want a muscle relaxer because he already takes Flexeril. States he does not want a shot because they only make him hurt worse. Discussed with him that IV is not warranted in this situation. He again became upset. Impression Primary Impression: Cervical myofascial strain Additional Impression: Chronic shoulder pain Disposition: 01 HOME, SELF-CARE Condition: Stable Departure-Patient Inst. Decision time for Depature: 12:59 Referrals: NO,LOCAL PHYSICIAN (PCP/Family) Primary Care Physician Patient Instructions: Chronic Pain MANUEL RED BEVEL GEAR GENERATOR OPERATOR Jul 09, 2020 12:10
[2020-07-09] MEDS ORDERED: KETOROLAC 60 MG/2 ML VIAL IM ONE ×2 (12:15→13:15)
[2020-07-09] MEDS ORDERED: ORPHENADRINE 60 MG/2 ML (NORFLEX) AMP (ED ONLY) IM ONE ×2 (12:15→13:15)
--- NOTE | 2020-07-09 12:23 | Diagnostic Imaging Report ---
HISTORY: Fall down stairs two days ago with pain in the right shoulder. COMPARISON: None. TECHNIQUE: Three views of the right shoulder. FINDINGS: No acute fracture or dislocation is seen in the right shoulder. Alignment appears normal. Joint spaces are preserved. IMPRESSION: 1. No acute osseous abnormality is seen in the right shoulder. Dictated by: Dictated on workstation # [id number]
--- NOTE | 2020-07-09 12:55 | Diagnostic Imaging Report ---
PROCEDURE: CT head and CT cervical spine without contrast. TECHNIQUE: Multiple contiguous axial images were obtained through the brain and cervical spine without the use of intravenous contrast. Sagittal and coronal reformations through the cervical spine were then performed. Auto Exposure Controls were utilized during the CT exam to meet ALARA standards for radiation dose reduction. INDICATION: Chronic neck and shoulder pain after fall. COMPARISON: 07/04/2020. FINDINGS: CT HEAD: There is continued hydrocephalus with evidence of old miguel holes in the calvarium bilaterally. Encephalomalacia in the right frontal white matter is stable. There is no evidence of acute hemorrhage. No abnormal mass effect or shift of the midline structures is identified. IMPRESSION: Stable chronic findings without acute abnormality detected. CT CERVICAL SPINE: Comparison is made to the study of 03/29/2019. There is loss of normal cervical lordosis. Vertebral body heights and disc spaces are maintained. Prevertebral soft tissues are unremarkable and there is no evidence of paraspinous hematoma. IMPRESSION: Loss of normal cervical lordosis which may be due to positioning or muscle spasm. There is, otherwise, no CT evidence of acute cervical spinal abnormality. Dictated by: Dictated on workstation # [id number]
== END 2020-07-09 13:21 | disposition home or self-care (01) ==
LOC: EDUNIT# 11:33 → ER 11:34
DX: S16.1XXA Strain of muscle, fascia and tendon at neck level, initial encounter (principal); M25.511 Pain in right shoulder; F41.9 Anxiety disorder, unspecified; Z87.891 Personal history of nicotine dependence; Z87.820 Personal history of traumatic brain injury; W19.XXXA Unspecified fall, initial encounter; Y92.009 Unspecified place in unspecified non-institutional (private) residence as the place of occurrence of the external cause
CPT/HCPCS: 70450; 72125; 73030

== ENCOUNTER 2021-02-23 13:02 | Emergency (ER) | payer MEDICAID ==
[~2021-02-23] VITALS: Ht 167 cm; Wt 84.0 kg
[2021-02-23] MEDS ORDERED: PRD10T PO (14:09)
--- NOTE | 2021-02-23 14:09 | ED Back Pain ---
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 IN PAST HAS BEEN ON HYDROCODONE FOR CHRONIC HEADACHE. IN HAS SINCE TAKEN HIM OFF. Source of Information: Patient Exam Limitations: No Limitations History of Present Illness Date Seen by Provider: Feb 23, 2021 Time Seen by Provider: 14:06 Initial Comments To the new job at [employer] works. He has been twisting and lifting lately which has caused his back to flareup. He also had some increase in pain after lifting his mulching bag off of the lawnmower last night. He has Flexeril at home is not helping. Pain does not radiate down either leg Location: Lumbar Spine, Paraspinous Muscles Timing/Duration: 1-2 Days Severity: Moderate Pain/Injury Location: Back Associated Symptoms: denies symptoms Allergies and Home Medications Allergies Coded Allergies: No Known Drug Allergies (Unverified , 10/06/16) Home Medications Amoxicillin 875 Mg Tablet, 875 MG PO BID Prescribed by: BRODY ARAUZ on 04/02/19 0820 Butalb/Acetaminophen/Caffeine 1 Each Capsule, 1 EACH PO Q4H PRN for HEADACHE Prescribed by: ROSALINA GREEN on 03/29/19 1451 Clindamycin HCl 300 Mg Capsule, 300 MG PO Q6H Prescribed by: AISHWARYA WEBB on 07/03/20 1056 Diclofenac Sodium 50 Mg Tablet.dr, 50 MG PO BID PRN for PAIN-SEVERE Prescribed by: BRODY ARAUZ on 04/02/19 0820 Donepezil HCl 10 Mg Tablet, 20 MG PO DAILY, (Reported) Fluoxetine HCl 40 Mg Capsule, 60 MG PO DAILY, (Reported) Ibuprofen 800 Mg Tablet, 800 MG PO Q8H PRN for PAIN-MILD Prescribed by: MARINA ANDERSON on 03/24/19 1836 Prochlorperazine Maleate 10 Mg Tablet, 10 MG PO Q8H Prescribed by: LUIS ARMANDO MALIK on 11/26/19 1623 Patient Home Medication List Home Medication List Reviewed: Yes Review of Systems Constitutional: see HPI EENTM: see HPI Respiratory: no symptoms reported Cardiovascular: no symptoms reported Genitourinary: no symptoms reported Musculoskeletal: see HPI, back pain Skin: no symptoms reported Psychiatric/Neurological: No Symptoms Reported Past Msdoitj-Wjpyll-Wbstkv Hx Patient Social History Tobacco Use?: No Substance use?: No Pt feels they are or have been: No Immunizations Up To Date Tetanus Booster (TDap): Unknown First/Initial COVID19 Vaccinat: 02/23/21 COVID19 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 Seasonal Allergies Seasonal Allergies: Yes Past Medical History 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) Gallbladder, Neurological Respiratory: No Cardiac: No Neurological: Yes (HYDROCEPHALUS) Headaches /Migraines, Traumatic Brain Injury Reproductive Disorders: No Sexually Transmitted Disease: No HIV/AIDS: No Genitourinary: No Gastrointestinal: Yes Gastroesophageal Reflux, Gall Bladder Disease Musculoskeletal: Yes (SHOULDER PAIN) Endocrine: No HEENT: No Loss of Vision: Denies Hearing Impairment: Denies Cancer: No Psychosocial: Yes Anxiety Integumentary: No Blood Disorders: No Adverse Reaction/Blood Tranf: No (N/A) Physical Exam Vital Signs Vital Signs - First Documented 02/23/21 13:13 Temp 36.5 Pulse 115 Resp 18 B/P (MAP) 162/105 (124) Pulse Ox 100 O2 Delivery Room Air Capillary Refill : Less Than 3 Seconds Height, Weight, BMI Height: 5'10.00" Weight: 200lbs. 4.0oz. 90.325183fq; 30.00 BMI Method:Stated General Appearance: No Apparent Distress, WD/WN Neck: Full Range of Motion, Normal Inspection Respiratory: No Accessory Muscle Use, No Respiratory Distress Gastrointestinal: Normal Bowel Sounds, Non Tender, Soft Extremity: Normal Capillary Refill, Normal Inspection Neurologic/Psychiatric: Alert, Oriented x3 Skin: Normal Color, Warm/Dry Progress/Results/Core Measures Results/Orders My Orders Orders - MANUEL RED APRN Ketorolac Injection (Toradol Injection) (02/23/21 14:15) Vital Signs/I&O 02/23/21 13:13 Temp 36.5 Pulse 115 Resp 18 B/P (MAP) 162/105 (124) Pulse Ox 100 O2 Delivery Room Air Blood Pressure Mean: 124 Departure Impression Primary Impression: Acute low back pain Disposition: 01 HOME, SELF-CARE Condition: Stable Departure-Patient Inst. Decision time for Depature: 14:08 Referrals: NO,LOCAL PHYSICIAN (PCP/Family) Primary Care Physician Patient Instructions: Low Back Pain in Adults Add. Discharge Instructions: 1. Follow-up with your primary care provider on Thursday to discuss further evaluation which may include MRI of the back. All discharge instructions reviewed with patient and/or family. Voiced understanding. Scripts Prednisone (Prednisone) 10 Mg Tab 40 MG PO DAILY, #16 EA Prov: MANUEL RED APRN 02/23/21 Work/School Note: Work Release Form Date Seen in the Emergency Department: Feb 23, 2021 Return to Work: Feb 26, 2021 MANUEL RED APRN Feb 23, 2021 14:09
[2021-02-23] MEDS: KETOROLAC 60 MG/2 ML VIAL IM ONE ×2 (14:23→14:26)
[2021-02-23 14:25] VITALS: BP 162/105
== END 2021-02-23 14:32 | disposition home or self-care (01) ==
LOC: EDUNIT# 13:02 → ER 13:04
DX: M54.5 Low back pain (principal); F41.9 Anxiety disorder, unspecified; Z87.820 Personal history of traumatic brain injury; Z79.899 Other long term (current) drug therapy
CPT/HCPCS: 99281

== ENCOUNTER 2021-02-24 18:56 | Emergency (ER) | payer MEDICAID ==
[~2021-02-24] VITALS: Ht 177.8 cm; Wt 86.2 kg
[~2021-02-24 18:56] MED LIST changes: +PRD10T PO
[2021-02-24] MEDS ORDERED: LACTATED RINGERS 1,000 ML IV STA (19:23)
[2021-02-24] MEDS ORDERED: FAMOTIDINE 20MG/2ML IV (PEPCID) IV STA (19:23)
[2021-02-24] MEDS ORDERED: METHYLNALTREXONE 12 MG/0.6 ML (RELISTOR) VIAL SQ ONE (19:30)
[2021-02-24] MEDS ORDERED: ONDANSETRON 4 MG/2 ML (SDV) Z0FRAN IVP ONE (19:30)
[2021-02-24] MEDS ORDERED: ACETAMINOPHEN 500 MG TAB (TYLENOL) PO ONE (19:30)
[2021-02-24] MEDS ORDERED: LIDOCAINE 2% VISCOUS 15 ML UDC PO ONE (19:30)
[2021-02-24] MEDS ORDERED: ANTACID SUSP 30 ML UDC (MYLANTA) PO ONE (19:30)
[2021-02-24 19:32] LABS: BASOPHILS % (AUTO) 0 % (0-10); EOSINOPHILS # (AUTO) 0.1 10^3/uL (0.0-0.3); EOSINOPHILS % (AUTO) 1 % (0-10); HEMATOCRIT 52 % (40-54); HEMOGLOBIN 17.2 g/dL (13.3-17.7); LYMPHOCYTES # (AUTO) 2.3 10^3/uL (1.0-4.0); LYMPHOCYTES % (AUTO) 20 % (12-44); MEAN CORPUSCULAR HEMOGLOBIN 30 pg (25-34); MEAN CORPUSCULAR HGB CONC 33 g/dL (32-36); MEAN CORPUSCULAR VOLUME 90 fL (80-99); MEAN PLATELET VOLUME 9.1 fL (9.0-12.2); MONOCYTES # (AUTO) 0.8 10^3/uL (0.0-1.0); MONOCYTES % (AUTO) 7 % (0-12); NEUTROPHILS # (AUTO) 7.9 10^3/uL (1.8-7.8); NEUTROPHILS % (AUTO) 71 % (42-75); PLATELET COUNT 310 10^3/uL (130-400); WHITE BLOOD COUNT 11.1 10^3/uL (4.3-11.0)
--- NOTE | 2021-02-24 19:33 | ED GI ---
General Chief Complaint: Abdominal/GI Problems Stated Complaint: STOMACH PAIN, CONSTIPATED Source of Information: Patient Exam Limitations: No Limitations History of Present Illness Date Seen by Provider: Feb 24, 2021 Time Seen by Provider: 19:19 Initial Comments 40-year-old male with past medical history of TBI, hydrocephalus, and reportedly opioid use disorder coming in due to nausea with induced vomiting that began yesterday morning. He states Thursday night he ate what he thinks was some bad buffet food. Woke up Thursday morning feeling nauseous. He states he has vomited multiple times since then. Every time he vomits now, he states it is him inducing it as he puts his finger down his throat to do it. He feels slightly better after each attempt. He is also concerned that he is constipated and has not had a bowel movement since . He believes this could all be related. Denies any chest pain, shortness of breath, abdominal pain, diarrhea, dysuria, rash, weakness, numbness, headache, vision changes, or any other concerns. The nausea is intermittent, better with vomiting, moderate, and started yesterday. Allergies and Home Medications Allergies Coded Allergies: No Known Drug Allergies (Unverified , 10/06/16) Home Medications Amoxicillin 875 Mg Tablet, 875 MG PO BID Prescribed by: RBODY ARAUZ on 04/02/19 0820 Butalb/Acetaminophen/Caffeine 1 Each Capsule, 1 EACH PO Q4H PRN for HEADACHE Prescribed by: ROSALINA GREEN on 03/29/19 1451 Clindamycin HCl 300 Mg Capsule, 300 MG PO Q6H Prescribed by: AISHWARYA WEBB on 07/03/20 1056 Diclofenac Sodium 50 Mg Tablet.dr, 50 MG PO BID PRN for PAIN-SEVERE Prescribed by: BRODY ARAUZ on 04/02/19 0820 Donepezil HCl 10 Mg Tablet, 20 MG PO DAILY, (Reported) Fluoxetine HCl 40 Mg Capsule, 60 MG PO DAILY, (Reported) Ibuprofen 800 Mg Tablet, 800 MG PO Q8H PRN for PAIN-MILD Prescribed by: MARINA ANDERSON on 03/24/19 1836 Prednisone 10 Mg Tab, 40 MG PO DAILY Prescribed by: MANUEL RED on 02/23/21 1409 Prochlorperazine Maleate 10 Mg Tablet, 10 MG PO Q8H Prescribed by: LUIS ARMANDO MALIK on 11/26/19 1623 Patient Home Medication List Home Medication List Reviewed: Yes Review of Systems Review of Systems Constitutional: No fever EENTM: No Blurred Vision Respiratory: Denies Cough, Denies Shortness of Air Cardiovascular: Denies Chest Pain Gastrointestinal: Denies Abdominal Pain; Constipated, Nausea, Vomiting Genitourinary: Denies Burning Musculoskeletal: No back pain, No joint pain Skin: No rash Psychiatric/Neurological: Denies Anxiety, Denies Depressed Endocrine: No Symptoms Reported Hematologic/Lymphatic: No Symptoms Reported All Other Systems Reviewed Negative Unless Noted: Yes Past Tfavgld-Izfbzp-Uetszl Hx Patient Social History Tobacco Use?: Yes Immunizations Up To Date Tetanus Booster (TDap): Unknown Seasonal Allergies Seasonal Allergies: Yes Past Medical History 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) Gallbladder, Neurological Respiratory: No Cardiac: No Neurological: Yes (HYDROCEPHALUS) Headaches /Migraines, Traumatic Brain Injury Reproductive Disorders: No Sexually Transmitted Disease: No HIV/AIDS: No Genitourinary: No Gastrointestinal: Yes Gastroesophageal Reflux, Gall Bladder Disease Musculoskeletal: Yes (SHOULDER PAIN) Endocrine: No HEENT: No Loss of Vision: Denies Hearing Impairment: Denies Cancer: No Psychosocial: Yes Anxiety Integumentary: No Blood Disorders: No Adverse Reaction/Blood Tranf: No (N/A) Physical Exam Vital Signs Vital Signs - First Documented 02/24/21 19:02 Temp 36.3 Pulse 107 Resp 18 B/P (MAP) 136/94 (108) Pulse Ox 96 O2 Delivery Room Air Capillary Refill : Height/Weight/BMI Height: 5'10.00" Weight: 200lbs. 4.0oz. 90.664669up; 30.00 BMI Method:Stated General Appearance: WD/WN, no apparent distress HEENT: PERRL/EOMI, normal ENT inspection, pharynx normal Neck: non-tender, full range of motion, supple, normal inspection Respiratory: chest non-tender, lungs clear, normal breath sounds, no respiratory distress, no accessory muscle use Cardiovascular: regular rate, rhythm, no edema, no murmur Gastrointestinal: normal bowel sounds, non tender, soft; No distended, No guarding, No rebound Extremities: normal range of motion, non-tender, normal inspection, no pedal edema, no calf tenderness Back: normal inspection, no CVA tenderness Neurologic/Psychiatric: no motor/sensory deficits, alert, normal mood/affect Skin: normal color, warm/dry Lymphatic: no adenopathy Progress/Results/Core Measures Results/Orders Lab Results Laboratory Tests Test 02/24/21 19:10 Range/Units White Blood Count 11.1 H 4.3-11.0 10^3/uL Red Blood Count 5.72 H 4.30-5.52 10^6/uL Hemoglobin 17.2 13.3-17.7 g/dL Hematocrit 52 40-54 % Mean Corpuscular Volume 90 80-99 fL Mean Corpuscular Hemoglobin 30 25-34 pg Mean Corpuscular Hemoglobin Concent 33 32-36 g/dL Red Cell Distribution Width 12.8 10.0-14.5 % Platelet Count 310 130-400 10^3/uL Mean Platelet Volume 9.1 9.0-12.2 fL Immature Granulocyte % (Auto) 0 % Neutrophils (%) (Auto) 71 42-75 % Lymphocytes (%) (Auto) 20 12-44 % Monocytes (%) (Auto) 7 0-12 % Eosinophils (%) (Auto) 1 0-10 % Basophils (%) (Auto) 0 0-10 % Neutrophils # (Auto) 7.9 H 1.8-7.8 10^3/uL Lymphocytes # (Auto) 2.3 1.0-4.0 10^3/uL Monocytes # (Auto) 0.8 0.0-1.0 10^3/uL Eosinophils # (Auto) 0.1 0.0-0.3 10^3/uL Basophils # (Auto) 0.0 0.0-0.1 10^3/uL Immature Granulocyte # (Auto) 0.0 0.0-0.1 10^3/uL Sodium Level 141 135-145 MMOL/L Potassium Level 3.8 3.6-5.0 MMOL/L Chloride Level 106 98-107 MMOL/L Carbon Dioxide Level 23 21-32 MMOL/L Anion Gap 12 5-14 MMOL/L Blood Urea Nitrogen 13 7-18 MG/DL Creatinine 1.15 0.60-1.30 MG/DL Estimat Glomerular Filtration Rate 70 BUN/Creatinine Ratio 11 Glucose Level 127 H 70-105 MG/DL Calcium Level 10.2 H 8.5-10.1 MG/DL Corrected Calcium 8.5-10.1 MG/DL Total Bilirubin 0.9 0.1-1.0 MG/DL Aspartate Amino Transf (AST/SGOT) 14 5-34 U/L Alanine Aminotransferase (ALT/SGPT) 21 0-55 U/L Alkaline Phosphatase 67 40-136 U/L Total Protein 8.7 H 6.4-8.2 GM/DL Albumin 4.7 H 3.2-4.5 GM/DL Lipase 19 8-78 U/L My Orders Orders - MONI ALARCON MD Comprehensive Metabolic Panel (02/24/21 19:23) Lipase (02/24/21 19:23) Cbc With Automated Diff (02/24/21 19:23) Acetaminophen Tablet (Tylenol Tablet) (02/24/21 19:30) Ondansetron Injection (Zofran Injectio (02/24/21 19:30) Lidocaine 2% Viscous 15 Ml (Xylocaine Vi (02/24/21 19:30) Antacid Suspension (Mylanta Suspension (02/24/21 19:30) Lactated Ringers (Lr 1000 Ml Iv Solution (02/24/21 19:23) Famotidine Injection (Pepcid Injection) (02/24/21 19:23) Ed Iv/Invasive Line Start (02/24/21 19:23) Methylnaltrexone Injection (Relistor Inj (02/24/21 19:30) Medications Given in ED Current Medications Medications Dose Ordered Sig/Daquan Route Start Time Stop Time Status Last Admin Dose Admin Acetaminophen 1,000 mg ONCE ONCE PO 02/24/21 19:30 02/24/21 19:31 DC 02/24/21 19:45 1,000 MG Al Hydrox/Mg Hydrox/Simethicone 30 ml ONCE ONCE PO 02/24/21 19:30 02/24/21 19:31 DC 02/24/21 19:49 30 ML Lidocaine HCl 15 ml ONCE ONCE PO 02/24/21 19:30 02/24/21 19:31 DC 02/24/21 19:49 15 ML Methylnaltrexone [place] 12 mg ONCE ONCE SQ 02/24/21 19:30 02/24/21 19:31 DC 02/24/21 19:51 12 MG Ondansetron HCl 4 mg ONCE ONCE IVP 02/24/21 19:30 02/24/21 19:31 DC 02/24/21 19:46 4 MG Vital Signs/I&O 02/24/21 19:02 Temp 36.3 Pulse 107 Resp 18 B/P (MAP) 136/94 (108) Pulse Ox 96 O2 Delivery Room Air Progress Progress Note : Progress Note 40-year-old male with above history coming in with nausea, episodes of induced vomiting, and constipation. ABCs were intact and vitals were stable on presentation. Physical exam reassuring as he has no abdominal tenderness. Specifically, when I and listening to his bowel sounds and pushing very hard with the stethoscope, he is not complaining of any pain and is very calm. Then when I would touch him lightly with my hand he would say that it hurt a lot. Labs including electrolytes are reassuring. After the IV fluids he did appear better. Reassess his abdominal exam and he had no tenderness. He states he is feeling better. I believe he is stable for discharge. He was sent home with strict return precautions. Departure Impression Primary Impression: Constipation Qualified Codes: K59.00 - Constipation, unspecified Additional Impression: Nausea and vomiting Qualified Codes: R11.2 - Nausea with vomiting, unspecified Disposition: 01 HOME, SELF-CARE Condition: Stable Departure-Patient Inst. Decision time for Depature: 20:26 Referrals: NO,LOCAL PHYSICIAN (PCP/Family) Primary Care Physician Patient Instructions: Constipation, Adult (DC), Nausea and Vomiting, Adult Add. Discharge Instructions: You were seen in the emergency department for nausea and vomiting with constipation. Please take your Zofran for nausea at home that you already have. The medicine we gave you should help with constipation within the next day or so. If it does not then buy some MiraLAX vnei-sme-ragdezu and begin taking that. If you have any fever, vomiting that will not stop, or any other concerns please come back to the emergency department. All discharge instructions reviewed with patient and/or family. Voiced understanding. Work/School Note: Work Release Form Date Seen in the Emergency Department: Feb 24, 2021 Return to Work: Feb 26, 2021 Restrictions: No Restrictions MONI ALARCNO MD Feb 24, 2021 19:33
[2021-02-24 19:43] LABS: ALANINE AMINOTRANSFERASE 21 U/L (0-55); ALBUMIN 4.7 GM/DL (3.2-4.5); ALKALINE PHOSPHATASE 67 U/L (40-136); BILIRUBIN,TOTAL 0.9 MG/DL (0.1-1.0); BUN/CREATININE RATIO 11; CALCIUM 10.2 MG/DL (8.5-10.1); CARBON DIOXIDE 23 MMOL/L (21-32); CHLORIDE 106 MMOL/L (98-107); CREATININE SERUM 1.15 MG/DL (0.60-1.30); GFR ESTIMATED 70; GLUCOSE 127 MG/DL (70-105); LIPASE 19 U/L (8-78); POTASSIUM 3.8 MMOL/L (3.6-5.0); SODIUM 141 MMOL/L (135-145); TOTAL PROTEIN 8.7 GM/DL (6.4-8.2)
[2021-02-24 20:34] VITALS: BP 132/87
== END 2021-02-24 20:37 | disposition home or self-care (01) ==
LOC: EDUNIT# 18:56 → ER 18:58
DX: K59.00 Constipation, unspecified (principal); R11.2 Nausea with vomiting, unspecified; F41.9 Anxiety disorder, unspecified; Z87.820 Personal history of traumatic brain injury; Z79.899 Other long term (current) drug therapy
CPT/HCPCS: 36415; 80053; 83690; 85025

== ENCOUNTER → 2021-11-06 | Outpatient (CLI) | payer MEDICAID ==
[~2021-11-06] MED LIST changes: +CLIN-144 PO; -CLIN300C12 PO; +CYCL10TA25 PO; -CYCL10TA9 PO; +DICY20TA PO; -DICY20TA10 PO; +ONDA-106; -ONDA8TAB15
[2021-11-06 12:04] LABS: AMPHETAMINE SCREEN, URINE NEGATIVE (NEGATIVE); BARBITURATE SCREEN URINE NEGATIVE (NEGATIVE); BENZODIAZEPINES SCREEN URINE NEGATIVE (NEGATIVE); CANNABINOID SCREEN, URINE NEGATIVE (NEGATIVE); COCAINE SCREEN URINE NEGATIVE (NEGATIVE); METHADONE STAT NEGATIVE (NEGATIVE); METHAMPHETAMINE SCREEN URINE S NEGATIVE (NEGATIVE); OPIATE SCREEN URINE NEGATIVE (NEGATIVE); OXYCODONE STAT NEGATIVE (NEGATIVE); PROPOXYPHENE STAT NEGATIVE (NEGATIVE); TRICYCLIC ANTIDEPRESSANTS SCRE NEGATIVE (NEGATIVE)
== END ==
LOC: LAB 11:35
PROVIDERS: ATTEND Family Medicine
DX: R51.9 Headache, unspecified (principal)
CPT/HCPCS: 80306